=== PATIENT | male | born 1945 | race Caucasian/White ===

== ENCOUNTER → 2017-08-19 | Outpatient (CLI) | payer OTHER, MEDICARE ==
[~2017-08-19] MED LIST: OPTIRAY 320 IV PRN
--- NOTE | 2017-08-19 11:19 | DIAGNOSTIC IMAGING REPORT ---
ABD/PELVIS IV CONTRAST ONLY CT DOSE: 345.99 mGy.cm HISTORY: Obstruction. Pain. N40.1 Benign prostatic hyperplasia with urinary [id number] TECHNIQUE: Multiaxial CT images of the abdomen and pelvis were performed following the use of intravenous contrast. A dose lowering technique was utilized adhering to the principles of ALARA. COMPARISON STUDY: None. FINDINGS: Lung bases are clear. Mild fatty infiltration of liver. Prior cholecystectomy. Pancreas is uniform. Spleen is unremarkable. Kidneys negative for calcification. Left kidney is negative for hydronephrosis. Right kidney shows a mid pole exophytic cyst measuring 3.2 x 2.6 cm. Bowel pattern is considered nonobstructive. The appendix is normal. There are multiple small bladder calcifications. Prostate is mildly enlarged. Bowel pattern of the abdomen and pelvis is nonobstructive. There is no significant adenopathy. There are degenerative changes of the osseous structures throughout the low thoracic as well as lumbar spine and bony pelvis. No true lytic or blastic process is appreciated. IMPRESSION: 1. Multiple small bladder calculi. 2. Mild prostatic enlargement. 3. 3 cm right renal cyst. 4. Otherwise negative study status post cholecystectomy. The above report was generated using voice recognition software. It may contain grammatical, syntax or spelling errors. Electronically signed by: Salomón Melgar M.D. 08/19/2017 11:18 AM Dictated Date/Time: 08/19/2017 11:14 AM
== END | disposition home or self-care (01) ==
LOC: C.CTS 10:25
PROVIDERS: ATTEND Urology
DX: N40.1 Benign prostatic hyperplasia with lower urinary tract symptoms (principal); N21.0 Calculus in bladder; N28.1 Cyst of kidney, acquired

== ENCOUNTER → 2017-12-25 | Outpatient (CLI) | payer OTHER, MEDICARE ==
[2017-12-25 10:02] LABS: BLOOD UREA NITROGEN 29 mg/dl (7-18); CALCIUM 9.6 mg/dl (8.5-10.1); CARBON DIOXIDE 33 mmol/L (21-32); CREATININE 1.09 mg/dl (0.60-1.40); GLUCOSE 107 mg/dl (70-99); POTASSIUM 3.5 mmol/L (3.5-5.1); SODIUM 137 mmol/L (136-145)
== END | disposition home or self-care (01) ==
LOC: C.LAB1850 08:43
PROVIDERS: ATTEND Internal Medicine Endocrinology, Diabetes & Metabolism
DX: N25.81 Secondary hyperparathyroidism of renal origin (principal); E55.9 Vitamin D deficiency, unspecified; E83.50 Unspecified disorder of calcium metabolism

== ENCOUNTER 2024-05-08 10:21 | Observation (INO) ==
--- NOTE | 2024-05-08 11:43 | Emergency Department Note ---
Impression & Plan Stroke-like symptoms, Carotid arterial disease ED Provider Note NAME: KIRK GUERRERO AGE: 78 SEX: M : 1945 ARRIVES VIA: Walk-In INFORMANT: Patient, ED PROVIDER(S): Dre Boyd DO CHIEF COMPLAINT: Strokelike symptoms HPI: The patient is an 78-year-old male who is referred to the emergency department from [facility] for an evaluation of strokelike symptoms. The patient states that he went to bed last evening at approximately 11 PM. That was his normal time to go to bed and he felt well. He awoke at 3 AM to urinate. He states that he had noticed that he had numbness over the left side of his face but also into his left arm. He did not notice the symptoms somewhat into his left leg. He denies having any neck pain. He denies having any weakness in the arms or legs. He denies having any headache. He was seen at [facility] and referred to the emergency department for possible strokelike symptoms. The patient was recently admitted to our facility for pneumonia. He states he feels much better and has no complaints of cough or difficulty breathing. He denies having any chest pain. ROS: See above HPI for pertinent positives & negatives. A total of 10 systems reviewed and were otherwise negative. PAST MEDICAL HISTORY: See Below PAST SURGICAL HISTORY: See Below FAMILY HISTORY: See Below SOCIAL HISTORY: See Below HOME MEDICATIONS: See Below ALLERGIES: See Below VITALS: See Below PHYSICAL EXAMINATION: GENERAL: Patient is awake alert in no acute distress patient is resting comfortably and showing no signs of anxiety EYES: The conjunctivae are clear. The pupils are round and reactive. EARS, NOSE, MOUTH AND THROAT: The nose is without any evidence of any deformity. NECK: The neck is nontender and supple. There is no bruit noted to auscultation. RESPIRATORY: Normal respiratory effort is noted there is no evidence of wheezing rhonchi or rales CARDIOVASCULAR: Regular rate and rhythm noted there no murmurs rubs or gallops normal S1 normal S2. GASTROINTESTINAL: The abdomen is soft. Abdomen is nontender. MUSCULOSKELETAL/EXTREMITIES: There is no evidence of gross deformity full range of motion is noted in the hips and shoulders. SKIN: There is no obvious evidence of any rash. There are no petechiae, pallor or cyanosis noted. NEUROLOGIC: Patient is awake alert and oriented x3 strength is symmetric patellar reflexes are 2+ bilaterally MEDICAL DECISION MAKING: The patient is an 78-year-old male who presented to the emergency department for strokelike symptoms. Symptoms began less than 24 hours but the patient did not appear to have very significant NIH score at this time. He was not made a stroke alert. There is no concern for large vessel occlusion. I discussed the patient's laboratory and radiographic studies with him. The patient was found to have carotid artery disease. His symptoms could be caused by a central nervous system lesion. It is possible the patient could decompensate and may have a larger insult if he does have outpatient follow-up. For this reason I discussed his condition with the on-call [facility]. Triage Nursing notes reviewed. Prior medical records reviewed Vital Signs: reviewed and remarkable for no significant abnormalities Differential diagnosis: Infection, dehydration, metabolic abnormality, hypo/hyperglycemia, electrolyte disturbance, anemia, hypoxia, cardiac sources, intracerebral event, toxicologic, neurologic, as well as other pathologies. ER treatment provided: See below Diagnostics interpreted by me: ECG: EKG was obtained in the emergency department. My interpretation is normal sinus rhythm at 63 bpm. There is no ectopy. Right bundle-branch block pattern was noted. This was compared to a tracing from April 28, 2024. No changes were noted. Cardiac Monitoring: An order was placed for continuous cardiac monitoring. The monitor shows a rate of 71 bpm with sinus rhythm. Laboratory studies: As stated above and show below. Imaging studies: See below. Radiographic imaging was reviewed by myself Consultation(s): I discussed this case with the family practice resident who is on-call for the [facility]. Past Med/Surg History Problem List (Updated 05/08/24 @ 14:16 by Dre Boyd DO) Carotid arterial disease (Acute) Stroke-like symptoms (Acute) Transaminitis (Acute) Dyspnea (Acute) Pneumonia (Acute) Left carpal tunnel syndrome Encounter for pre-operative examination Dysphagia Moderate to severe aortic stenosis Chest pain (Acute) Prostate cancer screening encounter, options and risks discussed Bladder dysfunction Urinary retention Nephrolithiasis Urethral stricture Dysuria Nephrolithiasis 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[facility] Chronic prostatitis (Acute) Hypercalciuria (Acute) Hypothyroidism (Acute) Vitamin D deficiency (Acute) Medical History 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[facility] Hypothyroidism Chronic prostatitis Dysphagia "is doing better" Acid reflux hx, no current meds. History of colon polyps Urinary problem in male self cath daily in the morning. History of kidney stones Tricuspid regurgitation mild to moderate echo 10/2023 "valve getting a little smaller"; f/u [facility] cardio. Pulmonary hypertension mild Aortic stenosis Moderate per 03/29/21 ECHO echo 10/2023 "valve getting a little smaller"; f/u [facility]. HTN (hypertension) hx-controlled, stable per pt; no current meds Temporomandibular joint disorder occasional locking, happens infrequently History of COVID-19 08/2020--coughing--no residual symptoms Chronic sinusitis Benign prostatic hyperplasia with urinary obstruction HX Bladder stones HX Surgical History History of urologic surgery possibly 2 procedures in hx/pt unsure/unknown details. History of esophageal dilatation History of esophagogastroduodenoscopy (EGD) History of colonoscopy History of tooth extraction most teeth have been removed--states only has 6 teeth History of bilateral cataract extraction H/O knee surgery meniscus repair, RIGHT Hx of cholecystectomy History of carpal tunnel surgery right/left Family History Brother Kidney stone Father Cardiovascular disease Family history of prostate problems Cardiac disorder Stroke Sister Cancer Mother Squamous cell carcinoma Other No family history of adverse response to anesthesia Social History Smoking Status: Never smoker Second Hand Exposure: No; Do You Dip or Chew Tobacco: No; Hx Alcohol Use: No Hx Substance Use: No Preferred Language: Palestinian Communication Ability: Effective Shade Matcher Required: No Beliefs That Will Affect Care: None marital status: Current Living Situation: Spouse Feels Safe at Home: Yes Assistive Devices: Denture - Upper, Denture - Lower and Glasses Allergies Allergies Allergy/AdvReac Type Severity Reaction Status Date / Time No Known Allergies Allergy Verified 05/08/24 14:13 Home Meds Home Medications Medication Instructions Recorded Confirmed aspirin 81 mg chewable tablet 1 tab PO QAM 12/06/19 05/08/24 glucosamine-chondroitin 250 mg-200 1 tab PO QAM 12/06/19 05/08/24 mg tablet srpggyjg-hyj-brldx acid 0.4 1 tab PO QAM 12/06/19 05/08/24 mg-lycopene 300 mcg-lutein 250 mcg tablet (Centrum Silver) omega-3 fatty acids 1 cap PO QAM 12/10/23 05/08/24 calcitriol 0.25 mcg capsule 0.25 mcg PO QAM 12/24/23 05/08/24 (Rocaltrol) cefdinir 300 mg capsule 300 mg PO Q12H 05/08/24 05/08/24 Previous Rx's Medication Instructions Recorded levothyroxine 75 mcg tablet 75 mcg PO QAM #90 tabs 02/04/24 Results & Data (ED) Vital Signs Vital Signs - 24 hr 05/08/24 10:29 05/08/24 10:45 05/08/24 10:45 Temperature 36.4 C L Temperature Source Temporal Artery Scan Pulse Rate 76 68 66 Pulse Rate from SpO2 Sensor 65 Respiratory Rate 16 20 Respiratory Effort / Characteristics Non-Labored Spontaneous Respiratory Depth Normal Blood Pressure 136/82 Blood Pressure Mean 100 Pulse Oximetry 97 96 Oxygen Delivery Method Room Air Room Air Sepsis Recent Fever Within 48 Hours No Sepsis New/Unexplained Change in Mental Status No Sepsis Action Taken by Nursing No Action Required 05/08/24 10:57 05/08/24 11:00 05/08/24 11:21 Temperature Temperature Source Pulse Rate 70 66 65 Pulse Rate from SpO2 Sensor 68 66 65 Respiratory Rate 14 21 21 Respiratory Effort / Characteristics Respiratory Depth Blood Pressure Blood Pressure Mean Pulse Oximetry 97 98 98 Oxygen Delivery Method Room Air Room Air Room Air Sepsis Recent Fever Within 48 Hours Sepsis New/Unexplained Change in Mental Status Sepsis Action Taken by Nursing 05/08/24 11:33 05/08/24 12:12 05/08/24 13:42 Temperature Temperature Source Pulse Rate 61 68 71 Pulse Rate from SpO2 Sensor 60 67 Respiratory Rate 15 17 20 Respiratory Effort / Characteristics Respiratory Depth Blood Pressure 133/101 H 114/61 116/71 Blood Pressure Mean 111 78 86 Pulse Oximetry 98 98 98 Oxygen Delivery Method Room Air Sepsis Recent Fever Within 48 Hours Sepsis New/Unexplained Change in Mental Status Sepsis Action Taken by Retirement Medications Current Medication List: was personally reviewed by me Laboratory Data Attestation: I reviewed the patient's lab results. 05/08/24 10:48 05/08/24 10:48 Lab Results 05/08/24 Range/Units 10:48 WBC 8.51 (4.8-10.8) K/ul RBC 4.58 L (4.70-6.10) M/uL Hgb 13.4 L (14.0-18.0) g/dl Hct 40.6 L (42.0-52.0) % MCV 88.6 (80.0-100.0) fL MCH 29.3 (25.0-34.0) pg MCHC 33.0 (32.0-36.0) g/dL RDW Std Deviation 43.1 (36.4-46.3) fL RDW Coeff of Jayleen 13.2 (11.5-14.5) % Plt Count 260 (130-400) K/uL MPV 9.4 (9.4-12.4) fL Immature Gran % (Auto) 0.4 % Neut % (Auto) 77.1 % Lymph % (Auto) 14.8 % Latimer % (Auto) 5.3 % Eos % (Auto) 1.6 % Baso % (Auto) 0.8 % Neut # (Auto) 6.56 H (1.40-6.50) K/uL Lymph # (Auto) 1.26 (1.20-3.40) K/uL Latimer # (Auto) 0.45 (0.11-0.59) K/uL Eos # (Auto) 0.14 (0.00-0.50) K/uL Baso # (Auto) 0.07 (0.00-0.20) K/uL Immature Gran # (Auto) 0.03 (0.01-0.20) K/uL PT 11.1 (9.0-12.0) Seconds INR 1.0 (0.9-1.1) APTT 28 (21-31) Seconds PTT Ratio 1.0 Sodium 138 (136-145) mmol/L Potassium 4.1 (3.5-5.1) mmol/L Chloride 103 (98-107) mmol/L Carbon Dioxide 29 (21-32) mmol/L Anion Gap 6 (3-11) BUN 31 H (6-23) mg/dl Creatinine 0.92 (0.6-1.4) mg/dl Est Cr Clr Drug Dosing 63.8 ml/min Est GFR ( Amer) 90.7 ml/min Est GFR (Non-Af Amer) 78.3 ml/min BUN/Creatinine Ratio 33.7 H (10-20) Glucose 109 H (70-99(Fasting)) mg/dl Calcium 9.1 (8.6-10.3) mg/dl Magnesium 2.0 (1.7-2.4) mg/dl Total Bilirubin 0.5 (0.2-1.0) mg/dl AST 26 (13-39) U/L ALT 43 (7-52) U/L Alkaline Phosphatase 62 (34-104) U/L Troponin I High Sens 4.6 (0-20) pg/ml Total Protein 7.7 (6.0-8.3) gm/dl Albumin 4.0 (3.4-5.0) gm/dl Globulin 3.7 (2.5-4.0) gm/dl Albumin/Globulin Ratio 1.1 (0.9-2) Administered Medications Discontinued Medications Ioversol (Optiray 320 125ml) 118 ml IV ONCE ONE Stop: 05/08/24 12:44 Last Admin: 05/08/24 12:43 Dose: 118 ml Documented By: [facility] Imaging Data Attestation: I personally reviewed and interpreted this imaging study as follows: My Impression: 1 view chest x-ray was obtained in the emergency department. My interpretation is no free air, final report below. CT of the brain was obtained in the emergency department. My interpretation is no intracranial hemorrhage or mass effect, final report below. Radiologist's Impression: Chest X-Ray 05/08/24 11:11 XR chest 1V portable HISTORY: neuro deficit, acute stroke suspected COMPARISON: Chest 04/28/2024. FINDINGS: No pneumothorax. No pleural effusions. The cardiac silhouette remains top normal in size. No evidence for pulmonary edema. No acute fractures. The right lung airspace opacities have improved/resolved in the interval. No new focal lung consolidations to suggest a pneumonia. No evidence for pulmonary edema. IMPRESSION: Interval improvement/resolution of the right lung airspace opacities. ACT 112: Negative or not required by law. Electronically signed by: Alphonso Macedo M.D. 05/08/2024 12:[address] 05/08/24 11:11 CT SCAN OF THE BRAIN WITHOUT IV CONTRAST CLINICAL HISTORY: Neurological deficit. Stroke like symptoms. COMPARISON STUDY: No priors. TECHNIQUE: Unenhanced axial CT scan of the brain is performed from the vertex to the skull base. A dose lowering technique was utilized adhering to the principles of ALARA. FINDINGS: Brain parenchyma: There is age-related involutional change noting mild subcortical and periventricular microangiopathic disease. There is no hemorrhage, mass effect, or evidence of acute territorial ischemia by CT criteria. Dixon-white matter differentiation is preserved. No extra-axial fluid collection is seen. Ventricles, sulci, cisterns: Prominent secondary to involutional change. Intracranial vasculature: There is atherosclerotic calcification of the cavernous carotid arteries. Calvarium: Unremarkable. Sinuses and mastoids: There is mild mucosal thickening in the right maxillary antrum. The remaining visualized paranasal sinuses are clear. There is a small right mastoid effusion. The left mastoid air cells are well pneumatized. Orbits: The bony orbits are grossly intact. There are bilateral ocular lens implants IMPRESSION: There is no hemorrhage, mass effect, or evidence of acute territorial ischemia by CT criteria. ACT 112: Negative or not required by law. Electronically signed by: Quan Ochoa M.D. 05/08/2024 12:54 PM Head CTA 05/08/24 11:11 HEAD CTA HISTORY: neuro deficit, acute stroke suspected TECHNIQUE: Multiaxial CT images of the head were performed following the intravenous administration of contrast to evaluate the major cerebral vessels. 3D/MIP images were also obtained. Sagittal and coronal reformats were reviewed. A dose lowering technique was utilized adhering to the principles of ALARA. COMPARISON: None. FINDINGS: There is no mass, hematoma, midline shift, or acute infarct. Visualized intracranial internal carotid arteries, distal vertebral arteries, and basilar artery are widely patent. There is no significant stenosis, occlusion, or aneurysm seen within the bilateral ACAs, MCAs, or fishery biologist. The major dural venous sinuses are patent. Mild calcified plaque within the bilateral carotid siphons. The distal right vertebral artery is hypoplastic. This is likely a normal variant. IMPRESSION: No significant stenosis, occlusion, or aneurysm within the [place]. ACT 112: Negative or not required by law. Electronically signed by: Alphonso Macedo M.D. 05/08/2024 1:12 PM Neck CTA 05/08/24 11:11 CT angio neck with con CLINICAL HISTORY: neuro deficit, acute stroke suspected TECHNIQUE: CT angiography of the neck was performed following intravenous administration of iodinated contrast. Coronal and sagittal MIPS were obtained from the axial data set and were submitted for review. Automated dose lowering techniques and/or adjustment according to patient size were utilized for this examination. All measurements were calculated based on NASCET criteria. Comparison: None available at the time of this dictation. FINDINGS: Lungs and soft tissues are unremarkable. CTA Neck: A 3 vessel aortic arch is shown. There is no significant atherosclerotic plaque in the aortic arch or the origins of the innominate, left common carotid, and left subclavian arteries. Hemodynamically significant stenosis of the right internal carotid artery at the carotid bulb is seen secondary to extensive atherosclerosis. There is occlusion at the origin of the right vertebral artery with distal reconstitution. The left vertebral artery is dominant. IMPRESSION: 1. Likely chronic hemodynamically significant stenosis of the right internal carotid artery. 2. 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 Assessment of stenosis of the internal carotid arteries is based on NASCET criteria. ACT 112: Negative or not required by law. Electronically signed by: Valdemar Obrien M.D. 05/08/2024 12:54 PM Discharge Plan Visit Data Chief Complaint: Referred by Doctor Stated Complaint: DOCTOR REFERRED FOR CT SCAN ED Provider: Dre Boyd ED Midlevel Provider: Queta Graf Discharge Problem: Stroke-like symptoms, Carotid arterial disease Forms Stand Alone Forms: My [facility] [employer] Prescriptions Prescriptions: No Action aspirin 81 mg tablet,chewable 1 tab PO QAM Centrum Silver 0.4-300-250 mg-mcg-mcg tablet 1 tab PO QAM glucosamine-chondroitin 250-200 mg tablet 1 tab PO QAM levothyroxine 75 mcg tablet 75 mcg PO QAM Qty: 90 1RF cefdinir 300 mg capsule 300 mg PO Q12H Rx Instructions: Start Date 04/28/24 x10 day supply/ As of 05/08/24 pt has 2 doses left omega-3 fatty acids Capsule 1 cap PO QAM Patient Comments: omega xl calcitriol [Rocaltrol] 0.25 mcg capsule 0.25 mcg PO QAM Referrals Referrals: Hakan Marin [Primary Care Provider] - Discharge Problem: Carotid arterial disease Qualifiers: Carotid artery disease type: unspecified Laterality: unspecified laterality Q ualified Code(s): I77.9 - Disorder of arteries and arterioles, unspecified
[2024-05-08 11:57] LABS: Basophils # (auto) 0.07 K/uL (0.00-0.20); Basophils % (auto) 0.8 %; Eosinophils # (auto) 0.14 K/uL (0.00-0.50); Eosinophils % (auto) 1.6 %; Hematocrit (blood only) 40.6 % (42.0-52.0); Hemoglobin 13.4 g/dl (14.0-18.0); Immature Granulocytes # (auto) 0.03 K/uL (0.01-0.20); Immature Granulocytes % (auto) 0.4 %; Lymphocytes # (auto) 1.26 K/uL (1.20-3.40); Lymphocytes % (auto) 14.8 %; Mean Corpuscular Hemoglobin 29.3 pg (25.0-34.0); Mean Corpuscular Volume 88.6 fL (80.0-100.0); Mean Platelet Volume 9.4 fL (9.4-12.4); Monocytes # (auto) 0.45 K/uL (0.11-0.59); Monocytes % (auto) 5.3 %; Neutrophils # (auto) 6.56 K/uL (1.40-6.50); Neutrophils % (auto) 77.1 %; Platelet Count 260 K/uL (130-400); RDW Coefficient of Variation 13.2 % (11.5-14.5); RDW Standard Deviation 43.1 fL (36.4-46.3); Red Blood Count 4.58 M/uL (4.70-6.10); White Blood Count 8.51 K/ul (4.8-10.8)
[2024-05-08 12:04] LABS: Albumin Globulin Ratio 1.1 (0.9-2); BUN Creatinine Ratio 33.7 (10-20); Bilirubin,Total 0.5 mg/dl (0.2-1.0); Calcium 9.1 mg/dl (8.6-10.3); Creatinine Clr Calc Pharmacy 63.8 ml/min; Est GFR (African American) 90.7 ml/min; Est GFR (Non-African American) 78.3 ml/min; Globulin 3.7 gm/dl (2.5-4.0); Potassium 4.1 mmol/L (3.5-5.1); Total Protein 7.7 gm/dl (6.0-8.3)
[2024-05-08 12:12] LABS: Troponin I High Sensitivity 4.6 pg/ml (0-20)
[2024-05-08 12:17] LABS: Partial Thromboplastin Time 28 Seconds (21-31); Prothrombin Time 11.1 Seconds (9.0-12.0)
--- NOTE | 2024-05-08 12:19 | XRay Report ---
XR chest 1V portable HISTORY: neuro deficit, acute stroke suspected COMPARISON: Chest 04/28/2024. FINDINGS: No pneumothorax. No pleural effusions. The cardiac silhouette remains top normal in size. N o evidence for pulmonary edema. No acute fractures. The right lung airspace opacities have improved/r esolved in the interval. No new focal lung consolidations to suggest a pneumonia. No evidence for pul monary edema. IMPRESSION: Interval improvement/resolution of the right lung airspace opacities. ACT 112: Negative or not required by law. Electronically signed by: Alphonso Macedo M.D. 05/08/2024 12:18 PM
[2024-05-08] MEDS: OPTIRAY 320 125ml IV ONE (12:43)
--- NOTE | 2024-05-08 12:55 | CT Scan Report ---
CT SCAN OF THE BRAIN WITHOUT IV CONTRAST CLINICAL HISTORY: Neurological deficit. Stroke like symptoms. COMPARISON STUDY: No priors. TECHNIQUE: Unenhanced axial CT scan of the brain is performed from the vertex to the skull base. A do se lowering technique was utilized adhering to the principles of ALARA. FINDINGS: Brain parenchyma: There is age-related involutional change noting mild subcortical and periventricula r microangiopathic disease. There is no hemorrhage, mass effect, or evidence of acute territorial isc hemia by CT criteria. Dixon-white matter differentiation is preserved. No extra-axial fluid collection is seen. Ventricles, sulci, cisterns: Prominent secondary to involutional change. Intracranial vasculature: There is atherosclerotic calcification of the cavernous carotid arteries. Calvarium: Unremarkable. Sinuses and mastoids: There is mild mucosal thickening in the right maxillary antrum. The remaining v isualized paranasal sinuses are clear. There is a small right mastoid effusion. The left mastoid air cells are well pneumatized. Orbits: The bony orbits are grossly intact. There are bilateral ocular lens implants IMPRESSION: There is no hemorrhage, mass effect, or evidence of acute territorial ischemia by CT rudi joseph. ACT 112: Negative or not required by law. Electronically signed by: Quan Ochoa M.D. 05/08/2024 12:54 PM
--- NOTE | 2024-05-08 12:55 | CT Scan Report ---
CT angio neck with con CLINICAL HISTORY: neuro deficit, acute stroke suspected TECHNIQUE: CT angiography of the neck was performed following intravenous administration of iodinated contrast. Coronal and sagittal MIPS were obtained from the axial data set and were submitted for rev iew. Automated dose lowering techniques and/or adjustment according to patient size were utilized fo r this examination. All measurements were calculated based on NASCET criteria. Comparison: None available at the time of this dictation. FINDINGS: Lungs and soft tissues are unremarkable. CTA Neck: A 3 vessel aortic arch is shown. There is no significant atherosclerotic plaque in the aor tic arch or the origins of the innominate, left common carotid, and left subclavian arteries. Hemody namically significant stenosis of the right internal carotid artery at the carotid bulb is seen secon brianna to extensive atherosclerosis. There is occlusion at the origin of the right vertebral artery wit h distal reconstitution. The left vertebral artery is dominant. IMPRESSION: 1. Likely chronic hemodynamically significant stenosis of the right internal carotid artery. 2. 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 Assessment of stenosis of the internal carotid arteries is based on NASCET criteria. ACT 112: Negative or not required by law. Electronically signed by: Valdemar Obrien M.D. 05/08/2024 12:54 PM
--- NOTE | 2024-05-08 13:13 | CT Scan Report ---
HEAD CTA HISTORY: neuro deficit, acute stroke suspected TECHNIQUE: Multiaxial CT images of the head were performed following the intravenous administration o f contrast to evaluate the major cerebral vessels. 3D/MIP images were also obtained. Sagittal and co boris reformats were reviewed. A dose lowering technique was utilized adhering to the principles of A MICHA. COMPARISON: None. FINDINGS: There is no mass, hematoma, midline shift, or acute infarct. Visualized intracranial [employer] al carotid arteries, distal vertebral arteries, and basilar artery are widely patent. There is no sig nificant stenosis, occlusion, or aneurysm seen within the bilateral ACAs, MCAs, or cosmetics presser. The major du ral venous sinuses are patent. Mild calcified plaque within the bilateral carotid siphons. The distal right vertebral artery is hypoplastic. This is likely a normal variant. IMPRESSION: No significant stenosis, occlusion, or aneurysm within the [place]. ACT 112: Negative or not required by law. Electronically signed by: Alphonso Macedo M.D. 05/08/2024 1:12 PM
--- NOTE | 2024-05-08 14:50 | Electrocardiogram Report ---
Test Reason : Blood Pressure : */* mmHG Vent. Rate : 63 BPM Atrial Rate : 63 BPM P-R Int : 134 ms QRS Dur : 146 ms QT Int : 446 ms P-R-T Axes : 75 144 56 degrees QTcB Int : 456 ms Normal sinus rhythm Right bundle branch block Abnormal ECG When compared with ECG of 28-Apr-2024 09:34, Vent. rate has decreased by 35 bpm Confirmed by Jose M Saha ([id number]) on 05/08/2024 2:50:00 PM Referred By: REFERRED SELF Confirmed By: Jose M Saha
--- NOTE | 2024-05-08 15:02 | History & Physical Report ---
Date of Service May 08, 2024 Assessment & Plan (1) Stroke-like symptoms: (2) Dysphagia: (3) Moderate to severe aortic stenosis: (4) Tertiary hyperparathyroidism: (5) Hypothyroidism: Plan 78 year old male with PMH of Dysphagia, Hypothyroidism, Tertiary hyperparathyroidism, and known severe aortic stenosis found with stroke like symptoms Left sided Facial Numbness/ Possible TIA - Will admit to med surg/ telemetry for stroke rule out - Left sided numbness still present on exam, improving. Rest of Neuro exam normal - Hx of severe Aortic stenosis - Head CT: negative for bleeding, Neck CTA : significant stenosis of the right internal carotid artery and occlusion of the right origin of the right vertebral artery - MRI head ordered - Echo with bubble ordered - [facility] record reviewed, no bubble study - Continue ASA 81mg daily - speech therapy eval ordered- NPO for now - Atorvastatin 40 mg started - PT/OT ordered - consider Neurology consult in AM if symptoms worsen - Hgb A1c, Lipid panel ordered am Hypothyroidism: continue Levothyroxine 75 mcg Dysphagia: Recent EDG with esophageal dilatation and notes resolution of his current symptoms - speech therapy consulted Dispo: Observation - Med surg/ Telemetry DVT prophylaxis: Lovenox sq AM FEN: NPO now, may eat after speech tharapy eval Full code History of Present Illness Primary Care Provider: Hakan Marin 78 year old male with PMH of Dysphagia, Hypothyroidism, Tertiary hyperparathyroidism, and known Severe aortic stenosis that presented to our facility with numbness over his left side face, and his left arm. He refers going to bed at 11 pm last night feeling normal. He woke up at 3 am to use the bathroom and felt numbness on his left side. He denied any weakness in the arms or legs. He went to [facility] this am where he was then sent to our Ed for further evaluation. at the moment of my evaluation he was found alert and oriented in NAD, at bedside. He refers the numbness on his left face is still present but had improved. No weakness, numbness, or tingling sensation on his extremities. No gait disturbances. No He denied any headaches, SOB, visual disturbances, chest pain or any other symptoms. Dale refers he has a history of severe aortic stenosis which is being monitor by [facility] Cardiology for possible replacement. No plan for now, current plan iis continue to monitoring symptoms. ED course: CT head: No hemorrhages. Head CTA:No significant stenosis, occlusion, or aneurysm within the [place]. Neck CTA: significant stenosis of the right internal carotid artery and occlusion of the right origin of the right vertebral artery. CXR: negative for acute pathology. Labs unremarkable Allergies Allergy/AdvReac Type Severity Reaction Status Date / Time No Known Allergies Allergy Verified 05/08/24 14:13 Home Medications Medication Instructions Recorded Confirmed Type aspirin 81 mg chewable tablet 1 tab PO QAM 12/06/19 05/08/24 History glucosamine-chondroitin 250 mg-200 1 tab PO QAM 12/06/19 05/08/24 History mg tablet pyhgquar-gyq-obndq acid 0.4 1 tab PO QAM 12/06/19 05/08/24 History mg-lycopene 300 mcg-lutein 250 mcg tablet (Centrum Silver) omega-3 fatty acids 1 cap PO QAM 12/10/23 05/08/24 History calcitriol 0.25 mcg capsule 0.25 mcg PO QAM 12/24/23 05/08/24 History (Rocaltrol) levothyroxine 75 mcg tablet 75 mcg PO QAM #90 tabs 02/04/24 05/08/24 Rx cefdinir 300 mg capsule 300 mg PO Q12H 05/08/24 05/08/24 History Past Med/Surg History Problem List (Updated 05/08/24 @ 14:16 by Dre Boyd DO) Carotid arterial disease (Acute) Stroke-like symptoms (Acute) Transaminitis (Acute) Dyspnea (Acute) Pneumonia (Acute) Left carpal tunnel syndrome Encounter for pre-operative examination Dysphagia Moderate to severe aortic stenosis Chest pain (Acute) Prostate cancer screening encounter, options and risks discussed Bladder dysfunction Urinary retention Nephrolithiasis Urethral stricture Dysuria Nephrolithiasis 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[facility] Chronic prostatitis (Acute) Hypercalciuria (Acute) Hypothyroidism (Acute) Vitamin D deficiency (Acute) Medical History 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[facility] Hypothyroidism Chronic prostatitis Dysphagia "is doing better" Acid reflux hx, no current meds. History of colon polyps Urinary problem in male self cath daily in the morning. History of kidney stones Tricuspid regurgitation mild to moderate echo 10/2023 "valve getting a little smaller"; f/u [facility]. Pulmonary hypertension mild Aortic stenosis Moderate per 03/29/21 ECHO echo 10/2023 "valve getting a little smaller"; f/u [facility] cardio. HTN (hypertension) hx-controlled, stable per pt; no current meds Temporomandibular joint disorder occasional locking, happens infrequently History of COVID-19 08/2020--coughing--no residual symptoms Chronic sinusitis Benign prostatic hyperplasia with urinary obstruction HX Bladder stones HX Surgical History History of urologic surgery possibly 2 procedures in hx/pt unsure/unknown details. History of esophageal dilatation History of esophagogastroduodenoscopy (EGD) History of colonoscopy History of tooth extraction most teeth have been removed--states only has 6 teeth History of bilateral cataract extraction H/O knee surgery meniscus repair, RIGHT Hx of cholecystectomy History of carpal tunnel surgery right/left Family History Brother Kidney stone Father Cardiovascular disease Family history of prostate problems Cardiac disorder Stroke Sister Cancer Mother Squamous cell carcinoma Other No family history of adverse response to anesthesia Social History Smoking Status: Never smoker Second Hand Exposure: No; Do You Dip or Chew Tobacco: No; Hx Alcohol Use: No Hx Substance Use: No Preferred Language: Polish Communication Ability: Effective 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: No Beliefs That Will Affect Care: None marital status: Current Living Situation: Spouse Other Information That Helps Us Care for You: No Feels Safe at Home: Yes Safety Concerns: Feels Safe At This Time Assistive Devices: None Review of Systems Review of Systems: as per HPI Physical Exam Constitutional: WD/WN, vitals as above Eyes: PERRL, conjunctivae normal, anicteric sclerae ENMT: external ear and nose normal, oropharynx normal Respiratory: normal respiratory effort, lungs clear to auscultation Cardiovascular: RRR, no murmur, no edema Gastrointestinal (Abdomen): normal bowel sounds, soft, nontender, no hepatosplenomegaly Musculoskeletal: no cyanosis or clubbing, extremities motor strength 5/5 Neurologic: PERRL, EOMI, accommodation nl, no face palsy, no dysarthria Speech / Cognition: normal speech Cranial Nerves: sense of smell intact, PERRL, normal accommodation, normal facial strength, normal hearing, able to rotate head bilaterally and able to elevate shoulders bilaterally Left sided face with decreased sensation on light touch Results & Data Results & Data Vital Signs (Past 12 Hours) Vital Signs Temp Pulse Resp BP Pulse Ox O2 Del Method 05/08/24 14:54 72 05/08/24 13:42 71 20 116/71 98 Room Air 05/08/24 12:12 68 17 114/61 98 05/08/24 11:33 61 15 133/101 H 98 05/08/24 11:21 65 21 98 Room Air 05/08/24 11:00 66 21 98 Room Air 05/08/24 10:57 70 14 97 Room Air 05/08/24 10:45 66 20 96 Room Air 05/08/24 10:45 68 05/08/24 10:29 36.4 C L 76 16 136/82 97 Room Air Code Status & VTE Plan VTE Prophylaxis Plan VTE Prophylaxis will be ordered: Yes Supervising Physician Co-Signing Physician Notes I personally saw and examined the patient. I verified all gregory points and agree with resident physician Dr Clarence Reza PA-C with the following exceptions and/or additions: 78-year-old male presents to the ER with left facial numbness that started last night. O/E HS RRR, no murmurs, Chest CTAB, Abdo SNT, CN2-> 12 intact other than left facial numbness which he reports has been improving, no facial droop, no pronator drift, b/l extremity strength 5/5 without sensation loss A/P Acute CVA - aspirin and atorvastatin already given, will add clopidogrel, TTE, lipid panel and HbA1C with AM labs, no a. fib currently on telemetry. Consult neurology. Suspected CVA from right internal carotid artery, I am unclear from the CT report whether this is amenable for carotid endarterectomy and will defer to neurology regarding this. Patient can eat as passed dysphagia screen - diet order entered. Resident Activity Tracking Resident Involvement: Resident Care Provided Care Provided: Adult [facility]
[2024-05-08] MEDS: ATORVASTATIN 40 MG TAB PO ONE (15:15)
[2024-05-08] MEDS: ASPIRIN 81 MG ECTAB PO STA (15:15)
[2024-05-08] MEDS ORDERED: ONDANSETRON INJ 2 MG/ML 2 ML VIAL IV PRN (16:59)
[2024-05-08] MEDS ORDERED: PHARMACIST DISCHARGE MED REC CONSULT PRN (16:59)
[2024-05-08] MEDS ORDERED: ACETAMINOPHEN 325 MG TAB PO PRN (16:59)
[2024-05-08] MEDS: GADOBUTROL 30ML VIAL IV ONE (18:34)
--- NOTE | 2024-05-08 19:44 | Magnetic Resonance Report ---
MR brain wo/w con CLINICAL HISTORY: TIA TECHNIQUE: Multiplanar and multisequence MR images of the brain were obtained prior to and following administration of gadolinium contrast. Comparison: Comparison is made to CTA head and neck 05/08/2024 FINDINGS: There are punctate foci of restricted diffusion in the posterior right frontal lobe. The white matter is unremarkable. Ex vacuo ventriculomegaly and sulcal enlargement is noted compatible with diffuse v olume loss. No mass or abnormal enhancement is seen. There is no mass effect or midline shift. There is no evidence of acute intraparenchymal hemorrhage. No extra axial fluid collections are seen. The c orpus callosum, pituitary gland, and cerebellar tonsils appear grossly unremarkable. Flow voids of the major intracranial arterial vessels are identified. The imaged portions of the para nasal sinuses, mastoid air cells, and orbits are unremarkable. IMPRESSION: Punctate foci of restricted diffusion in the right frontal lobe which may represent tiny embolic stro kes. ACT 112: Negative or not required by law. Electronically signed by: Valdemar Obrien M.D. 05/08/2024 7:41 PM
[2024-05-08] MEDS: ENOXAPARIN INJ 40 MG/0.4 ML SYR SQ SCH (20:37)
[2024-05-08] MEDS: CLOPIDOGREL BISULFATE 300 MG TAB PO STA (21:46)
--- NOTE | 2024-05-08 22:01 | Billing Data ---
Date of Service May 08, 2024 Coding Level of Care Code 03481 INT INP/OBS CARE
[2024-05-09 05:58] LABS: Basophils # (auto) 0.11 K/uL (0.00-0.20); Basophils % (auto) 0.9 %; Eosinophils # (auto) 0.15 K/uL (0.00-0.50); Eosinophils % (auto) 1.2 %; Hematocrit (blood only) 40.8 % (42.0-52.0); Hemoglobin 13.5 g/dl (14.0-18.0); Immature Granulocytes # (auto) 0.05 K/uL (0.01-0.20); Immature Granulocytes % (auto) 0.4 %; Lymphocytes # (auto) 1.54 K/uL (1.20-3.40); Lymphocytes % (auto) 12.1 %; Mean Corpuscular Hemoglobin 29.4 pg (25.0-34.0); Mean Corpuscular Hgb Conc 33.1 g/dL (32.0-36.0); Mean Corpuscular Volume 88.9 fL (80.0-100.0); Mean Platelet Volume 9.3 fL (9.4-12.4); Monocytes # (auto) 0.93 K/uL (0.11-0.59); Monocytes % (auto) 7.3 %; Neutrophils # (auto) 9.91 K/uL (1.40-6.50); Neutrophils % (auto) 78.1 %; Platelet Count 237 K/uL (130-400); RDW Coefficient of Variation 13.2 % (11.5-14.5); RDW Standard Deviation 42.9 fL (36.4-46.3); Red Blood Count 4.59 M/uL (4.70-6.10); White Blood Count 12.69 K/ul (4.8-10.8)
[2024-05-09 06:13] LABS: BUN Creatinine Ratio 25.8 (10-20); Calcium 8.9 mg/dl (8.6-10.3); Chol HDL Ratio 4.9 (0-5); Creatinine Clr Calc Pharmacy 62.9 ml/min; Est GFR (African American) 89.5 ml/min; Est GFR (Non-African American) 77.3 ml/min; Potassium 4.1 mmol/L (3.5-5.1)
[2024-05-09] MEDS: LEVOTHYROXINE SODIUM 75 MCG TABLET PO SCH (06:25)
--- NOTE | 2024-05-09 07:19 | Hospitalist Progress Note ---
Date of Service May 09, 2024 Assessment & Plan (1) Acute CVA (cerebrovascular accident): (2) Moderate to severe aortic stenosis: (3) Dysphagia: (4) Tertiary hyperparathyroidism: (5) Hypothyroidism: (6) HTN (hypertension): Plan 78 year old male with PMH of Dysphagia, Hypothyroidism, Tertiary hyperparathyroidism, and known severe aortic stenosis found with stroke like symptoms 1. Acute CVA; Likely Embolic w/o focal deficit Presented with Left sided Facial Numbness; Admitted for Stroke R/O History guidry S/O Stroke; Physical Exam normal ; no focal deficit CBC and CHEM benign. CT / CT angiography of the head: Unremarkable CT angiography of the neck: Old right vertebral occlusion at the origin Significant stenosis of the right internal carotid artery (extensive atherosclerosis) 75% stenosis at the origin of RCA for 1 cm MRI Brain: Several punctate right frontal distribution acute strokes consistent with emboli. Minimal old small vessel ischemic disease. Neuro consult: Acute onset CVA, punctate strokes R frontal head Likely embolic from the significantly stenosed RCA DAPT : 81 mg aspirin +75 mg clopidogrel daily Hold NATALIE pending Echo; NATALIE only if only clots. Atorvastatin 40 mg daily. Vascular surgery consult on Outpatient basis for RCA Stenosis PT/OT Evaluation: Functional Baseline/ safe to return home/ Home PT advised Speech: Baseline function intact Overnight Tele: Sinus Rhythm, 80-90/m 2. Severe Aortic stenosis Echo: Mod to Severe Increased severity of AV gradient Mod Conc LVH, preserved systolic function - Hgb A1c: 5.7 Lipid panel:Chol 186 /LDL 135 / HDL 38 3. Hypertension BP range in admission: 111-159/ 58-101 No headache, palpitation, chest pain 4. Hypothyroidism: Continue Levothyroxine 75 mcg TSH: 2.7 (11/17/23) 5. Resolving right-sided pneumonia Under Cefdinir 300 BID/ Azithromycin: 500 Clinically Stable Dispo: Observation - Med surg/ Telemetry DVT prophylaxis: Lovenox sq AM Admission and Anticipated Discharge Date Admission Date: May 08, 2024 Subjective Mr. Hunter is usually healthy 78 year man with PMH of Dysphagia, Hypothyroidism, tertiary hyperparathyroidism, and known severe aortic stenosis found with stroke like symptoms. evening, he was underneath a vehicle with a lot of pushing with his arms and bending/twisting of his neck trying to drill and repair. He felt that he may have had a little bit of numbness on the left side of his head upto shoulder.He felt fine below shoulder. Right side was normal. His father having stroke history and he being aware of , came to ER for further evaluation. He had no pain or headache, speech issue, swallowing problem, vision issue, or balance problem. Today morning she was lying comfortably in bed in propped op position. No new complain, no SOC Review of Systems Review of Systems: as per HPI Results & Data Results & Data Vital Signs (Past 12 Hours) Vital Signs Temp Pulse Resp BP Pulse Ox O2 Del Method 05/09/24 03:09 36.9 C 75 18 119/70 95 Room Air 05/08/24 22:56 36.8 C 87 18 114/68 95 Room Air 05/08/24 19:52 Room Air
[2024-05-09 08:00] VITALS: RESP 16
[2024-05-09] MEDS: CALCITRIOL 0.25 MCG CAPSULE PO SCH (08:26)
[2024-05-09] MEDS: CLOPIDOGREL BISULFATE 75 MG TAB PO SCH (08:26)
[2024-05-09] MEDS: OMEGA-3 (PURIFIED FISH OIL) 1 GM CAP PO SCH (08:26)
[2024-05-09] MEDS: ATORVASTATIN 40 MG TAB PO SCH (08:26)
[2024-05-09] MEDS: CEROVITE ADV FORMULA TAB PO SCH (08:26)
[2024-05-09] MEDS: ASPIRIN 81 MG CHEW PO SCH (08:27)
[2024-05-09] MEDS ORDERED: LEVOTHYROXINE SODIUM 75 MCG TABLET PO SCH (09:00)
--- NOTE | 2024-05-09 09:09 | Neurology Consultation ---
Date of Consultation May 09, 2024 Assessment & Plan (1) Acute CVA (cerebrovascular accident): (2) Carotid arterial disease: (3) Moderate to severe aortic stenosis: Plan This patient had the onset of acute stroke likely late May 07 or early May 08. These are several punctate strokes in the right frontal head region and may be embolic from the right carotid artery (he did a lot of head turning and twisting underneath the car the evening before). With his history of aortic stenosis I cannot exclude these being embolic from the heart. Clinically he is doing quite well and he is left face and upper arm dysesthesias are essentially resolved. He has no other focal neurologic findings, meningeal signs, or encephalopathy. 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 Surprisingly, given his age, he has very little old small vessel ischemic disease present on MRI. His history of hypertension is his biggest risk factor for small vessel ischemic disease, in addition to his age. CT angiography showed an occluded right vertebral artery at the origin which is likely old and a 75% stenotic right internal carotid artery at the origin with extensive plaque. Recommendations: 1. Awaiting echocardiogram results. 2. Agree with dual antiplatelet therapy for now with 81 mg aspirin +75 mg clopidogrel daily. 3. No anticoagulation, unless echo cardiogram suggest embolic source from the heart 4. With the patient in his 80s, and a total cholesterol of 186, I would not consider him to be a high-dose statin candidate. Therefore, I agree with atorvastatin 40 mg daily. 5. The patient (could be as an outpatient) would benefit from a vascular surgery consult regarding internal carotid artery stenosis. 6. Please contact me if I can be of further assistance on this case and he can follow-up with neurology, if desired, 3 to 4 weeks after discharge with a neurology PA Overall, I spent a total of 100 minutes with this case including review of records, review of MRI and CT films, direct evaluation the patient at bedside, report generation, and discussion of the case with the patient and RN at bedside, Dr. Ochoa radiology, and Dr. Wu, including differential diagnosis and treatment options. History of Present Illness Reason for Consultation: Patient is an 78-year-old, who was asked to see at the request of Dr. Gonzales, for neurologic consultation regarding stroke Requesting Physician: Dr. Gonzales Attending Physician: Edwin Bardales, DO History of Present Illness This patient has a longstanding history of relatively controlled hypertension (15 years), hypothyroidism on levothyroxine, and a cardiac valve issue followed by Dr. De La Fuente as an outpatient. According to previous echocardiograms he has a moderate to severe aortic stenosis with moderate concentric left ventricular hypertrophy. He has been on 81 mg aspirin daily for years. 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 On the evening of May 07 he was underneath a vehicle with a lot of pushing with his arms and bending/twisting of his neck trying to drill and repair. He ended up going to sleep around 1130 that evening and felt that he may have had a little bit of dysesthesia on the left side of his head. He woke around 0300 on May 08 to urinate. He noted numbness and tingling on the left side of his face and head as well as across the shoulder into the upper left arm. The left lower extremity and left hand were not involved. He had no pain or headache, speech issue, swallowing problem, vision issue, or balance problem. He arrived to the emergency room May 08 at 1029, with a pulse of 76 and regular, respiratory rate 16, blood pressure 136/82, temperature 36.4, and O2 saturation 97%. Physical examination in the ER was largely unremarkable/normal. CBC and CHEM profile were unremarkable. Chest x-ray was markedly improved (pneumonia earlier in the month). CT scan of the head was unremarkable. CT angiography of the head was normal. There was no MCA distribution stenosis CT angiography of the neck showed an old right vertebral occlusion at the origin as well as a significant stenosis of the right internal carotid artery (extensive atherosclerosis). I reviewed these films with Dr. Ochoa and he believes there is an old occluded right vertebral at the origin as well as a 75% stenosis at the origin of the right internal carotid artery with a length of approximately 1 cm. MRI of the brain showed several punctate right frontal distribution acute strokes consistent with emboli. In addition there was minimal (considering his age) old small vessel ischemic disease. I reviewed these films He was put on clopidogrel in addition to the aspirin. This morning he feels that his symptoms are essentially resolved. He feels back to baseline. Blood pressure today is 123/66. CBC and CHEM profile were largely unremarkable. Hemoglobin A1c is pending, total cholesterol 186, triglycerides 67. Allergies Allergy/AdvReac Type Severity Reaction Status Date / Time No Known Allergies Allergy Verified 05/08/24 14:13 Home Medications Medication Instructions Recorded Confirmed Type aspirin 81 mg chewable tablet 1 tab PO QAM 12/06/19 05/08/24 History glucosamine-chondroitin 250 mg-200 1 tab PO QAM 12/06/19 05/08/24 History mg tablet tcmkyoth-wij-rfxxq acid 0.4 1 tab PO QAM 12/06/19 05/08/24 History mg-lycopene 300 mcg-lutein 250 mcg tablet (Centrum Silver) omega-3 fatty acids 1 cap PO QAM 12/10/23 05/08/24 History calcitriol 0.25 mcg capsule 0.25 mcg PO QAM 12/24/23 05/08/24 History (Rocaltrol) levothyroxine 75 mcg tablet 75 mcg PO QAM #90 tabs 02/04/24 05/08/24 Rx cefdinir 300 mg capsule 300 mg PO Q12H 05/08/24 05/08/24 History Patient History Medical History 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[place] [facility] Hypothyroidism Chronic prostatitis Dysphagia "is doing better" Acid reflux hx, no current meds. History of colon polyps Urinary problem in male self cath daily in the morning. History of kidney stones Tricuspid regurgitation mild to moderate echo 10/2023 "valve getting a little smaller"; f/u [facility] cardio. Pulmonary hypertension mild Aortic stenosis Moderate per 03/29/21 ECHO echo 10/2023 "valve getting a little smaller"; f/u [facility]. HTN (hypertension) hx-controlled, stable per pt; no current meds Temporomandibular joint disorder occasional locking, happens infrequently History of COVID-19 08/2020--coughing--no residual symptoms Chronic sinusitis Benign prostatic hyperplasia with urinary obstruction HX Bladder stones HX Surgical History History of urologic surgery possibly 2 procedures in hx/pt unsure/unknown details. History of esophageal dilatation History of esophagogastroduodenoscopy (EGD) History of colonoscopy History of tooth extraction most teeth have been removed--states only has 6 teeth History of bilateral cataract extraction H/O knee surgery meniscus repair, RIGHT Hx of cholecystectomy History of carpal tunnel surgery right/left Family History Brother Kidney stone Father , age 92 Cardiovascular disease Family history of prostate problems Cardiac disorder Stroke Sister Cancer Mother , age 93 Squamous cell carcinoma Other No family history of adverse response to anesthesia Social History (Updated 05/09/24 @ 09:26 by Anselmo Nieto MD) Smoking Status: Never smoker Second Hand Exposure: No; Do You Dip or Chew Tobacco: No; Hx Alcohol Use: No Hx Substance Use: No Preferred Language: Polish Communication Ability: Effective Visual Supervisor Required: No Beliefs That Will Affect Care: None marital status: Current Living Situation: Spouse current occupational status: employed 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 Feels Safe at Home: Yes Assistive Devices: None Review of Systems Constitutional: no fever, no fatigue and no weakness Eyes: no diplopia, no eye pain and no worsening vision Ear, Nose, Mouth, Throat: no ear pain, no tinnitus, no hearing loss, no dizziness, no snoring, no hoarseness and no dysphagia Respiratory: no cough and no dyspnea Cardiovascular: no chest pain, no palpitations and no lightheadedness Gastrointestinal: no abdominal pain, no nausea and no vomiting Musculoskeletal: no back pain, no neck pain, no radicular pain, no joint pain and no myalgia Integumentary: no rash and no lesions Neurologic: no gait abnormality, no localized weakness, no generalized weakness, no tingling, no numbness, no tremor(s), no abnormal movements, no headache(s), no abnormal speech, no confusion and no memory loss Psychiatric: no depression, no irritability, no anxiety, no difficulty concentrating, no confusion and no hallucinations Endocrine: no fatigue and no flushing Hematologic / Lymphatic: no easy bleeding and no easy bruising Allergy / Immunological: no urticaria and no problem reported Exam (Neuro) Physical Exam: The patient is right-handed. The patient is awake, alert, and attentive. Speech is normal without any aphasia or dysarthria. Mentation and thought processes are intact, with full orientation and normal fund of knowledge. Mood and affect are normal and appropriate. Appearance and grooming are normal. Short and long-term memory are intact to conversation. Pupils are 4 mm bilaterally and reactive to light. Extraocular eye muscles are intact without nystagmus. Visual acuity and visual nayak seem normal grossly to confrontation. There are no deficits to sensation in the face in all 3 distributions of the fifth cranial nerve bilaterally. Corneal reflexes are positive bilaterally. Fac ial strength and symmetry was normal bilaterally. Hearing seems intact grossly to voice and finger rub bilaterally. Palate moves well without asymmetry. There is normal sternocleidomastoid and trapezius strength bilaterally. Tongue is midline with good strength bilaterally. Neck has a full range of motion without discomfort. There are no cervical bruits bilaterally. There are no cranial or ocular bruits. Heart is without murmur. There is a regular rhythm and rate. Cervical, thoracic, and lumbar spine are nontender to palpation. Gait is narrow based, with good arm swing, turns, and stance. Balance is normal eyes open or closed. With outstretched arms there is no drift. There are no resting, postural, or action tremors. There is no ataxia with finger to nose testing. There is good fa cility in the hands. No other abnormal involuntary movements are noted. Motor strength is 5/5 diffusely in the arms bilaterally including deltoids, biceps, triceps, brachioradialis, wrist flexors and extensors, animal sitter, and intrinsic hand muscles. Motor strength is 5/5 diffusely in the legs bilaterally including hip flexors, quadriceps, hamstrings, gastrocnemius, tibialis anterior, tibialis posterior, and Peroneii muscles bilaterally. Toe extensors are normal and there is good bulk in the extensor digitorum brevis muscles bilaterally. The limbs have good tone without rigidity or spasticity. There is no atrophy noted in the muscles. Muscle bulk is normal, there is no tenderness to palpation, no myotonia to percussion, and no fasciculations seen. Sensory examination is intact to touch and pin throughout all 4 limbs diffusely. Reflexes are 2/4 in the biceps, triceps, brachioradialis, quadriceps, and Achilles tendons bilaterally. Toes are downgoing with plantar stimulation bilaterally. Peripheral pulses are present and of normal quality distally in all 4 limbs. There is no peripheral edema noted in the limbs. Results & Data Vital Signs (Past 12 Hours) Vital Signs Temp Pulse Resp BP Pulse Ox O2 Del Method 05/09/24 07:59 36.6 C 72 16 123/66 94 Room Air 05/09/24 03:09 36.9 C 75 18 119/70 95 Room Air 05/08/24 22:56 36.8 C 87 18 114/68 95 Room Air PG Care Time/CCT Total # of Minutes Spent Total Time Spent with Patient: Total time spent is greater than 50% in coordination of care (as documented) at patient's floor/unit and/or counseling patient: Coding Level of Care Code 41133 INT INP/OBS CARE 3/75MIN Diagnoses Acute CVA (cerebrovascular accident) I63.9 Carotid arterial disease I77.9 Carotid artery disease type: unspecified Laterality: unspecified laterality Moderate to severe aortic stenosis I35.0 Time Spent (min) 100 (2) Carotid arterial disease Carotid artery disease type: unspecified Laterality: unspecified laterality Qualified Code(s): I77.9 - Disorder of arteries and arterioles, unspecified
[2024-05-09 09:43] LABS: Estimated Average Glucose 117 mg/dl; Hemoglobin A1C 5.7 % (4.5-5.6)
--- NOTE | 2024-05-09 14:29 | Pharmacy Report ---
- Date of Service May 09, 2024 - Pharmacy CVA/TIA Medication Review Medications to Prevent Stroke handout has been added to the patients discharge packet. Antiplatelet(s) * Aspirin + Plavix Cholesterol * High intensity statin: atorvastatin 40 mg daily DVT Prophylaxis * Enoxaparin SQ Therapeutic Anticoagulation * No history of Afib/Aflutter noted Type 2 Diabetes * Patient does not have T2DM
--- NOTE | 2024-05-09 15:46 | Discharge Summary ---
Date of Service May 09, 2024 Admission HPI Per Admitting Provider 78 year old male with PMH of Dysphagia, Hypothyroidism, Tertiary hyperparathyroidism, and known Severe aortic stenosis that presented to our facility with numbness over his left side face, and his left arm. He refers going to bed at 11 pm last night feeling normal. He woke up at 3 am to use the bathroom and felt numbness on his left side. He denied any weakness in the arms or legs. He went to [facility] this am where he was then sent to our Ed for further evaluation. at the moment of my evaluation he was found alert and oriented in NAD, at bedside. He refers the numbness on his left face is still present but had improved. No weakness, numbness, or tingling sensation on his extremities. No gait disturbances. No He denied any headaches, SOB, visual disturbances, chest pain or any other symptoms. Dale refers he has a history of severe aortic stenosis which is being monitor by [facility] for possible replacement. No plan for now, current plan iis continue to monitoring symptoms. ED course: CT head: No hemorrhages. Head CTA:No significant stenosis, occlusion, or aneurysm within the [place]. Neck CTA: significant stenosis of the right internal carotid artery and occlusion of the right origin of the right vertebral artery. CXR: negative for acute pathology. Labs unremarkable Admission Exam Per Admitting Provider Constitutional: WD/WN, vitals as above Eyes: PERRL, conjunctivae normal, anicteric sclerae ENMT: external ear and nose normal, oropharynx normal Respiratory: normal respiratory effort, lungs clear to auscultation Cardiovascular: RRR, no murmur, no edema Gastrointestinal (Abdomen): normal bowel sounds, soft, nontender, no hepatosplenomegaly Musculoskeletal: no cyanosis or clubbing, extremities motor strength 5/5 Neurologic: PERRL, EOMI, accommodation nl, no face palsy, no dysarthria Speech / Cognition: normal speech Cranial Nerves: sense of smell intact, PERRL, normal accommodation, normal facial strength, normal hearing, able to rotate head bilaterally and able to elevate shoulders bilaterally Left sided face with decreased sensation on light touch Principal Diagnosis Acute CVA with RCA Stenosis and Embolic Punctate Infarct in right frontal region Discharge Exam Constitutional WD/WN, vitals as above Eyes PERRL, conjunctivae normal, anicteric sclerae ENMT external ear and nose normal, oropharynx normal Respiratory normal respiratory effort, lungs clear to auscultation Cardiovascular RRR, no murmur, no edema Gastrointestinal (Abdomen) normal bowel sounds, soft, nontender, no hepatosplenomegaly Musculoskeletal no cyanosis or clubbing, extremities motor strength 5/5 Neurologic PERRL, EOMI, accommodation nl, no face palsy, no dysarthria Speech / Cognition: normal speech Cranial Nerves: sense of smell intact, PERRL, normal accommodation, normal facial strength, normal hearing, able to rotate head bilaterally and able to elevate shoulders bilaterally Discharge Data Allergies Allergy/AdvReac Type Severity Reaction Status Date / Time No Known Allergies Allergy Verified 05/08/24 14:13 Consultations 05/08/24 14:13 ED Decision to Admit Stat 05/08/24 20:09 Consult Neurology Routine Ordered Studies 05/08/24 11:11 CT angio head w con Stat CT angio neck with con Stat CT head/brain wo con Stat 05/08/24 16:59 MR brain wo/w con Routine Hospital Course (1) Acute CVA (cerebrovascular accident): (2) Moderate to severe aortic stenosis: (3) Dysphagia: (4) Tertiary hyperparathyroidism: (5) Hypothyroidism: (6) HTN (hypertension): Plan 1. Acute CVA, likely embolic from Stenosed RCA Clinical+ Image guidry: Acute CVA Physical examination : NAD for focal deficit CT scan/CT angiography of the head was normal. CT angiography of the neck: Significant stenosis of the right internal carotid artery (extensive atherosclerosis). Right vertebral at the origin as well as a 75% stenosis at the origin of the right internal carotid artery with a length of approximately 1 cm. MRI of the brain: Several punctate right frontal distribution acute strokes consistent with emboli Old small vessel ischemic disease. Neuro consult: -DAPT 81 mg aspirin +75 mg clopidogrel daily. -Atorvastatin 40 mg daily. -Vascular surgery consult regarding internal carotid artery stenosis. -F/U 3-4 weeks in Neurology 2.Aortic artery stenosis: Echo: Moderate to severe valcular Mod concentric LVH Left ventricular systolic function Normal grade 1 diastolic dysfxn Not Symptomatic at present As per cardiology in regular F/U 3.Hyperparathyroidism Under control; calcium 8.9 Continue calcitriol and vitamin D 4. 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 Recommending lisinopril 5 mg PO OD to start with. Home BP measurement 5-10 times /week F/U with PCP with BP chart and will titrate BP to goal. Total Time Total Time Spent Total Time Spent (In Minutes): <30 Discharge Plan Discharge Items Patient Disposition: Home - Self-Care Reason For Visit: TIA Discharge Diagnosis: Acute CVA, Ischemic d/t embolism from caortid Activity: Per Instructions section Non-emergency contact: Primary Care Provider Call non-emergency contact if: your symptoms worsen Follow-up/Referrals: Hakan Marin [Primary Care Provider] - Diet: Low Sodium (2gm) Addtl Attending Provider Instructions: - Acute CVA, Ischemic d/t embolism from carotid artery , chronic hypertension - F/U with PCP in 1week - Neurology F/U in 3-4 weeks - Vascular surgery F/U for carotid artery stenosis. Pending Studies at Discharge: No Stand-Alone Forms: My triptap, Smoking Cessation, Medications to Prevent Stroke Medications and DC Order Prescriptions: New atorvastatin 40 mg Tablet 40 mg PO QAM 90 Days Qty: 90 0RF lisinopril 5 mg tablet 5 mg PO DAILY 30 Days Qty: 30 0RF clopidogrel 75 mg tablet 75 mg PO DAILY 30 Days Qty: 30 0RF Continued aspirin 81 mg tablet,chewable 1 tab PO QAM Centrum Silver 0.4-300-250 mg-mcg-mcg tablet 1 tab PO QAM glucosamine-chondroitin 250-200 mg tablet 1 tab PO QAM levothyroxine 75 mcg tablet 75 mcg PO QAM Qty: 90 1RF cefdinir 300 mg capsule 300 mg PO Q12H Rx Instructions: Start Date 04/28/24 x10 day supply/ As of 05/08/24 pt has 2 doses left omega-3 fatty acids Capsule 1 cap PO QAM Patient Comments: omega xl calcitriol [Rocaltrol] 0.25 mcg capsule 0.25 mcg PO QAM Discharge Orders: Discharge Order (Routine); Ordered 05/09/24 Ordered By: Kathryn Cornejo/Other Patient Handouts: Atorvastatin Oral Tablet, Lisinopril Oral Tablet, Aortic Stenosis, Hypertension Stroke Link, Stroke Self Care After Admission Data Admit Date/Time: 05/08/24 14:58 Attending Provider: Edwin Bardales Admit Provider: Clarence Obrien Primary Care Provider: Hakan Marin Other Providers: Bryan Gonzales; Anselmo Nieto Other Interventions: Discharge Summary Assessment (RN) Last Done: 05/09/24 17:56 Supervising Physician Co-Signing Physician Notes I personally examined the patient and verified all gregory points of history and exam, discussed case, and agree with decision making with Dr Wu feeling better walking well and would like to go home. Vitals noted, in general he is awake and alert pleasant no distress. HEENT normocephalic atraumatic mucous membranes moist. Breathing unlabored no accessory muscle use good effort. Skin without rashes pallor or icterus. Neuro without notable focal deficits and his gait is brisk and stable. Labs and diagnostics noted. CVAsymptomatically improving quite nicely. Safe/stable for home. Almost certainly carotid mediated. Aspirin plus Plavix for 3 weeks then Plavix alone, Lipitor 40 mg, outpatient vascular surgery evaluation. Given his blood pressure is running significantly high, as well as running high on outpatient reviewseems to have hypertension beyond simply autoregulation/permissive hypertension in this contextbut also at the same time definitely do not want to overtreatfor now 5 mg lisinopril daily, follow blood pressure frequently at home and then titrate as needed. Basic metabolic panel 1-2 weeks as an outpatient. safe/stable for home, otherwise as above Resident Activity Tracking Resident Involvement: Resident Care Provided Care Provided: Adult Hospital Medicine
[2024-05-09 16:09] VITALS: BP 135/65; TEMP 98.4; O2SAT 97
[2024-05-09] MEDS ORDERED: STROKE PATIENT DISCHARGE STA (17:47)
[2024-05-09 17:58] VITALS: PULSE 75
--- NOTE | 2024-05-09 18:34 | Billing Data ---
Date of Service May 09, 2024 Coding Level of Care Code 59245 IN/OBS DISCH 30 MIN/LESS
--- NOTE | 2024-05-11 10:34 | Pharmacy Report ---
Pharmacist Stroke Counseling - Date of Service May 11, 2024 - Scope: Pharmacy has been consulted to provide medication discharge counseling for this patient admitted with [ischemic stroke] [hemorrhagic stroke] [transient ischemic attack] as per the Pharmacist Discharge Counseling for Stroke Patients Ella col. - Medications on Discharge: Home Medications Medication Instructions Recorded Confirmed aspirin 81 mg chewable tablet 1 tab PO QAM 12/06/19 05/08/24 glucosamine-chondroitin 250 mg-200 1 tab PO QAM 12/06/19 05/08/24 mg tablet qszgnwwi-kbk-gnucd acid 0.4 1 tab PO QAM 12/06/19 05/08/24 mg-lycopene 300 mcg-lutein 250 mcg tablet (Centrum Silver) omega-3 fatty acids 1 cap PO QAM 12/10/23 05/08/24 calcitriol 0.25 mcg capsule 0.25 mcg PO QAM 12/24/23 05/08/24 (Rocaltrol) cefdinir 300 mg capsule 300 mg PO Q12H 05/08/24 05/08/24 New Rx's Medication Instructions Recorded levothyroxine 75 mcg tablet 75 mcg PO QAM #90 tabs 02/04/24 atorvastatin 40 mg tablet 40 mg PO QAM 3 months #90 tabs 05/09/24 clopidogrel 75 mg tablet 75 mg PO DAILY 30 days #30 tabs 05/09/24 lisinopril 5 mg tablet 5 mg PO DAILY 1 month #30 tabs 05/09/24 - Action: The above medications, specifically ones for stroke treatment/prophylaxis, have been reviewed in detail with the patient and/or patient bilingual sales representative(s) prior to discharge. This includes indication, common adverse reactions, drug interactions, and medication administration. Medication counseling has been employed using the teach-back method to ensure understanding. - Outcome: The patient and/or patient bilingual sales representative(s) have demonstrated understanding of the medications. Additional comments: Spoke with Dale regarding medication changes since his admission, Plavix, atorvastatin, and lisinopril. He has picked up the medications from the pharmacy and begun taking them. Reviewed side effects of new medications. Dale stated he has been having some night sweats and feeling feverish. Reviewed new medications, not likely to be the cause. He has concern for a potential UTI. Stated that his PCP appointment was on Saturday, recommended seeking urgent care before then if he gets worse with a high fever or intolerable pain. He asked about taking acetaminophen vs ibuprofen and if they interact with the new medications. Stated that acetaminophen would be preferred since ibuprofen can increase bleeding risk with his Plavix/aspirin. All questions answered. Thank you for allowing pharmacy to be involved in the care of this patient. Please call [phone] with any additional questions
== END 2024-05-09 18:33 | disposition home or self-care (01) ==
LOC: EDINP 10:21 → ED 10:21 → SUATTDRO 14:58 → EDINP 16:30 → 4W 18:41

== ENCOUNTER 2024-05-16 18:24 | Observation (INO) ==
--- OUTSIDE RECORDS SUMMARY | 2024-05-16 18:29 | External Medical Summary | Continuity of Care Document ---
Author Name Unknown Organization [facility] Address [address], [place] [id number] Care Team Providers Care Patient Access Director Name Role Phone Duc Marin III Primary Care Physician [phone] [id number] Date(s): 05/12/24 - 05/12/24 [facility] [address], [address] [place] [address] [phone] Discharge Disposition: Home or Self Care Attending Physician: RONAL Alicea Sarah A Referring Physician: RONAL Alicea Sarah A Allergies, Adverse Reactions, Alerts No Known Medication Allergies Medications aspirin 81 mg oral delayed release tablet Start: 03/10/21 3:34:00 PM EDT, 1 tab, PO, Daily Start Date: 03/10/21 Status: Ordered atorvastatin 40 mg oral tablet TAKE 1 TABLET BY MOUTH IN THE MORNING FOR 3 MONTHS. Start Date: 05/14/24 Status: Ordered calcitriol 0.5 mcg oral capsule Start: 03/10/21 3:35:00 PM EDT, 1 cap, PO, Daily Start Date: 03/10/21 Status: Ordered ciprofloxacin 500 mg oral tablet TAKE 1 TABLET BY MOUTH EVERY 12 HOURS FOR 3 DAYS Start Date: 05/14/24 Status: Ordered clopidogrel 75 mg oral tablet TAKE 1 TABLET BY MOUTH EVERY DAY Start Date: 05/14/24 Status: Ordered levothyroxine 75 mcg (0.075 mg) oral tablet Start: 03/10/21 3:35:00 PM EDT, 1 tab, PO, Daily Start Date: 03/10/21 Status: Ordered lisinopril 5 mg oral tablet TAKE 1 TABLET BY MOUTH EVERY DAY Start Date: 05/14/24 Status: Ordered multivitamin Start: 03/10/21 3:34:00 PM EDT, 1 tab, PO, Daily Start Date: 03/10/21 Status: Ordered Gilmore-3 oral capsule Start: 03/10/21 3:38:00 PM EDT, See Instructions, Note to Pharmacy: take 1 capsule PO daily Start Date: 03/10/21 Status: Ordered Osteo Bi-Flex Start: 03/10/21 3:34:00 PM EDT, See Instructions, Note to Pharmacy: take1 tab PO daily Start Date: 03/10/21 Status: Ordered Vitamin D3 Start: 03/10/21 3:37:00 PM EDT, 5,000 Int_Unit =, PO, Daily Start Date: 03/10/21 Status: Ordered Problem List Condition Confirmation Course Effective Dates Status Health St atus Informant Aortic stenosis Confirmed Active Bilateral carotid artery stenosis Confirmed Active Burning sensation of feet Confirmed Active Pulmonary HTN Confirmed Active Venous reflux Confirmed Active Complicated varicose veins Confirmed Active Procedures Procedure Date Related Diagnosis Body Site Status Colonoscopy 1 03/17/24 Completed EGD - esophagogastroduodenoscopy 2 03/17/24 Completed Carpal tunnel Completed Cataract 3 Completed Cholecystectomy 4 Complet ed Meniscus 5 Completed 1The rectum, sigmoid colon, descending colon, splenic flexure, transverse colon hepatic flexure, ascending colon and cecum are normal. No specimens collected. No repeat colo d/t age 2No endoscopic esophageal abnormality to explain pt's dysphagia. Esophagus dilated. Normal stomach and examined duodenum No specimens collected. 3bilateral cataract 4approx 1 years ago 5meniscal sx approx 30+ years ago Social History Social History Type Response Smoking Status Never smoked cigaret mariano Sex Male Sex Representation Male (finding) Patient Care team information Care Team Personnel Name: Tania SANCHEZ MD, Duc [place] Position: Referring Member Role: Primary Care Provider Address: [address] [address] [place] Name: GUILLERMINA Morgan Lynn Position: Physician Cadmium Plater Exempt - Vasc Surg Member Role: Lifetime Relationship [address]: [address] [place] [id number] [place]
--- NOTE | 2024-05-16 18:43 | Emergency Department Note ---
Impression & Plan TIA (transient ischemic attack), Arm weakness, Anemia ED Provider Note NAME: KIRK GUERRERO AGE: 78 SEX: M : 1945 ARRIVES VIA: Walk-In INFORMANT: Patient ED PROVIDER(S): Edwin Loyd DO CHIEF COMPLAINT: Left arm weakness numbness HPI: Patient is an 86-year-old male who presents to the ER with recent CVA for worsening numbness in the left arm in combination with weakness. He notes weakness with flexion and extension at the elbow as well as movement of the digits. He denies any headache or change in vision. No chest pain or shortness of breath. No nausea, vomiting, or diarrhea. No dysuria, urgency, or frequency. No other exacerbating or remitting factors. He does take Plavix. ADDITIONAL HISTORY OBTAINED: Per HPI Chronic Medical/Social Conditions Affecting Care: Per HPI PAST MEDICAL HISTORY:See Below PAST SURGICAL HISTORY:See Below FAMILY HISTORY:See Below SOCIAL HISTORY:See Below HOME MEDICATIONS:See Below ALLERGIES:See Below VITALS:See Below PHYSICAL EXAMINATION: GENERAL: Sitting up in bed, alert, well appearing, well nourished, no distress, non-toxic EYE EXAM: normal conjunctiva. PERRL and EOM's intact. OROPHARYNX: no exudate, no erythema, lips, buccal mucosa, and tongue normal and mucous membranes are moist NECK: supple, no nuchal rigidity, no adenopathy, non-tender LUNGS: Clear to auscultation. Normal chest wall mechanics HEART: no murmurs, S1 normal and S2 normal ABDOMEN: abdomen soft, non-tender, normo-active bowel sounds, no masses, no rebound or guarding. BACK: Back is symmetrical on inspection and there is no deformity, no midline tenderness, no CVA tenderness. SKIN: no rashes and no bruising UPPER EXTREMITIES: upper extremities are grossly normal. LOWER EXTREMITIES: No pitting edema. NEURO EXAM: Normal sensorium, cranial nerves II-XII intact, normal speech, no weakness of arms, no weakness of legs. No drift. Finger to nose intact. Gross sensation intact. MEDICAL DECISION MAKING: Patient is an 78-year-old male who presents ER for above-stated complaint. IV was established medicos obtained. Labs show no significant leukocytosis. Mild anemia 12. INR was unremarkable. BMP with a slightly elevated glucose at 137. LFTs bilirubin and troponin was negative. With the recent stroke and weakness of the left upper extremity a stroke alert was called. Not a TNK candidate with recent stroke. External records were reviewed on last admission 2 weeks ago which showed acute CVA with RCA stenosis and embolic right frontal lobe infarct. Patient was discussed with the hospitalist for further evaluation management treatment. Consults/Care Managements Discussions: Per [facility] Triage Nursing notes reviewed. Limited review of prior medical records performed Vital Signs: reviewed and remarkable for HTN Differential diagnosis: Differential Diagnosis includes but is not limited to ischemic Stroke, hemorrhagic stroke, bells palsy, mass, neoplasm, migraine headache, seizure, subarachnoid hemorrhage, TIA, and transient global amnesia. ER treatment provided: See below Diagnostics interpreted by me include EKG and cardiac monitoring as listed below: -Cardiac Monitoring: An order was placed for continuous cardiac monitoring. The monitor shows a rate of 70 with sinus rhythm. -ECG: Sinus rhythm rate of 79 Right bundle branch block No PVCs T wave inversion in V3 QTc 454 -Laboratory studies:Interpreted by me as stated above in MDM and shown below. Imaging studies: Xrays: As interpreted by me: Portable AP upright 1 view of the chest shows no focal Lutrate CTs show: CT angios of the head and neck are unchanged Procedures:none Critical Care: None Past Med/Surg History Problem List (Updated 05/17/24 @ 00:37 by Edwin Loyd DO) Anemia (Acute) Arm weakness (Acute) TIA (transient ischemic attack) (Acute) History of CVA (cerebrovascular accident) (Acute) Facial numbness (Acute) Encounter for pre-operative examination Urinary retention Urethral stricture Hypercalciuria (Acute) Vitamin D deficiency (Acute) Medical History History of hypertension Per records History of BPH History of CVA (cerebrovascular accident) 05/08/24, [facility] admission, residual left sided head numbness Found to have significant carotid disease (reason for upcoming surgery) History of dysphagia History of Holter monitoring Placed by [facility] cardio 05/12/24 given recent CVA History of bladder stone Carotid arterial disease Neck CTA 05/08/24: Likely chronic hemodynamically significant ANASTASIYA stenosis. 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[place] [facility] Hypothyroidism Chronic prostatitis Acid reflux Hx, no current issues History of colon polyps Urinary problem in male Self cath approximately 2 times per week History of kidney stones Tricuspid regurgitation Echo 04/2024: Mild TR Pulmonary hypertension "Mild" per records Aortic stenosis Echo 05/09/24: Moderate to severe aortic stenosis (MERY 0.75cm2, MG 23.6mmhg) Temporomandibular joint disorder Infrequent locking History of COVID-19 (08/2020) Cough > resolved Chronic sinusitis Surgical History H/O knee surgery Right meniscus repair History of bilateral cataract extraction History of carpal tunnel surgery R/L History of colonoscopy (03/2024) History of esophageal dilatation History of esophagogastroduodenoscopy (EGD) (03/2024) History of tooth extraction Several, "only 6 teeth" remaining History of urologic surgery Unknown details Hx of cholecystectomy (2003) Family History Brother Kidney stone Father , age 92 Cardiovascular disease Family history of prostate problems Cardiac disorder Stroke Sister Cancer Mother , age 93 Squamous cell carcinoma Other No family history of adverse response to anesthesia Social History Smoking Status: Never smoker Second Hand Exposure: No; Do You Dip or Chew Tobacco: No; Hx Alcohol Use: No Hx Substance Use: No Preferred Language: Swedish Communication Ability: Effective Sales Representative Advertising Required: No Beliefs That Will Affect Care: None marital status: Current Living Situation: Spouse current occupational status: employed 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 Feels Safe at Home: Yes Safety Concerns: Feels Safe At This Time Assistive Devices: Denture - Upper, Denture - Lower and Glasses Allergies Allergies Allergy/AdvReac Type Severity Reaction Status Date / Time No Known Allergies Allergy Verified 05/16/24 20:17 Home Meds Home Medications Medication Instructions Recorded Confirmed aspirin 81 mg chewable tablet 1 tab PO QAM 12/06/19 05/16/24 glucosamine-chondroitin 250 mg-200 1 tab PO QAM 12/06/19 05/16/24 mg tablet [id number]-tpi-[id number] acid 0.4 1 tab PO QAM 12/06/19 05/16/24 mg-lycopene 300 mcg-lutein 250 mcg tablet (Centrum Silver) calcitriol 0.25 mcg capsule 0.25 mcg PO QAM 12/24/23 05/16/24 (Rocaltrol) clopidogrel 75 mg tablet 75 mg PO QAM 05/14/24 05/16/24 lisinopril 5 mg tablet 5 mg PO QAM 05/14/24 05/16/24 omega-3 fatty acids 1,000 mg 1,000 mg PO QAM 05/14/24 05/16/24 capsule Previous Rx's Medication Instructions Recorded levothyroxine 75 mcg tablet 75 mcg PO QAM #90 tabs 02/04/24 atorvastatin 40 mg tablet 40 mg PO QAM 3 months #90 tabs 05/09/24 Results & Data (ED) Vital Signs Vital Signs - 24 hr 05/16/24 18:28 05/16/24 19:00 05/16/24 19:00 Temperature 36.7 C Temperature Source Temporal Artery Scan Pulse Rate 83 81 79 Pulse Rate from SpO2 Sensor 79 Respiratory Rate 17 20 Respiratory Effort / Characteristics Non-Labored Respiratory Depth Normal Blood Pressure 152/72 H 144/71 H Blood Pressure Mean 98 95 Pulse Oximetry 96 97 Oxygen Delivery Method Room Air Room Air Sepsis Recent Fever Within 48 Hours No Sepsis New/Unexplained Change in Mental Status No Sepsis Action Taken by Nursing No Action Required 05/16/24 19:30 05/16/24 19:51 05/16/24 20:00 Temperature Temperature Source Pulse Rate 75 73 72 Pulse Rate from SpO2 Sensor 72 73 72 Respiratory Rate 19 22 19 Respiratory Effort / Characteristics Respiratory Depth Blood Pressure 122/67 Blood Pressure Mean 89 Pulse Oximetry 96 97 97 Oxygen Delivery Method Room Air Room Air Sepsis Recent Fever Within 48 Hours Sepsis New/Unexplained Change in Mental Status Sepsis Action Taken by Nursing 05/16/24 20:00 05/16/24 20:00 Temperature Temperature Source Pulse Rate Pulse Rate from SpO2 Sensor Respiratory Rate Respiratory Effort / Characteristics Respiratory Depth Blood Pressure 123/62 123/62 Blood Pressure Mean 91 91 Pulse Oximetry Oxygen Delivery Method Sepsis Recent Fever Within 48 Hours Sepsis New/Unexplained Change in Mental Status Sepsis Action Taken by Nursing Laboratory Data 05/16/24 18:45 05/16/24 18:45 Lab Results 05/16/24 05/16/24 05/16/24 Range/Units 18:44 18:45 18:51 WBC 6.60 (4.8-10.8) K/ul RBC 4.13 L (4.70-6.10) M/uL Hgb 12.0 L (14.0-18.0) g/dl POC Hgb 12.2 L (14.0-18.0) g/dl Hct 37.2 L (42.0-52.0) % POC Hct 36 L (42-52) % MCV 90.1 (80.0-100.0) fL MCH 29.1 (25.0-34.0) pg MCHC 32.3 (32.0-36.0) g/dL RDW Std Deviation 42.7 (36.4-46.3) fL RDW Coeff of Jayleen 13.0 (11.5-14.5) % Plt Count 329 (130-400) K/uL MPV 9.1 L (9.4-12.4) fL Immature Gran % (Auto) 0.3 % Neut % (Auto) 54.7 % Lymph % (Auto) 30.6 % [place] % (Auto) 7.4 % Eos % (Auto) 5.3 % Baso % (Auto) 1.7 % Neut # (Auto) 3.61 (1.40-6.50) K/uL Lymph # (Auto) 2.02 (1.20-3.40) K/uL [place] # (Auto) 0.49 (0.11-0.59) K/uL Eos # (Auto) 0.35 (0.00-0.50) K/uL Baso # (Auto) 0.11 (0.00-0.20) K/uL Immature Gran # (Auto) 0.02 (0.01-0.20) K/uL PT 11.3 (9.0-12.0) Seconds INR 1.0 (0.9-1.1) APTT 27 (21-31) Seconds PTT Ratio 1.0 POC Sodium 142 (135-144) mmol/L Sodium 140 (136-145) mmol/L POC Potassium 4.1 (3.3-5.0) mmol/L Potassium 4.1 (3.5-5.1) mmol/L POC Chloride 105 (101-112) mmol/L Chloride 106 (98-107) mmol/L Carbon Dioxide 29 (21-32) mmol/L POC Total CO2 25 (24-31) mmol/L Anion Gap 5 (3-11) POC Anion Gap 17.0 (16-25) mmol/L POC BUN 22 H (7-18) mg/dl BUN 26 H (6-23) mg/dl Creatinine 0.75 (0.6-1.4) mg/dl POC Creatinine 0.8 (0.6-1.3) mg/dl Est Cr Clr Drug Dosing 78.6 ml/min Est GFR ( Amer) 100.4 ml/min Est GFR (Non-Af Amer) 86.6 ml/min BUN/Creatinine Ratio 34.7 H (10-20) Glucose 123 H (70-99(Fasting)) mg/dl POC Glucose 137 H (70-99) mg/dl POC Glucose (other) 119 H (70-99) mg/dl Calcium 9.1 (8.6-10.3) mg/dl POC Ioniz Calcium Amada 1.25 (1.12-1.32) mmol/l Magnesium 1.8 (1.7-2.4) mg/dl Total Bilirubin 0.3 (0.2-1.0) mg/dl AST 17 (13-39) U/L ALT 26 (7-52) U/L Alkaline Phosphatase 65 (34-104) U/L Troponin I High Sens 3.7 (0-20) pg/ml Total Protein 6.9 (6.0-8.3) gm/dl Albumin 3.6 (3.4-5.0) gm/dl Globulin 3.3 (2.5-4.0) gm/dl Albumin/Globulin Ratio 1.1 (0.9-2) Administered Medications Discontinued Medications Ioversol (Optiray 320 125ml) 120 ml IV ONCE ONE Stop: 05/16/24 18:50 Last Admin: 05/16/24 18:51 Dose: 120 ml Documented By: EDK Imaging Data Radiologist's Impression: Chest X-Ray 05/16/24 18:41 XR chest 1V portable CLINICAL HISTORY: neuro deficit, acute stroke suspected COMPARISON STUDY: Chest CT November 17, 2023. Chest radiograph May 08, 2024. FINDINGS: Lung volumes are normal. A small left basilar airspace opacity has developed. There is no pneumothorax or pleural effusion. Cardiac size is normal. Mediastinal contours are normal. There is no evidence for pulmonary edema. IMPRESSION: Interval development of a small left basilar opacity. This favors atelectasis. No definite acute cardiopulmonary findings. ACT 112: Negative or not required by law. Electronically signed by: Justin Sheridan M.D. 05/16/2024 7:[address] 05/16/24 18:41 CT OF THE HEAD WITHOUT CONTRAST CLINICAL HISTORY: neuro deficit, acute stroke suspected COMPARISON STUDY: Head CT May 14, 2024. MRI of the brain May 08, 2024. TECHNIQUE: Helical axial images of the head were obtained without IV contrast. Automated exposure control was utilized for the study. A dose lowering technique was utilized adhering to the principles of ALARA. FINDINGS: No acute intracranial hemorrhage, midline shift or mass effect is present. The ventricular system is unremarkable. The basal cisterns are patent. No extra-axial collections are present. There are no findings to suggest acute dural sinus thrombosis or acute territorial infarct. No significant calvarial abnormalities are present. Visualized portions of the sinuses and mastoid air cells are clear. IMPRESSION: No acute intracranial findings. ACT 112: Negative or not required by law. Electronically signed by: Justin Sheridan M.D. 05/16/2024 6:55 PM Head CTA 05/16/24 18:41 CTA ANGIOGRAPHY OF THE HEAD CLINICAL HISTORY: neuro deficit, acute stroke suspected COMPARISON STUDY: CTA of the head May 14, 2024. TECHNIQUE: Helical axial images of the head were obtained following uneventful intravenous administration of 120 cc of Optiray. Sagittal and coronal reconstructions were viewed as well as maximal intensity projections on an independent 3-D workstation. Automated exposure control was utilized for the study. A dose lowering technique was utilized adhering to the principles of ALARA. FINDINGS: No acute intracranial hemorrhage, midline shift or mass effect is present. Ventricular system is normal. Basal cisterns are patent. There are no extra-axial collections. There is mild plaque within the cavernous carotids without stenosis. The bilateral M1, M2, A1 and A2 segments are patent. The right vertebral artery is diminutive. This is unchanged. Basilar artery is patent. The bilateral posterior cerebral arteries are patent. No vessel occlusion is identified. Major dural sinuses are patent. IMPRESSION: No large vessel occlusion. No intracranial aneurysm. ACT 112: Negative or not required by law. Electronically signed by: Justin Sheridan M.D. 05/16/2024 7:04 PM Neck CTA 05/16/24 18:41 CT ANGIOGRAPHY OF THE NECK WITH CONTRAST CLINICAL HISTORY: neuro deficit, acute stroke suspected COMPARISON STUDY: CTA of the neck May 14, 2024. Technique: CT angiography of the carotid and vertebral arteries was obtained using Optiray and 3D reconstruction on an independent workstation. NASCET criteria was utilized. Automated exposure control was utilized for the study. A dose lowering technique was utilized adhering to the principles of ALARA. CT DOSE: 1245.46 mGy.cm Findings: Visualized portions of the lung apices are unremarkable. There is no cervical lymphadenopathy. There are no cervical spine fractures. The left vertebral artery is dominant and patent. Occlusion of the proximal right vertebral artery is noted. The remainder of the right vertebral artery is diminutive. This is unchanged in appearance. The left common carotid artery is patent. There is moderate plaque within the proximal left internal carotid artery without stenosis. Extensive plaque within the proximal right internal carotid arteries also an 80-90% stenosis, unchanged. IMPRESSION: 1. No change in severe (80-90%) of the proximal right internal carotid artery since prior CTA. 2. Dominant, patent left vertebral artery. Occlusion at the origin of the right vertebral artery. The remainder of the right vertebral artery is diminutive, unchanged. ACT 112: Negative or not required by law. Electronically signed by: Justin Sheridan M.D. 05/16/2024 7:01 PM Discharge Plan Visit Data Chief Complaint: TIA Symptoms Stated Complaint: POSSIBLE TIA SYMPTOMS, LEFT ARM NUMBNESS ED Provider: Edwin Loyd Discharge Problem: TIA (transient ischemic attack), Arm weakness, Anemia Patient Disposition: Admitted As Inpatient Discharge Instructions Interventions: ED Discharge Assessment Last Done: 05/16/24 21:09 Discharge Problem: Anemia Qualifiers: Anemia type: unspecified type Qualified Code(s): D64.9 - Anemia, unspecified
[2024-05-16] MEDS: OPTIRAY 320 125ml IV ONE (18:51)
--- NOTE | 2024-05-16 18:57 | CT Scan Report ---
CT OF THE HEAD WITHOUT CONTRAST CLINICAL HISTORY: neuro deficit, acute stroke suspected COMPARISON STUDY: Head CT May 14, 2024. MRI of the brain May 08, 2024. TECHNIQUE: Helical axial images of the head were obtained without IV contrast. Automated exposure con trol was utilized for the study. A dose lowering technique was utilized adhering to the principles o f ALARA. FINDINGS: No acute intracranial hemorrhage, midline shift or mass effect is present. The ventricular system is unremarkable. The basal cisterns are patent. No extra-axial collections are present. There are no findings to suggest acute dural sinus thrombosis or acute territorial infarct. No significant calvarial abnormalities are present. Visualized portions of the sinuses and mastoid air cells are sonia ar. IMPRESSION: No acute intracranial findings. ACT 112: Negative or not required by law. Electronically signed by: Justin Sheridan M.D. 05/16/2024 6:55 PM
[2024-05-16 19:00] LABS: Basophils # (auto) 0.11 K/uL (0.00-0.20); Basophils % (auto) 1.7 %; Eosinophils # (auto) 0.35 K/uL (0.00-0.50); Eosinophils % (auto) 5.3 %; Hematocrit (blood only) 37.2 % (42.0-52.0); Immature Granulocytes # (auto) 0.02 K/uL (0.01-0.20); Immature Granulocytes % (auto) 0.3 %; Lymphocytes # (auto) 2.02 K/uL (1.20-3.40); Lymphocytes % (auto) 30.6 %; Mean Corpuscular Hemoglobin 29.1 pg (25.0-34.0); Mean Corpuscular Hgb Conc 32.3 g/dL (32.0-36.0); Mean Corpuscular Volume 90.1 fL (80.0-100.0); Mean Platelet Volume 9.1 fL (9.4-12.4); Monocytes # (auto) 0.49 K/uL (0.11-0.59); Monocytes % (auto) 7.4 %; Neutrophils # (auto) 3.61 K/uL (1.40-6.50); Neutrophils % (auto) 54.7 %; Platelet Count 329 K/uL (130-400); RDW Standard Deviation 42.7 fL (36.4-46.3); Red Blood Count 4.13 M/uL (4.70-6.10)
[2024-05-16 19:03] LABS: iSTAT Creatinine 0.8 mg/dl (0.6-1.3); iSTAT Hemoglobin 12.2 g/dl (14.0-18.0); iSTAT Ionized Calcium 1.25 mmol/l (1.12-1.32); iSTAT Potassium 4.1 mmol/L (3.3-5.0)
--- NOTE | 2024-05-16 19:04 | CT Scan Report ---
CT ANGIOGRAPHY OF THE NECK WITH CONTRAST CLINICAL HISTORY: neuro deficit, acute stroke suspected COMPARISON STUDY: CTA of the neck May 14, 2024. Technique: CT angiography of the carotid and vertebral arteries was obtained using Optiray and 3D rec onstruction on an independent workstation. NASCET criteria was utilized. Automated exposure control was utilized for the study. A dose lowering technique was utilized adhering to the principles of ALA RA. CT DOSE: 1245.46 mGy.cm Findings: Visualized portions of the lung apices are unremarkable. There is no cervical lymphadenopat hy. There are no cervical spine fractures. The left vertebral artery is dominant and patent. Occlusio n of the proximal right vertebral artery is noted. The remainder of the right vertebral artery is dim inutive. This is unchanged in appearance. The left common carotid artery is patent. There is moderate plaque within the proximal left internal carotid artery without stenosis. Extensive plaque within th e proximal right internal carotid arteries also an 80-90% stenosis, unchanged. IMPRESSION: 1. No change in severe (80-90%) of the proximal right internal carotid artery since prior CTA. 2. Dominant, patent left vertebral artery. Occlusion at the origin of the right vertebral artery. The remainder of the right vertebral artery is diminutive, unchanged. ACT 112: Negative or not required by law. Electronically signed by: Justin Sheridan M.D. 05/16/2024 7:01 PM
--- NOTE | 2024-05-16 19:05 | CT Scan Report ---
CTA ANGIOGRAPHY OF THE HEAD CLINICAL HISTORY: neuro deficit, acute stroke suspected COMPARISON STUDY: CTA of the head May 14, 2024. TECHNIQUE: Helical axial images of the head were obtained following uneventful intravenous administr ation of 120 cc of Optiray. Sagittal and coronal reconstructions were viewed as well as maximal inten sity projections on an independent 3-D workstation. Automated exposure control was utilized for the study. A dose lowering technique was utilized adhering to the principles of ALARA. FINDINGS: No acute intracranial hemorrhage, midline shift or mass effect is present. Ventricular syst em is normal. Basal cisterns are patent. There are no extra-axial collections. There is mild plaque w ithin the cavernous carotids without stenosis. The bilateral M1, M2, A1 and A2 segments are patent. T he right vertebral artery is diminutive. This is unchanged. Basilar artery is patent. The bilateral p osterior cerebral arteries are patent. No vessel occlusion is identified. Major dural sinuses are pat ent. IMPRESSION: No large vessel occlusion. No intracranial aneurysm. ACT 112: Negative or not required by law. Electronically signed by: Justin Sheridan M.D. 05/16/2024 7:04 PM
[2024-05-16 19:08] LABS: Partial Thromboplastin Time 27 Seconds (21-31); Prothrombin Time 11.3 Seconds (9.0-12.0)
[2024-05-16 19:17] LABS: Albumin Globulin Ratio 1.1 (0.9-2); Albumin Level 3.6 gm/dl (3.4-5.0); BUN Creatinine Ratio 34.7 (10-20); Bilirubin,Total 0.3 mg/dl (0.2-1.0); Calcium 9.1 mg/dl (8.6-10.3); Creatinine Clr Calc Pharmacy 78.6 ml/min; Est GFR (African American) 100.4 ml/min; Est GFR (Non-African American) 86.6 ml/min; Globulin 3.3 gm/dl (2.5-4.0); Magnesium 1.8 mg/dl (1.7-2.4); Potassium 4.1 mmol/L (3.5-5.1); Total Protein 6.9 gm/dl (6.0-8.3)
[2024-05-16 19:23] LABS: Troponin I High Sensitivity 3.7 pg/ml (0-20)
--- NOTE | 2024-05-16 19:43 | XRay Report ---
XR chest 1V portable CLINICAL HISTORY: neuro deficit, acute stroke suspected COMPARISON STUDY: Chest CT November 17, 2023. Chest radiograph May 08, 2024. FINDINGS: Lung volumes are normal. A small left basilar airspace opacity has developed. There is no p neumothorax or pleural effusion. Cardiac size is normal. Mediastinal contours are normal. There is no evidence for pulmonary edema. IMPRESSION: Interval development of a small left basilar opacity. This favors atelectasis. No defini te acute cardiopulmonary findings. ACT 112: Negative or not required by law. Electronically signed by: Justin Sheridan M.D. 05/16/2024 7:41 PM
--- NOTE | 2024-05-16 20:20 | History & Physical Report ---
Date of Service May 16, 2024 Assessment & Plan (1) Weakness of left upper extremity: (2) TIA (transient ischemic attack): (3) History of CVA (cerebrovascular accident): (4) HTN (hypertension): (5) Aortic stenosis: (6) Hypothyroidism: (7) Carotid arterial disease: (8) History of CVA (cerebrovascular accident): Plan Weakness of left upper extremity/TIA/history of CVA/80 to 90% proximal right ICA stenosis/occlusion origin right vertebral artery- The patient will be admitted to telemetry for serial cardiac enzymes, serial EKG's, cardiac rhythm monitoring Continue aspirin 81 mg daily and clopidogrel 75 mg daily as recommended by telestroke Hold lisinopril, and placed on IV fluids to allow blood pressure to elevate to increase cerebral perfusion Studies on 05/08, 05/14, and this evening did not show progression of underlying abnormality MRI brain held due to presence of heart monitor Consult neurology Hyperlipidemia- Continue atorvastatin Aortic stenosis- Noted on recent echo on 05/09/2024, and will not be repeated Hypothyroidism- Continue levothyroxine History of Present Illness Chief Complaint: The patient presents to the emergency department with concerns regarding worsening numbness and control of left arm due to weakness and decreased ability to flex, extend and control his arm at the elbow. Primary Care Provider: Hakan Marin The patient is an 78-year-old male with a past medical history including history of CVA, resolved facial numbness, vitamin D deficiency, hyperlipidemia, hypothyroidism, and hypertension. Workup in the emergency department on 05/08/2024, 05/14/2024, and this evening, included CT scan of head which was negative, CTA head which was negative, and CTA neck which showed no change in the 80 to 90% proximal right ICA narrowing, and occlusion at the origin of the right vertebral artery. The patient has a scheduled right CEA on 05/21/[address] Rucker. He reports that his symptoms of left upper extremity weakness and numbness are progressed since earlier studies. Telestroke assessment advises to continue aspirin and Plavix, and have the patient be assessed by neurology in the morning. Also to continue with the MRI brain which will be repeated this evening. The patient denies any associated dysphagia, dysarthria, vision or hearing change, headache, or any other associated neurologic issue. He denies any lower extremity weakness or numbness as well. Allergies Allergy/AdvReac Type Severity Reaction Status Date / Time No Known Allergies Allergy Verified 05/16/24 20:17 Home Medications Medication Instructions Recorded Confirmed Type aspirin 81 mg chewable tablet 1 tab PO QAM 12/06/19 05/16/24 History glucosamine-chondroitin 250 mg-200 1 tab PO QAM 12/06/19 05/16/24 History mg tablet gzlomvzt-axd-vhhun acid 0.4 1 tab PO QAM 12/06/19 05/16/24 History mg-lycopene 300 mcg-lutein 250 mcg tablet (Centrum Silver) calcitriol 0.25 mcg capsule 0.25 mcg PO QAM 12/24/23 05/16/24 History (Rocaltrol) levothyroxine 75 mcg tablet 75 mcg PO QAM #90 tabs 02/04/24 05/16/24 Rx atorvastatin 40 mg tablet 40 mg PO QAM 3 months #90 tabs 05/09/24 05/16/24 Rx clopidogrel 75 mg tablet 75 mg PO QAM 05/14/24 05/16/24 History lisinopril 5 mg tablet 5 mg PO QAM 05/14/24 05/16/24 History omega-3 fatty acids 1,000 mg 1,000 mg PO QAM 05/14/24 05/16/24 History capsule Past Med/Surg History Problem List (Updated 05/17/24 @ 02:24 by Job Salmon MD) Aortic stenosis Echo 05/09/24: Moderate to severe aortic stenosis (MERY 0.75cm2, MG 23.6mmhg) Hypothyroidism Carotid arterial disease Neck CTA 05/08/24: Likely chronic hemodynamically significant ANASTASIYA stenosis. 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 History of CVA (cerebrovascular accident) 05/08/24, [facility] admission, residual left sided head numbness Found to have significant carotid disease (reason for upcoming surgery) Weakness of left upper extremity Anemia (Acute) Arm weakness (Acute) TIA (transient ischemic attack) (Acute) History of CVA (cerebrovascular accident) (Acute) Facial numbness (Acute) Encounter for pre-operative examination Urinary retention Urethral stricture Hypercalciuria (Acute) Vitamin D deficiency (Acute) Medical History History of hypertension Per records History of BPH History of CVA (cerebrovascular accident) 05/08/24, [facility] admission, residual left sided head numbness Found to have significant carotid disease (reason for upcoming surgery) History of dysphagia History of Holter monitoring Placed by [facility] cardio 05/12/24 given recent CVA History of bladder stone Carotid arterial disease Neck CTA 05/08/24: Likely chronic hemodynamically significant ANASTASIYA stenosis. 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[facility] Hypothyroidism Chronic prostatitis Acid reflux Hx, no current issues History of colon polyps Urinary problem in male Self cath approximately 2 times per week History of kidney stones Tricuspid regurgitation Echo 04/2024: Mild TR Pulmonary hypertension "Mild" per records Aortic stenosis Echo 05/09/24: Moderate to severe aortic stenosis (MERY 0.75cm2, MG 23.6mmhg) Temporomandibular joint disorder Infrequent locking History of COVID-19 (08/2020) Cough > resolved Chronic sinusitis Surgical History H/O knee surgery Right meniscus repair History of bilateral cataract extraction History of carpal tunnel surgery R/L History of colonoscopy (03/2024) History of esophageal dilatation History of esophagogastroduodenoscopy (EGD) (03/2024) History of tooth extraction Several, "only 6 teeth" remaining History of urologic surgery Unknown details Hx of cholecystectomy (2003) Family History Brother Kidney stone Father , age 92 Cardiovascular disease Family history of prostate problems Cardiac disorder Stroke Sister Cancer Mother , age 93 Squamous cell carcinoma Other No family history of adverse response to anesthesia Social History Smoking Status: Never smoker Second Hand Exposure: No; Do You Dip or Chew Tobacco: No; Hx Alcohol Use: No Hx Substance Use: No Preferred Language: Greenlandic Communication Ability: Effective Loan Operations Specialist Required: No Beliefs That Will Affect Care: None marital status: Current Living Situation: Spouse current occupational status: employed 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 Feels Safe at Home: Yes Safety Concerns: Feels Safe At This Time Assistive Devices: Denture - Upper, Denture - Lower and Glasses Review of Systems Review of Systems: The patient denies chest pain, palpitations, shortness of breath, dyspnea on exertion, cough, lower extremity swelling, sore throat, fevers, chills, sweats, nausea, vomiting, diarrhea , constipation, abdominal pain, pelvic pain, blood in urine or stool, dysuria, urinary frequency or urgency, lightheadedness, dizziness, headache, memory loss, loss of consciousness, rash, abnormal bruising or bleeding, imbalance, focal or generalized weakness, numbness or tingling in right arm or bilateral legs, generalized arthralgias or myalgias, back or neck pain, or night sweats. The review of systems is otherwise negative other than for that already noted above, and at least 10 systems have been reviewed. Physical Exam Physical Exam: The patient is awake, alert and oriented 3, well developed and well nourished, normocephalic and atraumatic, lying in bed and in no acute distress. HEENT--PERRL, EOMI, mucous membranes and oropharynx dry. Neck--supple. No JVD. No bruits. Thyroid normal, trachea midline, no adenopathy. Heart--normal S1 and S2. No murmurs, rubs or gallops. Lungs--clear bilaterally, no respiratory distress, no accessory muscle use. Abdomen--normal bowel sounds and soft. Nontender. Nondistended, no hernias or masses, no organomegaly. Extremities--no cyanosis or clubbing. No edema. There are good distal pulses b/l. Dermatologic--normal skin turgor, normal color, no abnormal lymph nodes, no rash. Neurologic--cranial nerves II through XII grossly intact. Mild weakness to flexion and extension left upper extremity at the elbow. Mildly decreased sensation left upper extremity below the elbow Rheumatologic--normal range of motion. Psychiatric--normal affect. Results & Data Results & Data Vital Signs (Past 12 Hours) Vital Signs Temp Pulse Resp BP Pulse Ox O2 Del Method 05/16/24 19:51 73 22 97 05/16/24 19:30 75 19 122/67 96 Room Air 05/16/24 19:00 79 20 144/71 H 97 Room Air 05/16/24 19:00 81 05/16/24 18:28 36.7 C 83 17 152/72 H 96 Room Air Laboratory Results Laboratory Results WBC 6.60 K/ul (4.8-10.8) 05/16/24 18:45 RBC 4.13 M/uL (4.70-6.10) L 05/16/24 18:45 Hgb 12.0 g/dl (14.0-18.0) L 05/16/24 18:45 POC Hgb 12.2 g/dl (14.0-18.0) L 05/16/24 18:51 Hct 37.2 % (42.0-52.0) L 05/16/24 18:45 POC Hct 36 % (42-52) L 05/16/24 18:51 MCV 90.1 fL (80.0-100.0) 05/16/24 18:45 MCH 29.1 pg (25.0-34.0) 05/16/24 18:45 MCHC 32.3 g/dL (32.0-36.0) 05/16/24 18:45 RDW Std Deviation 42.7 fL (36.4-46.3) 05/16/24 18:45 RDW Coeff of Jayleen 13.0 % (11.5-14.5) 05/16/24 18:45 Plt Count 329 K/uL (130-400) 05/16/24 18:45 MPV 9.1 fL (9.4-12.4) L 05/16/24 18:45 Immature Gran % (Auto) 0.3 % 05/16/24 18:45 Neut % (Auto) 54.7 % 05/16/24 18:45 Lymph % (Auto) 30.6 % 05/16/24 18:45 Mower % (Auto) 7.4 % 05/16/24 18:45 Eos % (Auto) 5.3 % 05/16/24 18:45 Baso % (Auto) 1.7 % 05/16/24 18:45 Neut # (Auto) 3.61 K/uL (1.40-6.50) 05/16/24 18:45 Lymph # (Auto) 2.02 K/uL (1.20-3.40) 05/16/24 18:45 Mower # (Auto) 0.49 K/uL (0.11-0.59) 05/16/24 18:45 Eos # (Auto) 0.35 K/uL (0.00-0.50) 05/16/24 18:45 Baso # (Auto) 0.11 K/uL (0.00-0.20) 05/16/24 18:45 Immature Gran # (Auto) 0.02 K/uL (0.01-0.20) 05/16/24 18:45 PT 11.3 Seconds (9.0-12.0) 05/16/24 18:45 INR 1.0 (0.9-1.1) 05/16/24 18:45 APTT 27 Seconds (21-31) 05/16/24 18:45 PTT Ratio 1.0 05/16/24 18:45 POC Sodium 142 mmol/L (135-144) 05/16/24 18:51 Sodium 140 mmol/L (136-145) 05/16/24 18:45 POC Potassium 4.1 mmol/L (3.3-5.0) 05/16/24 18:51 Potassium 4.1 mmol/L (3.5-5.1) 05/16/24 18:45 POC Chloride 105 mmol/L (101-112) 05/16/24 18:51 Chloride 106 mmol/L (98-107) 05/16/24 18:45 Carbon Dioxide 29 mmol/L (21-32) 05/16/24 18:45 POC Total CO2 25 mmol/L (24-31) 05/16/24 18:51 Anion Gap 5 (3-11) 05/16/24 18:45 POC Anion Gap 17.0 mmol/L (16-25) 05/16/24 18:51 POC BUN 22 mg/dl (7-18) H 05/16/24 18:51 BUN 26 mg/dl (6-23) H 05/16/24 18:45 Creatinine 0.75 mg/dl (0.6-1.4) 05/16/24 18:45 POC Creatinine 0.8 mg/dl (0.6-1.3) 05/16/24 18:51 Est Cr Clr Drug Dosing 78.6 ml/min 05/16/24 18:45 Est GFR ( Amer) 100.4 ml/min 05/16/24 18:45 Est GFR (Non-Af Amer) 86.6 ml/min 05/16/24 18:45 BUN/Creatinine Ratio 34.7 (10-20) H 05/16/24 18:45 Glucose 123 mg/dl (70-99(Fasting)) H 05/16/24 18:45 POC Glucose 137 mg/dl (70-99) H 05/16/24 18:44 POC Glucose (other) 119 mg/dl (70-99) H 05/16/24 18:51 Calcium 9.1 mg/dl (8.6-10.3) 05/16/24 18:45 POC Ioniz Calcium Amada 1.25 mmol/l (1.12-1.32) 05/16/24 18:51 Magnesium 1.8 mg/dl (1.7-2.4) 05/16/24 18:45 Total Bilirubin 0.3 mg/dl (0.2-1.0) 05/16/24 18:45 AST 17 U/L (13-39) 05/16/24 18:45 ALT 26 U/L (7-52) 05/16/24 18:45 Alkaline Phosphatase 65 U/L (34-104) 05/16/24 18:45 Troponin I High Sens 3.7 pg/ml (0-20) 05/16/24 18:45 Total Protein 6.9 gm/dl (6.0-8.3) 05/16/24 18:45 Albumin 3.6 gm/dl (3.4-5.0) 05/16/24 18:45 Globulin 3.3 gm/dl (2.5-4.0) 05/16/24 18:45 Albumin/Globulin Ratio 1.1 (0.9-2) 05/16/24 18:45 Impressions Chest X-Ray 05/16/24 18:41 XR chest 1V portable CLINICAL HISTORY: neuro deficit, acute stroke suspected COMPARISON STUDY: Chest CT November 17, 2023. Chest radiograph May 08, 2024. FINDINGS: Lung volumes are normal. A small left basilar airspace opacity has developed. There is no pneumothorax or pleural effusion. Cardiac size is normal. Mediastinal contours are normal. There is no evidence for pulmonary edema. IMPRESSION: Interval development of a small left basilar opacity. This favors atelectasis. No definite acute cardiopulmonary findings. ACT 112: Negative or not required by law. Electronically signed by: Justin Sheridan M.D. 05/16/2024 7:[address] 05/16/24 18:41 CT OF THE HEAD WITHOUT CONTRAST CLINICAL HISTORY: neuro deficit, acute stroke suspected COMPARISON STUDY: Head CT May 14, 2024. MRI of the brain May 08, 2024. TECHNIQUE: Helical axial images of the head were obtained without IV contrast. Automated exposure control was utilized for the study. A dose lowering technique was utilized adhering to the principles of ALARA. FINDINGS: No acute intracranial hemorrhage, midline shift or mass effect is present. The ventricular system is unremarkable. The basal cisterns are patent. No extra-axial collections are present. There are no findings to suggest acute dural sinus thrombosis or acute territorial infarct. No significant calvarial abnormalities are present. Visualized portions of the sinuses and mastoid air cells are clear. IMPRESSION: No acute intracranial findings. ACT 112: Negative or not required by law. Electronically signed by: Justin Sheridan M.D. 05/16/2024 6:55 PM Head CTA 05/16/24 18:41 CTA ANGIOGRAPHY OF THE HEAD CLINICAL HISTORY: neuro deficit, acute stroke suspected COMPARISON STUDY: CTA of the head May 14, 2024. TECHNIQUE: Helical axial images of the head were obtained following uneventful intravenous administration of 120 cc of Optiray. Sagittal and coronal reconstructions were viewed as well as maximal intensity projections on an independent 3-D workstation. Automated exposure control was utilized for the study. A dose lowering technique was utilized adhering to the principles of ALARA. FINDINGS: No acute intracranial hemorrhage, midline shift or mass effect is present. Ventricular system is normal. Basal cisterns are patent. There are no extra-axial collections. There is mild plaque within the cavernous carotids without stenosis. The bilateral M1, M2, A1 and A2 segments are patent. The right vertebral artery is diminutive. This is unchanged. Basilar artery is patent. The bilateral posterior cerebral arteries are patent. No vessel occlusion is identified. Major dural sinuses are patent. IMPRESSION: No large vessel occlusion. No intracranial aneurysm. ACT 112: Negative or not required by law. Electronically signed by: Justin Sheridan M.D. 05/16/2024 7:04 PM Neck CTA 05/16/24 18:41 CT ANGIOGRAPHY OF THE NECK WITH CONTRAST CLINICAL HISTORY: neuro deficit, acute stroke suspected COMPARISON STUDY: CTA of the neck May 14, 2024. Technique: CT angiography of the carotid and vertebral arteries was obtained using Optiray and 3D reconstruction on an independent workstation. NASCET criteria was utilized. Automated exposure control was utilized for the study. A dose lowering technique was utilized adhering to the principles of ALARA. CT DOSE: 1245.46 mGy.cm Findings: Visualized portions of the lung apices are unremarkable. There is no cervical lymphadenopathy. There are no cervical spine fractures. The left vertebral artery is dominant and patent. Occlusion of the proximal right vertebral artery is noted. The remainder of the right vertebral artery is dim inutive. This is unchanged in appearance. The left common carotid artery is patent. There is moderate plaque within the proximal left internal carotid artery without stenosis. Extensive plaque within the proximal right internal carotid arteries also an 80-90% stenosis, unchanged. IMPRESSION: 1. No change in severe (80-90%) of the proximal right internal carotid artery since prior CTA. 2. Dominant, patent left vertebral artery. Occlusion at the origin of the right vertebral artery. The remainder of the right vertebral artery is diminutive, unchanged. ACT 112: Negative or not required by law. Electronically signed by: Justin Sheridan M.D. 05/16/2024 7:01 PM Code Status & VTE Plan Code Status Full code VTE Prophylaxis Plan VTE Prophylaxis will be ordered: Yes PG Care Time/CCT Total # of Minutes Spent Total Time Spent with Patient: Total time spent is greater than 50% in coordination of care (as documented) at patient's floor/unit and/or counseling patient: Coding Level of Care Code 59162 INT INP/OBS CARE 3/75MIN Diagnoses Weakness of left upper extremity R29.898 TIA (transient ischemic attack) G45.9 History of CVA (cerebrovascular accident) Z86.73 HTN (hypertension) I10 Aortic stenosis I35.0 Hypothyroidism E03.9 Carotid arterial disease I77.9
[2024-05-16] MEDS ORDERED: ACETAMINOPHEN 325 MG TAB PO PRN (21:15)
[2024-05-17] MEDS: LACTATED RINGER'S 1,000 ML IV SCH (02:43)
[2024-05-17] MEDS: LEVOTHYROXINE SODIUM 75 MCG TABLET PO SCH (06:03)
--- NOTE | 2024-05-17 07:33 | Electrocardiogram Report ---
Test Reason : Blood Pressure : */* mmHG Vent. Rate : 79 BPM Atrial Rate : 79 BPM P-R Int : 156 ms QRS Dur : 144 ms QT Int : 396 ms P-R-T Axes : 67 49 52 degrees QTcB Int : 454 ms Normal sinus rhythm Right bundle branch block Abnormal ECG When compared with ECG of 14-May-2024 18:45, T wave inversion no longer evident in Inferior leads Confirmed by Wilfredo Sanchez ([id number]) on 05/17/2024 7:32:58 AM Referred By: Confirmed By: Wilfredo Sanchez
[2024-05-17 08:00] LABS: Basophils # (auto) 0.08 K/uL (0.00-0.20); Basophils % (auto) 1.2 %; Eosinophils # (auto) 0.36 K/uL (0.00-0.50); Eosinophils % (auto) 5.2 %; Hematocrit (blood only) 37.5 % (42.0-52.0); Hemoglobin 12.1 g/dl (14.0-18.0); Immature Granulocytes # (auto) 0.02 K/uL (0.01-0.20); Immature Granulocytes % (auto) 0.3 %; Lymphocytes # (auto) 1.75 K/uL (1.20-3.40); Lymphocytes % (auto) 25.2 %; Mean Corpuscular Hgb Conc 32.3 g/dL (32.0-36.0); Mean Corpuscular Volume 89.9 fL (80.0-100.0); Mean Platelet Volume 9.2 fL (9.4-12.4); Monocytes # (auto) 0.47 K/uL (0.11-0.59); Monocytes % (auto) 6.8 %; Neutrophils # (auto) 4.27 K/uL (1.40-6.50); Neutrophils % (auto) 61.3 %; Platelet Count 319 K/uL (130-400); RDW Coefficient of Variation 13.2 % (11.5-14.5); RDW Standard Deviation 43.1 fL (36.4-46.3); Red Blood Count 4.17 M/uL (4.70-6.10); White Blood Count 6.95 K/ul (4.8-10.8)
[2024-05-17 08:16] LABS: Albumin Level 3.6 gm/dl (3.4-5.0); BUN Creatinine Ratio 22.1 (10-20); Calcium 8.8 mg/dl (8.6-10.3); Creatinine Clr Calc Pharmacy 76.5 ml/min; Est GFR (African American) 99.3 ml/min; Est GFR (Non-African American) 85.7 ml/min; Magnesium 1.8 mg/dl (1.7-2.4); Phosphorus 2.6 mg/dl (2.5-4.9); Potassium 4.1 mmol/L (3.5-5.1)
[2024-05-17] MEDS: CEROVITE ADV FORMULA TAB PO SCH (08:23)
[2024-05-17] MEDS: CALCITRIOL 0.25 MCG CAPSULE PO SCH (08:23)
[2024-05-17] MEDS: CLOPIDOGREL BISULFATE 75 MG TAB PO SCH (08:23)
[2024-05-17] MEDS: ASPIRIN 81 MG CHEW PO SCH (08:23)
[2024-05-17] MEDS: ATORVASTATIN 40 MG TAB PO SCH (08:23)
[2024-05-17] MEDS: OMEGA-3 (PURIFIED FISH OIL) 1 GM CAP PO SCH (08:23)
--- NOTE | 2024-05-17 09:29 | Neurology Consultation ---
Date of Consultation May 17, 2024 Assessment & Plan (1) History of CVA (cerebrovascular accident): History of Present Illness Attending Physician: Allan Bruce MD History of Present Illness S: pt this morning feeling much better. left arm numbness essentially resolved. no weakness. CT head and CTA head/neck stable from last week. pt was just here last week and seen by Dr. Nieto. chart reviewed. Admission HPI: The patient is an 78-year-old male with a past medical history including history of CVA, resolved facial numbness, vitamin D deficiency, hyperlipidemia, hypothyroidism, and hypertension. Workup in the emergency department on 05/08/2024, 05/14/2024, and this evening, included CT scan of head which was negative, CTA head which was negative, and CTA neck which showed no change in the 80 to 90% proximal right ICA narrowing, and occlusion at the origin of the right vertebral artery. The patient has a scheduled right CEA on 05/21/[address] Rucker. He reports that his symptoms of left upper extremity weakness and numbness are progressed since earlier studies. Telestroke assessment advises to continue aspirin and Plavix, and have the patient be a ssessed by neurology in the morning. Also to continue with the MRI brain which will be repeated this evening. The patient denies any associated dysphagia, dysarthria, vision or hearing change, headache, or any other associated neurologic issue. He denies any lower extremity weakness or numbness as well. Allergies Allergy/AdvReac Type Severity Reaction Status Date / Time No Known Allergies Allergy Verified 05/16/24 20:17 Home Medications Medication Instructions Recorded Confirmed Type aspirin 81 mg chewable tablet 1 tab PO QAM 12/06/19 05/16/24 History glucosamine-chondroitin 250 mg-200 1 tab PO QAM 12/06/19 05/16/24 History mg tablet brsumpev-bhr-gtgaz acid 0.4 1 tab PO QAM 12/06/19 05/16/24 History mg-lycopene 300 mcg-lutein 250 mcg tablet (Centrum Silver) calcitriol 0.25 mcg capsule 0.25 mcg PO QAM 12/24/23 05/16/24 History (Rocaltrol) levothyroxine 75 mcg tablet 75 mcg PO QAM #90 tabs 02/04/24 05/16/24 Rx atorvastatin 40 mg tablet 40 mg PO QAM 3 months #90 tabs 05/09/24 05/16/24 Rx clopidogrel 75 mg tablet 75 mg PO QAM 05/14/24 05/16/24 History lisinopril 5 mg tablet 5 mg PO QAM 05/14/24 05/16/24 History omega-3 fatty acids 1,000 mg 1,000 mg PO QAM 05/14/24 05/16/24 History capsule Patient History Medical History History of hypertension Per records History of BPH History of CVA (cerebrovascular accident) 05/08/24, [facility] admission, residual left sided head numbness Found to have significant carotid disease (reason for upcoming surgery) History of dysphagia History of Holter monitoring Placed by [facility] cardio 05/12/24 given recent CVA History of bladder stone Carotid arterial disease Neck CTA 05/08/24: Likely chronic hemodynamically significant ANASTASIYA stenosis. 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[facility] Hypothyroidism Chronic prostatitis Acid reflux Hx, no current issues History of colon polyps Urinary problem in male Self cath approximately 2 times per week History of kidney stones Tricuspid regurgitation Echo 04/2024: Mild TR Pulmonary hypertension "Mild" per records Aortic stenosis Echo 05/09/24: Moderate to severe aortic stenosis (MERY 0.75cm2, MG 23.6mmhg) Temporomandibular joint disorder Infrequent locking History of COVID-19 (08/2020) Cough > resolved Chronic sinusitis Surgical History H/O knee surgery Right meniscus repair History of bilateral cataract extraction History of carpal tunnel surgery R/L History of colonoscopy (03/2024) History of esophageal dilatation History of esophagogastroduodenoscopy (EGD) (03/2024) History of tooth extraction Several, "only 6 teeth" remaining History of urologic surgery Unknown details Hx of cholecystectomy (2003) Family History Brother Kidney stone Father , age 92 Cardiovascular disease Family history of prostate problems Cardiac disorder Stroke Sister Cancer Mother , age 93 Squamous cell carcinoma Other No family history of adverse response to anesthesia Social History Smoking Status: Never smoker Second Hand Exposure: No; Do You Dip or Chew Tobacco: No; Hx Alcohol Use: No Hx Substance Use: No Preferred Language: Australian Communication Ability: Effective Mechanical Intern Required: No Beliefs That Will Affect Care: None marital status: Current Living Situation: Spouse current occupational status: employed 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 Feels Safe at Home: Yes Safety Concerns: Feels Safe At This Time Assistive Devices: Denture - Upper, Denture - Lower and Glasses Review of Systems Review of Systems: All systems reviewed & are unremarkable except as noted in Subjective Constitutional: as per Subjective / HPI Eyes: as per Subjective / HPI Ear, Nose, Mouth, Throat: as per Subjective / HPI Respiratory: as per Subjective / HPI Cardiovascular: as per Subjective / HPI Gastrointestinal: as per Subjective / HPI Musculoskeletal: as per Subjective / HPI Integumentary: as per Subjective / HPI Neurologic: as per Subjective / HPI Psychiatric: as per Subjective / HPI Endocrine: as per Subjective / HPI Hematologic / Lymphatic: as per Subjective / HPI Allergy / Immunological: as per Subjective / HPI Exam (Neuro) Physical Exam: HEENT: normocephalic Neuro: Mental: AOx4, fluent speech, normal comprehension, no apraxia, no L/R confusion, no neglect CN: PERRL, Full EOM, symmetric face, midline T/U/P, 5/5 SCM/traps. Motor: No abnormal movements, normal tone and bulk, 5/5 t/o bilaterally (except 4+/5 b/l shoulder abduction, chronic in nature). Sens: intact to touch b/l grossly Coord: intact Gait: intact grossly Impression: 78 yo male with left arm numbness that has now self resolved in setting of recent small rt frontal punctate ischemic stroke and known rt ICA 90% stenosis. Pt clinically stable and no new deficits. pt likely having fluctuating symptoms from his recent stroke and maybe some anxiety contributing. Recommendations: 1.pt already had recent stroke work up. i do not see the need for repeat full work up at this point given pt clinically doing well. he has heart monitor preventing him from getting mri, I don't see the need for mri as it will not business change manager and pt clinically stable and no new deficits. 3. no clear need for permissive HTN at t his point. continue DAPT pending rt CEA on 05/21/2024. I recommend he should go ahead and do the surgery as planned. 6. Long-term SBP goal less than 130. 7. Plenty of hydration Avoid hypovolem ia and hypotension. 8. Initiate DVT prevention therapy. 9. Avoid hypoglycemia, serum glucose goa l during hospitalization: 140-180. continue statin. if he continues to do well today, likely can be discharged this afternoon or tomorrow morning. Chart reviewed I have spent more than 50% educating patient about potential diagnosis and neurological evaluation and coordinating care with patient's treatment team. Total time spent (including chart review and coordination of care): 60 min (this includes chart review). Results & Data Vital Signs (Past 12 Hours) Vital Signs Temp Pulse Pulse Resp BP Pulse Ox O2 Del Method 05/17/24 07:34 36.7 C 67 18 133/73 96 Room Air 05/17/24 03:00 36.4 C L 74 16 158/76 H 97 Room Air 05/16/24 22:30 36.8 C 66 16 132/67 96 Room Air 05/16/24 22:08 73 05/16/24 21:35 73 PG Care Time/CCT Total # of Minutes Spent Total Time Spent with Patient: Total time spent is greater than 50% in coordination of care (as documented) at patient's floor/unit and/or counseling patient: Coding Level of Care Code 89417 IN/OBS CONSULT LVL 4,60M Diagnoses History of CVA (cerebrovascular accident) Z86.73
--- OUTSIDE RECORDS SUMMARY | 2024-05-17 12:01 | External Medical Summary | Continuity of Care Document ---
Author Name Unknown Organization [facility] [address] [facility] Yohannes Address [address] [place], [place] [id number] Care Team Providers Care School Director Name Role Phone Duc Marin III Primary Care Physician [phone] [id number] Date(s): 05/14/[facility] - 05/14/24 [facility] [address] [facility], [address] [place] [address] [phone] Encounter Diagnosis Bilateral carotid artery stenosis(Discharge Diagnosis) - 05/14/24 Discharge Disposition: Home or Self Care Attending Physician: MD Rucker Eugene J Allergies, Adverse Reactions, Alerts No Known Medication Allergies Assessment and Plan Extracted from: Title:Clinical Document Author:GUILLERMINA Morgan Lynn Date:05/14/24 [facility] OUTPATIENT NOTE Name: KIRK MAST Patient Number: [id number] : 1945 Date of Service: 05/14/2024 Chief Complaint: _Consultation for right ICA stenosis HPI: _Mr. Mast is a notedly male who presents to Dr. Rucker's vascular surgery clinic today as a new patient in consultation for right ICA stenosis and a recent CVA. Patient states that he had no prior knowledge of any carotid stenosis. He unfortunately developed numbness and tingling to the left side of his face 1 week ago, and decided to go to the [facility] emergency department the following morning. Imaging performed at that time indicated a 95% right ICA stenosis, as well as a right sided infarct. Patient never had symptoms similar to this in the past. Patient states that he occasionally still gets some slight numbness left side of his face, but that it has improved considerably since last week. He denies any amaurosis, unilateral extremity weakness numbness or tingling, difficulty speaking or swallowing, or visible facial droop. He denies any changes in his cognitive status. This is confirmed by his . He denies significant headache, fever, chest pain, shortness of breath, bone pain, nausea, vomiting, rest pain, claudication, nonhealing wounds or ulcers, other complaints. He was seen by Dr. Rucker in the remote past regarding varicose veins of the bilateral lower extremities. Patient states that he continues to do well wearing the compression stockings as prescribed. Review of systems: A total of 14 systems were reviewed and are negative aside from what is related in his HPI Imaging: A CT angiogram performed at [facility] on 05/08/2024 demonstrates 95% stenosis of the right ICA as well as a chronic occlusion of right vertebral artery. An MRI of the brain performed on 05/08/2024 at [facility] demonstrates tiny embolic strokes to the right frontal lobe. Current Home Meds: (Last Updated 05/14 09:17) aspirin (aspirin 81 mg oral delayed release tablet) 81 mg PO Daily atorvastatin (atorvastatin 40 mg oral tablet) TAKE 1 TABLET BY MOUTH IN THE MORNING FOR 3 MONTHS. calcitriol (calcitriol 0.5 mcg oral capsule) 0.5 mcg PO Daily cholecalciferol (Vitamin D3) 5,000 Int_Unit PO Daily chondroitin-glucosamine (Osteo Bi-Flex) ciprofloxacin (ciprofloxacin 500 mg oral tablet) TAKE 1 TABLET BY MOUTH EVERY 12 HOURS FOR 3 DAYS clopidogrel (clopidogrel 75 mg oral tablet) TAKE 1 TABLET BY MOUTH EVERY DAY levothyroxine (levothyroxine 75 mcg (0.075 mg) oral tablet) 75 mcg PO Daily lisinopril (lisinopril 5 mg oral tablet) TAKE 1 TABLET BY MOUTH EVERY DAY multivitamin 1 tab PO Daily omega-3 polyunsaturated fatty acids (Argyle-3 oral capsule) Allergies and Sensitivities: No Known Medication Allergies Past Medical History: Problems: Bilateral carotid artery stenosis Pulmonary HTN Aortic stenosis Complicated varicose veins Venous reflux Burning sensation of feet Hypothyroidism Hypertension Hyperparathyroidism Surgical history: Positive for cholecystectomy Family history: Positive for hypertension, cancer, carotid stenosis, stroke Social history: Negative for tobacco alcohol or drug use. He is and lives with his . OBJECTIVE Vitals: Last Updated 05/14/24 09:31 Date Temp BP Location Pulse RR SpO2 Pain 05/14/24 0 05/14/24 120/54 Right Arm 05/14/24 122/60 Left Arm 77 96 Vital Signs are the last 3 documented. No Orthostatic Data Available Height and Weight: Last Updated 04/22/24 10:56 Date BMI Wt(kg) Wt(lb) Method Ht(cm) (ft-in) Method 04/22/24 71.4 157 Standing Scale 03/25/24 71.4 157 Standing Scale 12/10/23 73 161 Standing Scale Heights and Weights are the last 3 documented. Physical Exam Constitutional: In general patient is a healthy appearing for age well-nourished well-developed elderly male no distress. He is alert and oriented without any focal deficits. His right and left carotid arteries do demonstrate a sound which is likely a projected aortic stenosis murmur. I am unable to appreciate a bruit. His heart is regular with a loud systolic ejection murmur. His lungs are decreased slightly but clear throughout. His abdomen is soft and nontender with normoactive bowel sounds in all 4 quadrants. Brachial and radial pulses are +3. Femoral pulses are +3. Lower extremity distal pulses are +2. He has brisk capillary refill and no sign of distal ischemia. ASSESSMENT: _ PLAN: _ 1 ) _severe right ICA stenosis with CVA Patient did have a CVA last week, and his symptoms are nearly resolved. He has a severe stenosis of the right ICA, which is likely the cause of his symptoms, as a ulceration is noted in the plaque. His imaging was reviewed by Dr. Rucker, who recommends that patient consider undergoing surgical intervention. The options of carotid endarterectomy versus transcarotid artery revascularization were discussed at length with the patient and his . The patient decides to proceed with TCAR. The risks benefits and alternatives, including but not limited to bleeding, infection, stroke, myocardial infarction, nerve damage, blood clots, and , were discussed at length with the patient, he expresses understanding and agreement to proceed. This will occur within the next week or so. Patient was already started on the aspirin Plavix and statin regimen that will be required to maintain patency of his stent. He was advised to continue taking these medications for at least a year postoperatively, and not to stop these medications for his upcoming TCAR procedure. Patient and his were given an informational pamphlet as well, and advised to call our office if they have any further questions. They are in agreement to this plan. Thank you for letting us participate in the care of this patient. I have personally spent__48_ minutes performing yubl-rq-dhru and odk-impw-dy-face activities on this date of service.Time does not include separately reported services. Activities Include: _x_ review of the medical record _x_ obtaining a history _x_ physical exam/evaluation x__ review labs x__ review radiology reports _x_ counseling/educating patient/family/caregiver __ discussion/referral to other healthcare professional x_ documenting care in the medical record __ independent interpretation of results _x_ communication of results to patient/family/caregiver x__ coordination of care Medications aspirin 81 mg oral delayed release [...] PO, Daily Start Date: 03/10/21 Status: Ordered Argyle-3 oral capsule Start: 03/10/21 3:38:00 PM EDT, See Instructions, Note to Pharmacy: take 1 capsule PO daily Start Date: 03/10/21 Status: Ordered Osteo Bi-Flex Start: 03/10/21 3:34:00 PM EDT, See Instructions, Note to Pharmacy: take1 tab PO daily Start Date: 03/10/21 Status: Ordered Vitamin D3 Start: 03/10/21 3:37:00 PM EDT, 5,000 Int_Unit =, PO, Daily Start Date: 03/10/21 Status: Ordered Mental Status 05/14/24 Barriers to Learning one year None evide nt Mandatory Health Literacy Documentation Yes Health Literacy Communication Barriers N ever Primary Language Lao Problem List Condition Confirmation Course Effective Dates Status Health St atus Informant Aortic stenosis Confirmed Active Bilateral carotid artery stenosis Confirmed Active Burning sensation of feet Confirmed Active Pulmonary HTN Confirmed Active Venous reflux Confirmed Active Complicated varicose veins Confirmed Active Diagnosis Diagnosis Type Effective Dates Health Status Cl inical Service Informant Bilateral carotid artery stenosis Discharge Diagnosis 05/14/24 Procedures Procedure Date Related Diagnosis Body Site [...] ago 5meniscal sx approx 30+ years ago Vital Signs Most recent to oldest [Reference Range]: 1 2 Heart Rate 77 bpm (05/14/24 9:24 AM) Blood Pressure 120/54mmHg (05/14/24 9:26 AM) 122/60mmHg (05/14/24 9:24 AM) Cuff Pulse Pressure 66 mmHg (05/14/24 9:26 AM) 62 mmHg (05/14/24 9:24 AM) BP Location # 1 Right Arm (05/14/24 9:26 AM) Left Arm (05/14/24 9:24 AM) Social History Social History Type Response Smoking Status Never smoked cigaret mariano Sex Male Sex Representation Male (finding) [facility] Outpt Note * GUILLERMINA Morgan Lynn: PERFORM Event Display: [facility] Outpt Note Authored Date: [id number] [facility] OUTPATIENT NOTE Name: KIRK MAST Patient Number: [id number] : 1945 Date of Service: 05/14/2024 Chief Complaint: _Consultation for right ICA stenosis HPI: _Mr. Mast is a notedly male who presents to Dr. Rucker's vascular surgery clinic today as a new patient in consultation for right ICA stenosis and a recent CVA. Patient states that he had no prior knowledge of any carotid stenosis. He unfortunately developed numbness and tingling to the leftside of his face 1 week ago, and decided to go to the [facility] emergency department the following morning. Imaging performed at that time indicated a 95% right ICA stenosis, as well as a right sided infarct. Patient never had symptoms similar to this in the past. Patient states that he occasionally still gets some slight numbness left side of his face, but that it has improvedconsiderably since last week. He denies any amaurosis, unilateral extremity weakness numbness or tingling, difficulty speaking or swallowing, or visible facial droop. He denies any changes in his cognitive status. This is confirmed by his . He denies significant headache, fever, chest pain, shor tness of breath, bone pain, nausea, vomiting, rest pain, claudication, nonhealing wounds or ulcers,other complaints. He was seen by Dr. Rucker in the remote past regarding varicose veins of the bilateral lower extremities. Patient states that he continues to do well wearing the compression stockings as prescribed. Review of systems: A total of 14 systems were reviewed and are negative aside from what is related in his HPI Imaging: A CT angiogram performed at [facility] on 05/08/2024 demonstrates 95% stenosis of the right ICA as well as a chronic occlusion of right vertebral artery. An MRI of the brainperformed on 05/08/2024 at [facility] demonstrates tiny embolic strokes to the right frontal lobe. Current Home Meds: (Last Updated 05/14 09:17) aspirin (aspirin 81 mg oral delayed release tablet) 81 mg PO Daily atorvastatin (atorvastatin 40 mg oral tablet) TAKE 1 TABLET BY MOUTH IN THE MORNING FOR 3 MONTHS. calcitriol (calcitriol 0.5 mcg oral capsule) 0.5 mcg PO Daily cholecalciferol (Vitamin D3) 5,000 Int_Unit PO Daily chondroitin-glucosamine (Osteo Bi-Flex) ciprofloxacin (ciprofloxacin 500 mg oral tablet) TAKE 1 TABLET BY MOUTH EVERY 12 HOURS FOR 3 DAYS clopidogrel (clopidogrel 75 mg oral tablet) TAKE 1 TABLET BY MOUTH EVERY DAY levothyroxine (levothyroxine 75 mcg (0.075 mg) oral tablet) 75 mcg PO Daily lisinopril (lisinopril 5 mg oral tablet) TAKE 1 TABLET BY MOUTH EVERY DAY multivitamin 1 tab PO Daily omega-3 polyunsaturated fatty acids (Argyle-3 oral capsule) Allergies and Sensitivities: No Known Medication Allergies Past Medical History: Problems: Bilateral carotid artery stenosis Pulmonary HTN Aortic stenosis Complicated varicose veins Venous reflux Burning sensation of feet Hypothyroidism Hypertension Hyperparathyroidism Surgical history: Positive for cholecystectomy Family history: Positive for hypertension, cancer, carotid stenosis, stroke Social history: Negative for tobacco alcohol or drug use. He is and lives with his . OBJECTIVE Vitals: Last Updated 05/14/24 09:31 Date Temp BP Location Pulse RR SpO2 Pain 05/14/24 0 05/14/24 120/54 Right Arm 05/14/24 122/60 Left Arm 77 96 Vital Signs are the last 3 documented. No Orthostatic Data Available Height and Weight: Last Updated 04/22/24 10:56 Date BMI Wt(kg) Wt(lb) Method Ht(cm) (ft-in) Method 04/22/24 71.4 157 Standing Scale 03/25/24 71.4 157 Standing Scale 12/10/23 73 161 Standing Scale Heights and Weights are the last 3 documented. Physical Exam Constitutional: In general patient is a healthy appearing for age well-nourished well-developed elderly male no distress. He is alert and oriented without any focal deficits. His right and left carotid arteries do demonstrate a sound which is likely a projected aortic stenosis murmur. I am unable to appreciate a bruit. His heart is regular with a loud systolic ejection murmur. His lungs are decrea sed slightly but clear throughout. His abdomen is soft and nontender with normoactive bowel sounds in all 4 quadrants. Brachial and radial pulses are +3. Femoral pulses are +3. Lower extremity distalpulses are +2. He has brisk capillary refill and no sign of distal ischemia. ASSESSMENT: _ PLAN: _ 1 ) _severe right ICA stenosis with CVA Patient did have a CVA last week, and his symptoms are nearly resolved. He has a severe stenosis ofthe right ICA, which is likely the cause of his symptoms, as a ulceration is noted in the plaque. His imaging was reviewed by Dr. Rucker, who recommends that patient consider undergoing surgical intervention. The options of carotid endarterectomy versus transcarotid artery revascularization were dis cussed at length with the patient and his . The patient decides to proceed with TCAR. The risksbenefits and alternatives, including but not limited to bleeding, infection, stroke, myocardial infarction, nerve damage, blood clots, and , were discussed at length with the patient, he expresses understanding and agreement to proceed. This will occur within the next week or so. Patient was already started on the aspirin Plavix and statin regimen that will be required to maintain patency ofhis stent. He was advised to continue taking these medications for at least a year postoperatively,and not to stop these medications for his upcoming TCAR procedure. Patient and his were given an informational pamphlet as well, and advised to call our office if they have any further questions. They are in agreement to this plan. Thank you for letting us participate in the care of this patient. I have personally spent__48_ minutes performing ifsq-sd-uwyg and kej-jwfk-wk-face activities on this date of service.Time does not include separately reported services. Activities Include: _x_ review of the medical record _x_ obtaining a history _x_ physical exam/evaluation x__ review labs x__ review radiology reports _x_ counseling/educating patient/family/caregiver __ discussion/referral to other healthcare professional x_ documenting care in the medical record __ independent interpretation of results _x_ communication of results to patient/family/caregiver x__ coordination of care Electronic Signature on File CC: Duc Marin MD [address] [id number] * CC: Ricardo De La Fuente DO [address] [place] [address] [facility] [address] Electronically Reviewed/Signed by: Sheridan Morgan PA-C Author Signature Dt/Tm:05/14/2024 01:[address] [facility] [place]-[address] [place] [address] LM Patient Care team information Care Team Personnel Name: Tania SANCHEZ MD, Duc Obregon Position: Referring Member Role: Primary Care Provider Address: [address] [address] [place] Name: GUILLERMINA Morgan Lynn Position: Physician Manager Embalmer Funeral Director Exempt - Vasc Surg Member Role: Lifetime Relationship Address: [address] [place] [address], [place] [address] [place]
[2024-05-17] MEDS: lisinopril 5 MG TAB PO SCH (12:35)
--- NOTE | 2024-05-17 14:59 | Hospitalist Progress Note ---
Date of Service May 17, 2024 Assessment & Plan (1) Weakness of left upper extremity: (2) TIA (transient ischemic attack): (3) History of CVA (cerebrovascular accident): (4) HTN (hypertension): (5) Aortic stenosis: (6) Hypothyroidism: (7) Carotid arterial disease: Plan Weakness of left upper extremity/TIA/history of CVA/80 to 90% proximal right ICA stenosis/occlusion origin right vertebral artery- Continue aspirin 81 mg daily and clopidogrel 75 mg daily Continue statin Neurology consulted. Recommends continuing DAPT, statin. This may be fluctuating symptoms of previous CVA versus TIA. No need for permissive hypertension. Resume lisinopril. Discontinue IV fluids MRI brain held due to presence of heart monitor Consult neurology Patient should proceed with right CEA scheduled for 05/21 Hyperlipidemia- Continue atorvastatin Aortic stenosis- Noted on recent echo on 05/09/2024, and will not be repeated Hypothyroidism- Continue levothyroxine Will monitor patient for another 24 hours, especially after resuming lisinopril. Admission and Anticipated Discharge Date Admission Date: May 16, 2024 Subjective Patient feels well. Denies chest pain or shortness of breath. Left arm numbness and weakness is resolved. Review of Systems Review of Systems: All systems reviewed & are unremarkable except as noted in Subjective Physical Exam Physical Exam: General: Awake, conversant Heart: S1, S2/regular rate and rhythm, no murmur rubs or gallops Lungs: Clear to auscultation bilaterally. Normal effort Abdomen: Soft/nontender/nondistended. No hepatosplenomegaly Extremities: No clubbing/cyanosis. No edema Behavior: Appropriate, cooperative Results & Data Results & Data Vital Signs (Past 12 Hours) Vital Signs Temp Pulse Pulse Resp BP Pulse Ox O2 Del Method 05/17/24 14:34 73 05/17/24 11:40 36.6 C 64 18 130/61 96 Room Air 05/17/24 07:34 36.7 C 67 18 133/73 96 Room Air 05/17/24 07:28 65 05/17/24 03:00 36.4 C L 74 16 158/76 H 97 Room Air Laboratory Results Abnormal lab results 05/16/24 05/16/24 05/16/24 Range/Units 18:44 18:45 18:51 RBC 4.13 L (4.70-6.10) M/uL Hgb 12.0 L (14.0-18.0) g/dl POC Hgb 12.2 L (14.0-18.0) g/dl Hct 37.2 L (42.0-52.0) % POC Hct 36 L (42-52) % MPV 9.1 L (9.4-12.4) fL POC BUN 22 H (7-18) mg/dl BUN 26 H (6-23) mg/dl BUN/Creatinine Ratio 34.7 H (10-20) Glucose 123 H (70-99(Fasting)) mg/dl POC Glucose 137 H (70-99) mg/dl POC Glucose (other) 119 H (70-99) mg/dl 05/17/24 Range/Units 07:29 RBC 4.17 L (4.70-6.10) M/uL Hgb 12.1 L (14.0-18.0) g/dl POC Hgb (14.0-18.0) g/dl Hct 37.5 L (42.0-52.0) % POC Hct (42-52) % MPV 9.2 L (9.4-12.4) fL POC BUN (7-18) mg/dl BUN (6-23) mg/dl BUN/Creatinine Ratio 22.1 H (10-20) Glucose 103 H (70-99(Fasting)) mg/dl POC Glucose (70-99) mg/dl POC Glucose (other) (70-99) mg/dl PG Care Time/CCT Total # of Minutes Spent Total Time Spent with Patient: Total time spent is greater than 50% in coordination of care (as documented) at patient's floor/unit and/or counseling patient: Coding Level of Care Code 12869 SUB INP/OBS CARE 2/35MIN Diagnoses Weakness of left upper extremity R29.898 TIA (transient ischemic attack) G45.9 History of CVA (cerebrovascular accident) Z86.73 HTN (hypertension) I10 Aortic stenosis I35.0 Hypothyroidism E03.9 Carotid arterial disease I77.9
[2024-05-18 06:17] LABS: Basophils # (auto) 0.09 K/uL (0.00-0.20); Basophils % (auto) 1.6 %; Eosinophils # (auto) 0.37 K/uL (0.00-0.50); Eosinophils % (auto) 6.6 %; Hematocrit (blood only) 37.1 % (42.0-52.0); Hemoglobin 11.9 g/dl (14.0-18.0); Immature Granulocytes # (auto) 0.01 K/uL (0.01-0.20); Immature Granulocytes % (auto) 0.2 %; Lymphocytes # (auto) 1.64 K/uL (1.20-3.40); Lymphocytes % (auto) 29.1 %; Mean Corpuscular Hemoglobin 28.9 pg (25.0-34.0); Mean Corpuscular Hgb Conc 32.1 g/dL (32.0-36.0); Mean Platelet Volume 9.2 fL (9.4-12.4); Monocytes # (auto) 0.51 K/uL (0.11-0.59); Neutrophils # (auto) 3.02 K/uL (1.40-6.50); Neutrophils % (auto) 53.5 %; Platelet Count 279 K/uL (130-400); RDW Coefficient of Variation 12.9 % (11.5-14.5); RDW Standard Deviation 42.4 fL (36.4-46.3); Red Blood Count 4.12 M/uL (4.70-6.10); White Blood Count 5.64 K/ul (4.8-10.8)
[2024-05-18 06:28] LABS: Albumin Level 3.5 gm/dl (3.4-5.0); BUN Creatinine Ratio 25.9 (10-20); Calcium 8.6 mg/dl (8.6-10.3); Creatinine Clr Calc Pharmacy 69.3 ml/min; Est GFR (African American) 95.4 ml/min; Est GFR (Non-African American) 82.3 ml/min; Magnesium 1.9 mg/dl (1.7-2.4); Phosphorus 2.9 mg/dl (2.5-4.9); Potassium 3.8 mmol/L (3.5-5.1)
--- NOTE | 2024-05-18 10:27 | Discharge Summary ---
Date of Service May 18, 2024 Admission HPI Per Admitting Provider The patient is an 78-year-old male with a past medical history including history of CVA, resolved facial numbness, vitamin D deficiency, hyperlipidemia, hypothyroidism, and hypertension. Workup in the emergency department on 05/08/2024, 05/14/2024, and this evening, included CT scan of head which was negative, CTA head which was negative, and CTA neck which showed no change in the 80 to 90% proximal right ICA narrowing, and occlusion at the origin of the right vertebral artery. The patient has a scheduled right CEA on 05/21/[address] Rucker. He reports that his symptoms of left upper extremity weakness and numbness are progressed since earlier studies. Telestroke assessment advises to continue aspirin and Plavix, and have the patient be assessed by neurology in the morning. Also to continue with the MRI brain which will be repeated this evening. The patient denies any associated dysphagia, dysarthria, vision or hearing change, headache, or any other associated neurologic issue. He denies any lower extremity weakness or numbness as well. Admission Exam Per Admitting Provider The patient is awake, alert and oriented 3, well developed and well nourished, normocephalic and atraumatic, lying in bed and in no acute distress. HEENT--PERRL, EOMI, mucous membranes and oropharynx dry. Neck--supple. No JVD. No bruits. Thyroid normal, trachea midline, no adenopathy. Heart--normal S1 and S2. No murmurs, rubs or gallops. Lungs--clear bilaterally, no respiratory distress, no accessory muscle use. Abdomen--normal bowel sounds and soft. Nontender. Nondistended, no hernias or masses, no organomegaly. Extremities--no cyanosis or clubbing. No edema. There are good distal pulses b/l. Dermatologic--normal skin turgor, normal color, no abnormal lymph nodes, no rash. Neurologic--cranial nerves II through XII grossly intact. Mild weakness to flexion and extension left upper extremity at the elbow. Mildly decreased sensa tion left upper extremity below the elbow Rheumatologic--normal range of motion. Psychiatric--normal affect. Principal Diagnosis TIA versus fluctuating symptoms from recent stroke with anxiety contributing. Discharge Exam General: Awake, conversant Heart: S1, S2/regular rate and rhythm, no murmur rubs or gallops Lungs: Clear to auscultation bilaterally. Normal effort Abdomen: Soft/nontender/nondistended. No hepatosplenomegaly Extremities: No clubbing/cyanosis. No edema Behavior: Appropriate, cooperative Discharge Data Allergies Allergy/AdvReac Type Severity Reaction Status Date / Time No Known Allergies Allergy Verified 05/16/24 20:17 Consultations 05/16/24 19:39 ED Decision to Admit Stat 05/16/24 21:15 Consult Neurology Routine 05/17/24 02:31 Consult Vascular Surgery Routine Ordered Studies 05/16/24 18:41 CT angio head w con Stat CT angio neck with con Stat CT head/brain wo con Stat Hospital Course (1) Weakness of left upper extremity: (2) TIA (transient ischemic attack): (3) History of CVA (cerebrovascular accident): (4) HTN (hypertension): (5) Aortic stenosis: (6) Hypothyroidism: (7) Carotid arterial disease: Plan Weakness of left upper extremity/TIA/history of CVA/80 to 90% proximal right ICA stenosis/occlusion origin right vertebral artery- Continue aspirin 81 mg daily and clopidogrel 75 mg daily Continue statin Neurology consulted. Recommends continuing DAPT, statin. This may be fluctuating symptoms of previous CVA versus TIA. No need for permissive hypertension. Resumed lisinopril. Blood pressure stable Discontinued IV fluids MRI brain held due to presence of heart monitor Patient should proceed with right CEA scheduled for 05/21 Hyperlipidemia- Continue atorvastatin Aortic stenosis- Noted on recent echo on 05/09/2024, and will not be repeated Hypothyroidism- Continue levothyroxine Discharge to home today Total Time Total Time Spent Total Time Spent (In Minutes): 35 Discharge Plan Discharge Items Patient Disposition: Home - Self-Care Reason For Visit: TIA Discharge Diagnosis: TIA versus fluctuating symptoms from recent stroke with anxiety contributing. Activity: Resume your previous activity Non-emergency contact: Primary Care Provider Call non-emergency contact if: you have any medication questions and your symptoms worsen Follow-up/Referrals: Hakan Marin [Primary Care Provider] - Diet: Heart Healthy Addtl Attending Provider Instructions: Advised to follow-up with PCP in 1 week Advised to proceed with the right carotid endarterectomy scheduled for 05/21/2024 Advised to stay hydrated Pending Studies at Discharge: No Stand-Alone Forms: Peter Blueberry, Smoking Cessation Medications and DC Order Prescriptions: Continued aspirin 81 mg tablet,chewable 1 tab PO QAM Centrum Silver 0.4-300-250 mg-mcg-mcg tablet 1 tab PO QAM Rx Instructions: ON HOLD FOR SURGERY glucosamine-chondroitin 250-200 mg tablet 1 tab PO QAM Rx Instructions: ON HOLD FOR SURGERY levothyroxine 75 mcg tablet 75 mcg PO QAM Qty: 90 1RF atorvastatin 40 mg Tablet 40 mg PO QAM 90 Days Qty: 90 0RF clopidogrel 75 mg tablet 75 mg PO QAM lisinopril 5 mg tablet 5 mg PO QAM calcitriol [Rocaltrol] 0.25 mcg capsule 0.25 mcg PO QAM omega-3 fatty acids 1,000 mg Capsule 1,000 mg PO QAM Rx Instructions: ON HOLD FOR SURGERY Discharge Orders: Discharge Order (Routine); Ordered 05/18/24 Ordered By: Allan Cornejo/Other Patient Handouts: Carotid Artery Problems: Stroke, Having Carotid Endarterectomy Admission Data Admit Date/Time: 05/16/24 20:18 Attending Provider: Allan Bruce Admit Provider: Job Salmon Primary Care Provider: Hakan Marin Other Providers: Job Salmon; Kp De La Cruz; Nicola Rucker Other Interventions: Discharge Summary Assessment (RN) Last Done: 05/18/24 10:41
[2024-05-18 10:43] VITALS: BP 126/70; PULSE 73; RESP 19; TEMP 97.7; O2SAT 97
--- OUTSIDE RECORDS SUMMARY | 2024-05-18 10:46 | External Medical Summary | Continuity of Care Document ---
Author Name Unknown Organization [facility] [address] [facility] [address] [place], [place] [id number] Care Team Providers Care Rack Puller Name Role Phone Duc Marin III Primary Care Physician [phone] [id number] Date(s): 05/15/24 - 05/15/24 [facility] [address] [facility] [address], [facility] [address] [place], [place] [phone] Encounter Diagnosis Occlusion and stenosis of bilateral carotid arteries(Final) - Discharge Disposition: Home or Self Care Attending Physician: GUILLERMINA Morgan Lynn Referring Physician: GUILLERMINA Morgan Lynn Allergies, Adverse Reactions, Alerts No Known Medication [...] TABLET BY MOUTH EVERY DAY Start Date: 8/29/24 Status: Ordered multivitamin Start: 03/10/21 3:34:00 PM EDT, 1 tab, PO, Daily Start Date: 03/10/21 Status: Ordered [place]-3 oral capsule Start: 03/10/21 3:38:00 PM EDT, [...] ago 5meniscal sx approx 30+ years ago Results Laboratory List Name Date Platelet Function (P2Y12 Receptor) (PLT FUNCTION P2Y12) 05/15/24 Most recent to oldest [Reference Range]: 1 P2Y12 Platelet Function [194-418 PRU] 18 9 PRU 1 *LOW* (05/15/24 10:28 AM) 1Result Comment: PRU reference range is 194-418 (healthy adults, no drug treatment). Post Drug Results: Lower PRU levels are expected following treatment with antiplatelet drugs. Post-treatment values are usually below the stated reference range above. The post-drug PRU values reported in the [employer] P2Y12 package insert are 18-435. This broader range reflects the variability in drug response and is consistent with significant numbers of patients with decreased sensitivity to P2Y12 receptor antagonists (prasugrel or clopidogrel). Clinical studies suggest an on-treatment PRU>230 indicates less than optimal response to therapy, and PRU<208 at 12-24 hours after percutaneous intervention or during follow-up is associated with a lower risk of cardiovascular events (1). (1).Standard-vs high-dose clopidogrel based on platelet function testing after percutaneouscoronary intervention: the GRAVITAS randomized trial. Barney et al. DILLON. 2010November 29; 305(11): 5611-1839. 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
== END 2024-05-18 11:28 | disposition home or self-care (01) ==
LOC: ED 18:24 → 2S 18:24 → SUATTDRO 20:18 → 2S 21:09

== ENCOUNTER 2024-05-21 10:45 | Inpatient (IN) ==
--- NOTE | 2024-05-14 13:42 | Anesthesiology Consultation ---
Date of Service May 14, 2024 Assessment & Plan (1) Encounter for pre-operative examination: - Infectious disease screening: Per assessment on 05/14/24: No known recent infectious disease contacts or current infectious disease symptoms. - ASA/plavix instructions per surgeon/prescriber - Cardiology visit (04/22/24): Aortic stenosis.. He underwent echocardiography today. He has nearly severe aortic stenosis which remains asymptomatic. His carotid upstrokes are not delayed and there is nothing to suggest parvus tardus.. At this point he remains asymptomatic.. I will see him back in 4 months." Spoke with Lin with cardiology office via phone 05/15/24- they confirm cardio aware of recent [facility] admission/CVA/upcoming carotid surgery. Cardio placed patient on 30-day cardiac event monitor 05/12/24 given recent CVA > they indicate will not have findings prior to upcoming carotid surgery. - Neurology inpatient consult (05/09/24): "This patient had the onset of acute s troke likely late May 07 or early May 08. These are several punctate strokes in the right frontal head region and may be embolic from the right carotid artery (he did a lot of head turning and twisting underneath the car the evening before). With his history of aortic stenosis I cannot exclude these being embolic from the heart. Clinically he is doing quite well and he is left face and upper arm dysesthesias are essentially resolved. He has no other focal neurologic findings, meningeal signs, or encephalopathy. 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 CT angiography showed an occluded right vertebral artery at the origin which is likely old and a 75% stenotic right internal carotid artery at the origin with extensive plaque. Re commendations: 1. Awaiting echocardiogram results. 2. Agree with dual antiplatelet therapy for now with 81 mg aspirin +75 mg clopidogrel daily. 3. No anticoagulation, unless echo cardiogram suggest embolic source from the heart 4. With the patient in his 80s, and a total cholesterol of 186, I would not consider him to be a high-dose statin candidate. Therefore, I agree with atorvastatin 40 mg daily. 5. The patient (could be as an outpatient) would benefit from a vascular surgery consult regarding internal carotid artery stenosis." - PCP visit (05/13/24): "..8 Dx Mini Stroke.. Patient had Pneumonia. Patient was in [place] April 28. Patient completed azithromycin and cefdinir.. On Saturday morning Heart doctor put on a heart monitor for 30 days.. Consult to neurology. Follow up with vascular surgery. Follow up with cardiology.." - [facility] ER visit (05/14/24): "The patient is an 78-year-old male who was d ischarged from our hospital 5 days ago. He was diagnosed with a mini stroke. He is on Lipitor, aspirin and Plavix. The patient states that he was told that there was a 95% blockage to his right carotid artery. He is scheduled to have an operation on this artery by Dr. Rucker in 1 week.. The patient states that 4.5 hours ago, he had numbness across the anterior abdomen and the entire face. This lasted 2 minutes. His arms and legs were moving well--no deficits appreciated.. Things resolved spontaneously. He was able to function throughout the rest of the afternoon but then decided he better come for an evaluation.. CTA of the head and neck were performed. The right ICA stenosis was again seen. This imaging was similar to previous imaging. On exam, the patient had no focal neurologic findings and was without complaints during the time of my evaluation.. I discussed the case with neurology on-call. No changes to be made to his medications. He should continue on the aspirin, Plavix and Lipitor. He should follow-up with his vascular surgeon as scheduled next week. If things do escalate or worsen, he can report back for reassessment. At this point, the cause for his complaints today is unclear, TIA was considered. If things do escalate or worsen, he can report back for reassessment. At this point, the cause for his complaints today is unclear, TIA was considered." > Morales at surgeon's office made aware of recent [facility] ER visit and states she will have Jes/surgeon updated. - Patient acceptable risk for given surgery pending evaluation DOS. Chart Review Chart Review: Patient NOT seen in Pre Admission Testing History Surgery Operation Date: 05/21/24 13:00 Proposed Procedures p Right Transcarotid Artery Revascularization - Nicola Rucker MD Height/Weight Height: 5 ft 9.5 in Weight: 72.575 kg Allergies Allergy/AdvReac Type Severity Reaction Status Date / Time No Known Allergies Allergy Verified 05/14/24 21:21 Medications Home Medications Medication Instructions Recorded Confirmed Last Taken aspirin 81 mg chewable tablet 1 tab PO QAM 12/06/19 05/14/24 05/14/24 glucosamine-chondroitin 250 mg-200 1 tab PO QAM 12/06/19 05/14/24 05/07/24 mg tablet yiojwooj-yox-gweid acid 0.4 1 tab PO QAM 12/06/19 05/14/24 05/07/24 mg-lycopene 300 mcg-lutein 250 mcg tablet (Centrum Silver) calcitriol 0.25 mcg capsule 0.25 mcg PO QAM 12/24/23 05/14/24 05/14/24 (Rocaltrol) levothyroxine 75 mcg tablet 75 mcg PO QAM #90 tabs 02/04/24 05/14/24 05/14/24 atorvastatin 40 mg tablet 40 mg PO QAM 3 months #90 tabs 05/09/24 05/14/24 05/14/24 clopidogrel 75 mg tablet 75 mg PO QAM 05/14/24 05/14/24 05/14/24 lisinopril 5 mg tablet 5 mg PO QAM 05/14/24 05/14/24 05/14/24 omega-3 fatty acids 1,000 mg 1,000 mg PO QAM 05/14/24 05/14/24 Unknown capsule Past Medical History Medical History History of hypertension Per records History of BPH History of CVA (cerebrovascular accident) 05/08/24, [facility] admission, residual left sided head numbness Found to have significant carotid disease (reason for upcoming surgery) History of dysphagia History of Holter monitoring Placed by [facility] cardio 05/12/24 given recent CVA History of bladder stone Carotid arterial disease Neck CTA 05/08/24: Likely chronic hemodynamically significant ANASTASIYA stenosis. 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[facility] Hypothyroidism Chronic prostatitis Acid reflux Hx, no current issues History of colon polyps Urinary problem in male Self cath approximately 2 times per week History of kidney stones Tricuspid regurgitation Echo 04/2024: Mild TR Pulmonary hypertension "Mild" per records Aortic stenosis Echo 05/09/24: Moderate to severe aortic stenosis (MERY 0.75cm2, MG 23.6mmhg) Temporomandibular joint disorder Infrequent locking History of COVID-19 (08/2020) Cough > resolved Chronic sinusitis Past Family History Family History Brother Kidney stone Father , age 92 Cardiovascular disease Family history of prostate problems Cardiac disorder Stroke Sister Cancer Mother , age 93 Squamous cell carcinoma Other No family history of adverse response to anesthesia Past Surgical History Surgical History H/O knee surgery Right meniscus repair History of bilateral cataract extraction History of carpal tunnel surgery R/L History of colonoscopy (03/2024) History of esophageal dilatation History of esophagogastroduodenoscopy (EGD) (03/2024) History of tooth extraction Several, "only 6 teeth" remaining History of urologic surgery Unknown details Hx of cholecystectomy (2003) Social History Smoking Status: Never smoker Do You Dip or Chew Tobacco: No Hx Alcohol Use: No Hx Substance Use: No substance use type: does not use Lab Results Anesthesia Preop Results Results Anesthesia Widget: WBC 8.10 K/ul (4.8-10.8) 05/14/24 Hgb 12.6 g/dl (14.0-18.0) L 05/14/24 Hct 38.1 % (42.0-52.0) L 05/14/24 Plt 312 K/uL (130-400) 05/14/24 Na 137 mmol/L (136-145) 05/14/24 K 4.3 mmol/L (3.5-5.1) 05/14/24 Cl 101 mmol/L (98-107) 05/14/24 CO2 30 mmol/L (21-32) 05/14/24 BUN 22 mg/dl (6-23) 05/14/24 Creat 0.83 mg/dl (0.6-1.4) 05/14/24 Glucose Level 99 mg/dl (70-99(Fasting)) 05/14/24 PT 11.0 Seconds (9.0-12.0) 05/14/24 PTT 27 Seconds (21-31) 05/14/24 INR 1.0 (0.9-1.1) 05/14/24 HA1c 5.7 % (4.5-5.6) H 05/09/24 Urine Color See Comment 04/16/24 Urine Appearance Cloudy (Clear) A 04/16/24 Urine pH Not Reportable 04/16/24 Urine Specific [place] > 1.030 (1.000-1.030) H 04/16/24 Urine Protein Not Reportable 04/16/24 Urine Glucose (UA) Not Reportable 04/16/24 Urine Ketones Not Reportable 04/16/24 Urine Blood Not Reportable 04/16/24 Urine Nitrite Not Reportable 04/16/24 Urine Bilirubin Not Reportable 04/16/24 Urine Urobilinogen Not Reportable 04/16/24 Urine Leukocyte Esterase Not Reportable 04/16/24 Coronavirus OC43 (PCR) Not Detected (NotDetected) 04/28/24 Coronavirus HKU1 (PCR) Not Detected (NotDetected) 04/28/24 Coronavirus 229E (PCR) Not Detected (NotDetected) 04/28/24 COVID-19 PCR Not Detected (NotDetected) 04/28/24 Coronavirus NL63 (PCR) Not Detected (NotDetected) 04/28/24 Blood Type A Positive 05/14/24 Antibody Screen NEGATIVE 05/14/24 Testing Electrocardiogram Date: 05/08/24 NSR at 63bpm. RBBB. Date: 05/14/24 NSR at 72bpm. RBBB. unconfirmed report. Chest X-Ray Date: 05/08/24 FINDINGS: Cardiac silhouette is enlarged. Atherosclerosis of the aorta. No pneumothorax, pleural effusion or pulmonary edema. Unchanged mild right h emidiaphragmatic elevation. Linear right mid lung lateral opacity may represent scarring. Degenerative changes of the shoulders and spine. IMPRESSION: Cardiomegaly without acute process. Echocardiogram Date: 05/09/24 LV systolic function normal. EF 64.2%. Moderate to severe aortic stenosis (MERY 0.75cm2, AV MG 23.6mmhg). Small LV cavity. Moderate concentric LVH. Grade 1 diastolic dysfunction. LV wall motion is normal. Lipomatous hypertrophy of the interatrial septum noted. Interatrial septum is intact with no evidence for an ASD. Stress Test Date: 11/18/23 Myocardial ischemia by ECG and echocardiographic criteria at 92% MPHR. Mildly accelerated heart rate appropriate blood pressure response to exercise. Poor exercise tolerance. 3 METS workload. Rest echo with normal systolic function moderate to severe aortic stenosis. Other Testing Brain MRI Date: 05/08/24 IMPRESSION: Punctate foci of restricted diffusion in the right frontal lobe which may represent tiny embolic strokes. Neck CTA Date: 05/08/24 IMPRESSION: Likely chronic hemodynamically significant stenosis of the right internal carotid artery. 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 Head CTA Date: 05/08/24 IMPRESSION: No significant stenosis, occlusion, or aneurysm within the [place]. Head CT Date: 05/08/24 IMPRESSION: There is no hemorrhage, mass effect, or evidence of acute territorial ischemia by CT criteria. Head CT Date: 05/14/24 IMPRESSION: No acute intracranial abnormality. Mild chronic small vessel ischemic changes and cerebral volume loss. Head CTA Date: 05/14/24 IMPRESSION: No aneurysm or large vessel occlusion. Addendum: "d/w : c/w CTA head and neck 05/08/24, no change." Neck CTA Date: 05/14/24 IMPRESSION: 80-90% RIGHT ICA stenosis, including ulcerative atherosclerotic plaque. Nondominant, diminutive right vertebral artery, normal variant anatomy, though evaluation limited. No other dissection/occlusion/significant s tenosis. Addendum: "angelika/noemí Li: c/w CTA head and neck 05/08/24, no change."
--- NOTE | 2024-05-19 10:58 | Consultation ---
Date of Consultation May 19, 2024 History of Present Illness Reason for Consultation: Symptomatic carotid stenosis Attending Physician: Nicola Rucker MD History of Present Illness Patient was discharged prior to being seen Allergies Allergy/AdvReac Type Severity Reaction Status Date / Time No Known Allergies Allergy Verified 05/16/24 20:17 Home Medications Medication Instructions Recorded Confirmed Type aspirin 81 mg chewable tablet 1 tab PO QAM 12/06/19 05/16/24 History glucosamine-chondroitin 250 mg-200 1 tab PO QAM 12/06/19 05/16/24 History mg tablet uuvzmwmg-cfu-xvxal acid 0.4 1 tab PO QAM 12/06/19 05/16/24 History mg-lycopene 300 mcg-lutein 250 mcg tablet (Centrum Silver) calcitriol 0.25 mcg capsule 0.25 mcg PO QAM 12/24/23 05/16/24 History (Rocaltrol) levothyroxine 75 mcg tablet 75 mcg PO QAM #90 tabs 02/04/24 05/16/24 Rx atorvastatin 40 mg tablet 40 mg PO QAM 3 months #90 tabs 05/09/24 05/16/24 Rx clopidogrel 75 mg tablet 75 mg PO QAM 05/14/24 05/16/24 History lisinopril 5 mg tablet 5 mg PO QAM 05/14/24 05/16/24 History omega-3 fatty acids 1,000 mg 1,000 mg PO QAM 05/14/24 05/16/24 History capsule Patient History Medical History History of hypertension Per records History of BPH History of CVA (cerebrovascular accident) 05/08/24, [facility] admission, residual left sided head numbness Found to have significant carotid disease (reason for upcoming surgery) History of dysphagia History of Holter monitoring Placed by [facility] cardio 05/12/24 given recent CVA History of bladder stone Carotid arterial disease Neck CTA 05/08/24: Likely chronic hemodynamically significant ANASTASIYA stenosis. 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[place] [facility] Hypothyroidism Chronic prostatitis Acid reflux Hx, no current issues History of colon polyps Urinary problem in male Self cath approximately 2 times per week History of kidney stones Tricuspid regurgitation Echo 04/2024: Mild TR Pulmonary hypertension "Mild" per records Aortic stenosis Echo 05/09/24: Moderate to severe aortic stenosis (MERY 0.75cm2, MG 23.6mmhg) Temporomandibular joint disorder Infrequent locking History of COVID-19 (08/2020) Cough > resolved Chronic sinusitis Surgical History H/O knee surgery Right meniscus repair History of bilateral cataract extraction History of carpal tunnel surgery R/L History of colonoscopy (03/2024) History of esophageal dilatation History of esophagogastroduodenoscopy (EGD) (03/2024) History of tooth extraction Several, "only 6 teeth" remaining History of urologic surgery Unknown details Hx of cholecystectomy (2003) Family History Brother Kidney stone Father , age 92 Cardiovascular disease Family history of prostate problems Cardiac disorder Stroke Sister Cancer Mother , age 93 Squamous cell carcinoma Other No family history of adverse response to anesthesia Social History Smoking Status: Never smoker Second Hand Exposure: No; Do You Dip or Chew Tobacco: No; Hx Alcohol Use: No Hx Substance Use: No Preferred Language: Greek Communication Ability: Effective All Terrain Vehicle Technician Required: No Beliefs That Will Affect Care: None marital status: Current Living Situation: Spouse current occupational status: employed 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
[2024-05-21 12:04] LABS: Calcium 9.6 mg/dl (8.6-10.3); Potassium 4.6 mmol/L (3.5-5.1)
[2024-05-21] MEDS: SODIUM CHLORIDE 0.9% 1,000 ML IV SCH (12:08)
[2024-05-21 12:10] LABS: BUN Creatinine Ratio 28.1 (10-20); Creatinine Clr Calc Pharmacy 66.1 ml/min; Est GFR (African American) 93.6 ml/min; Est GFR (Non-African American) 80.8 ml/min
--- NOTE | 2024-05-21 12:26 | History & Physical Report ---
Date of Service May 21, 2024 History of Present Illness Primary Care Provider: Hakan Marin Name: KIRK MAST Patient Number: [id number] : 1945 Date of Service: 05/14/2024 Chief Complaint: _Consultation for right ICA stenosis HPI: _Mr. Mast is a notedly male who presents to Dr. Rucker's vascular surgery clinic today as a new patient in consultation for right ICA stenosis and a recent CVA. Patient states that he had no prior knowledge of any carotid stenosis. He unfortunately developed numbness and tingling to the left side of his face 1 week ago, and decided to go to the [facility] emergency department the following morning. Imaging performed at that time indicated a 95% right ICA stenosis, as well as a right sided infarct. Patient never had symptoms similar to this in the past. Patient states that he occasionally still gets some slight numbness left side of his face, but that it has improved considerably since last week. He denies any amaurosis, unilateral extremity weakness numbness or tingling, difficulty speaking or swallowing, or visible facial droop. He denies any changes in his cognitive status. This is confirmed by his . He denies significant headache, fever, chest pain, shortness of breath, bone pain, nausea, vomiting, rest pain, claudication, nonhealing wounds or ulcers, other complaints. He was seen by Dr. Rucker in the remote past regarding varicose veins of the bilateral lower extremities. Patient states that he continues to do well wearing the compression stockings as prescribed. Review of systems: A total of 14 systems were reviewed and are negative aside from what is related in his HPI Imaging: A CT angiogram performed at [facility] on 05/08/2024 demonstrates 95% stenosis of the right ICA as well as a chronic occlusion of right vertebral artery. An MRI of the brain performed on 05/08/2024 at [facility] demonstrates tiny embolic strokes to the right frontal lobe. Current Home Meds: (Last Updated 05/14 09:17) aspirin (aspirin 81 mg oral delayed release tablet) 81 mg PO Daily atorvastatin (atorvastatin 40 mg oral tablet) TAKE 1 TABLET BY MOUTH IN THE MORNING FOR 3 MONTHS. calcitriol (calcitriol 0.5 mcg oral capsule) 0.5 mcg PO Daily cholecalciferol (Vitamin D3) 5,000 Int_Unit PO Daily chondroitin-glucosamine (Osteo Bi-Flex) ciprofloxacin (ciprofloxacin 500 mg oral tablet) TAKE 1 TABLET BY MOUTH EVERY 12 HOURS FOR 3 DAYS clopidogrel (clopidogrel 75 mg oral tablet) TAKE 1 TABLET BY MOUTH EVERY DAY levothyroxine (levothyroxine 75 mcg (0.075 mg) oral tablet) 75 mcg PO Daily lisinopril (lisinopril 5 mg oral tablet) TAKE 1 TABLET BY MOUTH EVERY DAY multivitamin 1 tab PO Daily omega-3 polyunsaturated fatty acids ([place]-3 oral capsule) Allergies and Sensitivities: No Known Medication Allergies Past Medical History: Problems: Bilateral carotid artery stenosis Pulmonary HTN Aortic stenosis Complicated varicose veins Venous reflux Burning sensation of feet Hypothyroidism Hypertension Hyperparathyroidism Surgical history: Positive for cholecystectomy Family history: Positive for hypertension, cancer, carotid stenosis, stroke Social history: Negative for tobacco alcohol or drug use. He is and lives with his . OBJECTIVE Vitals: Last Updated 05/14/24 09:31 Date Temp BP Location Pulse RR SpO2 Pain 05/14/24 0 05/14/24 120/54 Right Arm 05/14/24 122/60 Left Arm 77 96 Vital Signs are the last 3 documented. No Orthostatic Data Available Height and Weight: Last Updated 04/22/24 10:56 Date BMI Wt(kg) Wt(lb) Method Ht(cm) (ft-in) Method 04/22/24 71.4 157 Standing Scale 03/25/24 71.4 157 Standing Scale 12/10/23 73 161 Standing Scale Heights and Weights are the last 3 documented. Physical Exam Constitutional: In general patient is a healthy appearing for age well-nourished well-developed elderly male no distress. He is alert and oriented without any focal deficits. His right and left carotid arteries do demonstrate a sound which is likely a projected aortic stenosis murmur. I am unable to appreciate a bruit. His heart is regular with a loud systolic ejection murmur. His lungs are decreased slightly but clear throughout. His abdomen is soft and nontender with normoactive bowel sounds in all 4 quadrants. Brachial and radial pulses are +3. Femoral pulses are +3. Lower extremity distal pulses are +2. He has brisk capillary refill and no sign of distal ischemia. ASSESSMENT: _ PLAN: _ 1 ) _severe right ICA stenosis with CVA Patient did have a CVA last week, and his symptoms are nearly resolved. He has a severe stenosis of the right ICA, which is likely the cause of his symptoms, as a ulceration is noted in the plaque. His imaging was reviewed by Dr. Rucker, who recommends that patient consider undergoing surgical intervention. The options of carotid endarterectomy versus transcarotid artery revascularization were discussed at length with the patient and his . The patient decides to proceed with TCAR. The risks benefits and alternatives, including but not limited to bleeding, infection, stroke, myocardial infarction, nerve damage, blood clots, and , were discussed at length with the patient, he expresses understanding and agreement to proceed. This will occur within the next week or so. Patient was already started on the aspirin Plavix and statin regimen that will be required to maintain patency of his stent. He was advised to continue taking these medications for at least a year postoperatively, and not to stop these medications for his upcoming TCAR procedure. Patient and his were given an informational pamphlet as well, and advised to call our office if they have any further questions. They are in agreement to this plan. Thank you for letting us participate in the care of this patient. I have personally spent__48_ minutes performing iixu-no-baqm and gif-wboi-fq-face activities on this date of service.Time does not include separately reported services. Activities Include: _x_ review of the medical record _x_ obtaining a history _x_ physical exam/evaluation x__ review labs x__ review radiology reports _x_ counseling/educating patient/family/caregiver __ discussion/referral to other healthcare professional x_ documenting care in the medical record __ independent interpretation of results _x_ communication of results to patient/family/caregiver x__ coordination of care Signature Line Electronic Signature on File CC: Duc Marin MD [address] [place] [id number] * CC: Ricardo De La Fuente DO [address] [facility] [address] [place] [id number] Electronically Reviewed/Signed by: Sheridan Morgan PA-C Author Signature Dt/Tm:05/14/2024 01:09 PM [facility] [place] [address], [facility] [address] [place], [place] [id number] LM Result Type: HVI Outpt Note Date of Service: May 14, 2024 12:57 EDT Authorization Status: Final Author or Import Date: GUILLERMINA Morgan Lynn on May 14, 2024 13:09 EDT Verified By: GUILLERMINA Morgan Lynn on May 14, 2024 13:09 EDT Encounter info: [id number], [place] [address], Clinic, 05/14/2024 - 05/14/2024 Allergies Allergy/AdvReac Type Severity Reaction Status Date / Time No Known Allergies Allergy Verified 05/21/24 11:33 Home Medications Medication Instructions Recorded Confirmed Type aspirin 81 mg chewable tablet 1 tab PO QAM 12/06/19 05/21/24 History glucosamine-chondroitin 250 mg-200 1 tab PO QAM 12/06/19 05/21/24 History mg tablet kljkbxeu-hmh-qjrnx acid 0.4 1 tab PO QAM 12/06/19 05/21/24 History mg-lycopene 300 mcg-lutein 250 mcg tablet (Centrum Silver) calcitriol 0.25 mcg capsule 0.25 mcg PO QAM 12/24/23 05/21/24 History (Rocaltrol) levothyroxine 75 mcg tablet 75 mcg PO QAM #90 tabs 02/04/24 05/21/24 Rx atorvastatin 40 mg tablet 40 mg PO QAM 3 months #90 tabs 05/09/24 05/21/24 Rx clopidogrel 75 mg tablet 75 mg PO QAM 05/14/24 05/21/24 History lisinopril 5 mg tablet 5 mg PO QAM 05/14/24 05/21/24 History omega-3 fatty acids 1,000 mg 1,000 mg PO QAM 05/14/24 05/21/24 History capsule Past Med/Surg History Problem List Aortic stenosis Echo 05/09/24: Moderate to severe aortic stenosis (MERY 0.75cm2, MG 23.6mmhg) Hypothyroidism Carotid arterial disease Neck CTA 05/08/24: Likely chronic hemodynamically significant ANASTASIYA stenosis. 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 History of CVA (cerebrovascular accident) 05/08/24, [facility] admission, residual left sided head numbness Found to have significant carotid disease (reason for upcoming surgery) Weakness of left upper extremity Anemia (Acute) Arm weakness (Acute) TIA (transient ischemic attack) (Acute) History of CVA (cerebrovascular accident) (Acute) Facial numbness (Acute) Encounter for pre-operative examination Urinary retention Urethral stricture Hypercalciuria (Acute) Vitamin D deficiency (Acute) Medical History History of hypertension Per records History of BPH History of CVA (cerebrovascular accident) 05/08/24, [facility] admission, residual left sided head numbness Found to have significant carotid disease (reason for upcoming surgery) History of dysphagia History of Holter monitoring Placed by [facility] cardio 05/12/24 given recent CVA History of bladder stone Carotid arterial disease Neck CTA 05/08/24: Likely chronic hemodynamically significant ANASTASIYA stenosis. 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[place] [facility] Hypothyroidism Chronic prostatitis Acid reflux Hx, no current issues History of colon polyps Urinary problem in male Self cath approximately 2 times per week History of kidney stones Tricuspid regurgitation Echo 04/2024: Mild TR Pulmonary hypertension "Mild" per records Aortic stenosis Echo 05/09/24: Moderate to severe aortic stenosis (MERY 0.75cm2, MG 23.6mmhg) Temporomandibular joint disorder Infrequent locking History of COVID-19 (08/2020) Cough > resolved Chronic sinusitis Surgical History H/O knee surgery Right meniscus repair History of bilateral cataract extraction History of carpal tunnel surgery R/L History of colonoscopy (03/2024) History of esophageal dilatation History of esophagogastroduodenoscopy (EGD) (03/2024) History of tooth extraction Several, "only 6 teeth" remaining History of urologic surgery Unknown details Hx of cholecystectomy (2003) Family History Brother Kidney stone Father , age 92 Cardiovascular disease Family history of prostate problems Cardiac disorder Stroke Sister Cancer Mother , age 93 Squamous cell carcinoma Other No family history of adverse response to anesthesia Social History Smoking Status: Never smoker Second Hand Exposure: No; Do You Dip or Chew Tobacco: No; Tobacco Cessation Education Requested by Patient: No Hx Alcohol Use: No Hx Substance Use: No Preferred Language: Yoruba Communication Ability: Effective Electron Beam Photo Mask Maker Required: No Beliefs That Will Affect Care: None marital status: Current Living Situation: Spouse current occupational status: employed 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
[2024-05-21] MEDS ORDERED: LIDOCAINE 2% 2 ML VIAL/AMP(20MG/ML) INFIL ONE (12:37)
[2024-05-21] MEDS ORDERED: fentaNYL citrate PF 100 MCG/2 ML VIAL ONE ×2 (12:37→14:28)
[2024-05-21] MEDS ORDERED: PROPOFOL IV EMULSION 10 MG/ML 20 ML VIAL IV ONE (12:37)
[2024-05-21] MEDS ORDERED: ONDANSETRON INJ 2 MG/ML 2 ML VIAL ONE (12:37)
--- NOTE | 2024-05-21 13:30 | History & Physical Bridge Note ---
Date of Service May 21, 2024 History & Physical Bridge Note I have examined the patient, reviewed the History & Physical and in the interval since the performance of the History & Physical I have noted the following changes of clinical significance: no changes noted
[2024-05-21] MEDS ORDERED: ePHEDrine sulfate 50 MG/ML AMP IV PRN (13:37)
[2024-05-21] MEDS ORDERED: ATROPINE SULFATE 0.1 MG/ML 10ML SYR IV PRN (13:37)
[2024-05-21] MEDS ORDERED: PROMETHAZINE HCL 6.25 MG in SODIUM CHLORIDE 0.9% 50 ML IV PRN (13:37)
[2024-05-21] MEDS ORDERED: fentaNYL citrate PF 100 MCG/2 ML VIAL IV PRN (13:37)
[2024-05-21] MEDS ORDERED: ONDANSETRON INJ 2 MG/ML 2 ML VIAL IV PRN (13:37)
[2024-05-21] MEDS ORDERED: PHENYLEPHRINE 100MCG/ML 10ML SYR IV ONE ×2 (13:45→15:37)
[2024-05-21] MEDS ORDERED: PHENYLEPHRINE HCL 25 MG/250 ML NSS IV ONE (13:45)
[2024-05-21] MEDS: CEFAZOLIN 2,000 MG/15 ML SYR IV SCH (14:17)
[2024-05-21] MEDS ORDERED: HEPARIN SOD (PORCINE) 1000 UNIT/ML ONE (14:31)
[2024-05-21] MEDS ORDERED: ROCURONIUM BROMIDE 10 MG/ML 5 ML VIAL IV ONE (14:31)
--- OUTSIDE RECORDS SUMMARY | 2024-05-21 14:39 | External Medical Summary | Continuity of Care Document ---
Author Name Unknown Organization [facility] [address] Address [address] [place] [place], [place] [id number] Care Team Providers Care Special Officer Name Role Phone Duc Marin III Primary Care Physician [phone] [id number] Date(s): 05/16/24 - 05/16/[address] [place], [place] [id number] [place] Discharge Disposition: Home or Self Care Attending Physician: MD [facility] Referring Physician: DO Loyd Ryan M Allergies, Adverse Reactions, Alerts No Known Medication [...] PO, Daily Start Date: 03/10/21 Status: Ordered Seymour-3 oral capsule Start: 03/10/21 3:38:00 PM EDT, [...] Referring Member Role: Primary Care Provider Address: [address] [address] [place] Name: GUILLERMINA Morgan Lynn Position: Physician Supervisor Metal Hanging Exempt - Vasc Surg Member Role: Lifetime Relationship Address: [address] [place] [address] [place]
[2024-05-21] MEDS ORDERED: GLYCOPYRROLATE 0.2 MG/ML VIAL ONE (14:40)
[2024-05-21] MEDS ORDERED: ePHEDrine sulfate 50 MG/5 ML SYR ONE (14:41)
[2024-05-21] MEDS ORDERED: SUGAMMADEX SODIUM 200 MG/2 ML VIAL IV ONE (14:51)
[2024-05-21] MEDS ORDERED: ATROPINE SULFATE 0.4 MG/ML 2ML SYR IV ONE (15:15)
[2024-05-21] MEDS ORDERED: PROTAMINE SULFATE 10 MG/ML 5 ML VIAL IV ONE (15:25)
[2024-05-21] MEDS: THROMBIN FOR SOLN 20000 UNIT KIT ONE (15:28)
[2024-05-21] MEDS: GELATIN SPONGE SZ 100 ONE (15:28)
[2024-05-21] MEDS: ceFAZolin 330 MG/ML 1 GM VIAL ONE (15:35)
[2024-05-21] MEDS: VISIPAQUE IV PRN (15:36)
[2024-05-21] MEDS: BUPIVACAINE/EPINEPHRINE 0.5% MPF 1:200,000 30 ML VIAL ONE (15:38)
--- NOTE | 2024-05-21 15:46 | Post Operative Brief Note ---
Immediate Post Op Note Date of Surgery May 21, 2024 Pre & Post Diagnosis Operation Date: 05/21/24 13:00 Pre-Op Diagnosis: Symptomatic Right Carotid Stenosis Post-Op Diagnosis: Symptomatic Right Carotid Stenosis I identified the patient and participated in the time-out.: Yes Procedure Operation Date: 05/21/24 13:00 Actual Procedures p Right Transcarotid Artery Revascularization(Right), Ultrasound localization of right common femoral vein - Nicola Rucker MD Surgeon Nicola Rucker MD Cytology Laboratory Manager MD Sameer Estimated Blood Loss 10 Findings Consistent with Post-Op Diagnosis Anesthesia Type General Complications none Disposition Accompanied Patient To Recovery: No Disposition: Recovery Room
--- NOTE | 2024-05-21 15:56 | Operative Report ---
Post Operative Report Pre & Post Diagnosis Operation Date: 05/21/24 13:00 Pre-Op Diagnosis: Symptomatic Severe Right Carotid Artery Stenosis Post-Op Diagnosis: Symptomatic Severe Right Carotid Artery Stenosis I identified the patient and participated in the time-out.: Yes Procedure Operation Date: 05/21/24 13:00 Actual Procedures p Right transcarotid artery revascularization, ultrasound right common vein.(Right) - Nicola Rucker MD Surgeon Nicola Rucker MD Marine Engine Machinist Apprentice MD Sameer Estimated Blood Loss 10 Findings See Below Right common and internal carotid artery stenosis visualized on angiogram, improved after balloon angioplasty and stent. Specimens None Drains None Anesthesia Type General Complications None Disposition Accompanied Patient To Recovery: Yes Indications 78 year old male with multiple episodes of TIA who was found to have severe right carotid artery stenosis. He was a candidate for transcarotid artery revascularization and after risks and benefits were discussed, consented to the procedure. Description of Procedure The patient was brought to the operating room, where lines were placed and general anesthesia was accomplished by anesthesia team. A shoulder roll was placed and the neck was rotated towards the left side of the patient. The right neck and bilateral groins were prepped and patient was draped in the usual sterile fashion. A timeout was performed identifying the correct patient by name, procedure, and location of procedure and all were in agreement. A 4cm transverse incision was made between the sternal and clavicular heads of the sternocleidomastoid muscle. The muscle heads were retracted to each side and the carotid sheath was identified. Using blunt dissection, the carotid sheath was opened and 3cm of common carotid artery (CCA) were isolated. Umbilical tape was placed around the proximal CCA under direct visualization. A 5-0 prolene U- stitch was pre-placed in the anterior wall of the CCA to facilitate hemostasis after removal of the arterial sheath at completion of the procedure. The patient was given 8,000 units of IV heparin. The contralateral (left) common femoral vein was accessed under ultrasound guidance, using an access needle and a wire. However, there was resistance met with the wire after a few centimeters of wire was introduced. We removed the left femoral vein access needle and held manual pressure. On the ipsilateral (right) groin, the femoral vein was right behind the common femoral artery and the access needle was introduced into the common femoral artery while attempting to access the femoral vein. A wire was placed in the artery and a 4F sheath placed, given patient was already on therapeutic heparin. We then obtained access into the right common femoral vein lower down in the groin. The venous return sheath was advanced into the right common femoral vein over the 0.035" w max. Blood was aspirated from the flow line and the sheath was flushed with heparinized saline.The sheath was secured to the patient's skin with a 2-0 silk stitch to maintain position in the vessel. ACT was confirmed to be above 250 seconds prior to carotid access. A 4-Iraqi non-stiffened micropuncture set was used, puncturing the artery with a 21G needle through the pre-placed U-stitch while holding gentle traction on the umbilical tape to stabilize the CCA within the incision. The micropuncture wire was advanced 3-4cm into the CCA and the 21G needle removed. The micropuncture sheath was advanced 3cm into the CCA and the wire and dilator were removed. A cerebral angiogram was obtained after ensuring there were no air bubbles in the system. The J-tipped guidewire was inserted and we stopped short of the plaque at the common femoral artery. After micropuncture sheath removal, the transcarotid arterial sheath was advanced to the 3cm marker and the 0.035" wire and dilator were removed. Arterial sheath position was assessed under fluoroscopy. The arterial sheath was sutured to the patient at two sites. The Flow Controller was connected to the transcarotid arterial sheath, prepared by passively allowing arterial blood to backfill the line and then it was connected to the venous return sheath. The CCA was clamped proximally to ensure active flow reversal. Heparinized saline was delivered into the venous flow line to confirm adequate flow reversal. A TCAR timeout was performed, heart rate was >70bpm and systolic BP was >140mmHg. Patient had been pretreated with glycopyrrolate and atropine was available. The lesion was crossed with an 0.014" guidewire and pre-dilation balloon angioplasty was performed with a 5x35mm [employer] rapid exchange balloon to 12 atmospheres for about 3 seconds. An 8- 6x40mm tapered ENROUTE transcarotid stent was placed, sized to the right CCA and ICA. Post-dilation balloon angioplasty was performed with a 5x25mm balloon. A completion angiogram was performed showing appropriate stent position with good wall apposition. At TCAR case completion, antegrade flow was restored by releasing the clamp on the CCA and closing the stopcocks to the flow lines. The total clamp time was 12 minutes. The transcarotid arterial sheath was removed and the pre-placed suture was tied. 25mg of protamine were given. A repeat ACT was obtained and was <140. The venous return sheath on the right groin was removed and hemostasis achieved with manual compression. Subsequently, the right common femoral artery 4F sheath was removed and manual pressure held until adequate hemostasis was obtained. The neck incision was irrigated with antibiotic solution and was hemostatic before closure. 12cc of 0.25% marcaine with epinephrine were used for local anesthesia around skin edges. The platysma was approximated with 3-0 Vicryl running suture and the skin was closed with 4-0 running Vicryl suture and covered with Dermabond. The patient tolerated the procedure well and was extubated in the operating room. He was moving all four extremities to command prior to transfer to the recovery room. All counts were correct at the end of the procedure. Fluoroscopy time was 4.3minutes, radiation dose was 33.4 mGy and 15cc of contrast were used. Dr. Rucker was present and scrubbed for the entire procedure. I attest to the content of the Intraoperative Record and any orders documented therein. Any exceptions are noted below.
--- NOTE | 2024-05-21 16:49 | Anesthesiology Progress Note ---
Date of Service May 21, 2024 Anesthesia Post Procedure Vital Signs Vital Signs: Temp Pulse Resp BP BP Pulse Ox O2 Del Method 05/21/24 11:36 36.7 C 71 20 165/76 H 138/75 98 Room Air Transfer of Care Handoff Completed per policy Notes Mental Status: alert / awake / arousable Patient Amnestic to Procedure: Yes Nausea / Vomiting: adequately controlled Pain: adequately controlled Airway Patency, RR, SpO2: stable & adequate BP & HR: stable & adequate Hydration State: stable & adequate Anesthetic Complications: no major complications apparent
[2024-05-21 16:57] LABS: Hematocrit (blood only) 30.3 % (42.0-52.0); Hemoglobin 10.1 g/dl (14.0-18.0)
[2024-05-21] MEDS: PHENYLEPHRINE/NSS 25 MG/250 ML BAG IV PRN (18:20)
[2024-05-21] MEDS ORDERED: STAT IV Infusion **Titration per Protocol STA (18:40)
[2024-05-21] MEDS: LACTATED RINGER'S 1,000 ML IV SCH (18:52)
[2024-05-21] MEDS: ceFAZolin 2000MG 2,000 MG/15 ML SYR IV SCH (21:07)
[2024-05-22] MEDS: LEVOTHYROXINE SODIUM 75 MCG TABLET PO SCH (06:23)
[2024-05-22] MEDS: CALCITRIOL 0.25 MCG CAPSULE PO SCH (08:40)
[2024-05-22] MEDS: CLOPIDOGREL BISULFATE 75 MG TAB PO SCH (08:40)
[2024-05-22] MEDS: OMEGA-3 (PURIFIED FISH OIL) 1 GM CAP PO SCH (08:41)
[2024-05-22] MEDS: ATORVASTATIN 40 MG TAB PO SCH (08:41)
[2024-05-22] MEDS: CEROVITE ADV FORMULA TAB PO SCH (08:42)
[2024-05-22] MEDS: ASPIRIN 81 MG CHEW PO SCH (08:42)
[2024-05-22] MEDS: PSEUDOEPHEDRINE HCL 30 MG TAB PO SCH (08:43)
[2024-05-22] MEDS: lisinopril 5 MG TAB PO SCH (10:33)
--- NOTE | 2024-05-22 11:04 | Surgery Progress Note ---
Date of Service May 22, 2024 Assessment & Plan (1) Carotid arterial disease: Plan: Pt now POD #1 after R TCAR, doing well postop. Still with persistent hypotension and mild bradycardia. Phenylephrine drip being titrated, oral sudafed ordered. Admission and Anticipated Discharge Date Admission Date: May 21, 2024 Subjective 78 yo m POD #1 after R TCAR, seen in f/u today. Pt states feeling tired, mild pain in R neck incision. Taking PO well, no nausea, chest pain, SOB, other complaints. Has been hypotensive since procedure yesterday, currently on phenylephrine, titrating off. Review of Systems Review of Systems: All systems reviewed & are unremarkable except as noted in HPI & below Physical Exam Constitutional: WD/WN, vitals as above cooperative; not in distress Neck: R supraclavicular incision C/D/I, mild local ecchymosis, edema, tenderness. No large hematoma noted. Respiratory: normal respiratory effort Auscultation: lungs clear to auscultation bilaterally and + diminished lung sounds Cardiovascular: Rate/Rhythm: regular rhythm and + bradycardic (mild) Vessels: posterior tibial pulses present, dorsalis pedis pulses present and radial pulses present; + abnormal peripheral pulses Extremities: normal capillary refill; no edema Gastrointestinal (Abdomen): Inspection/Auscultation: abdomen normal to inspection and normal bowel sounds Percussion/Palpation: abdomen soft; abdomen nontender Musculoskeletal: no cyanosis or clubbing, extremities motor strength 5/5 Skin: no rashes, warm and dry L groin puncture soft, no firm hematoma noted. R groin puncture soft, no hematoma Neurologic: moves all extremities and awake; no focal motor deficits and not confused Psychiatric: A+Ox3, euthymic affect Results & Data Vital Signs (Past 12 Hours) Vital Signs Temp Pulse Pulse Resp BP BP BP 05/22/24 10:30 57 L 18 05/22/24 10:00 60 19 05/22/24 10:00 36.9 C 51 L 18 106/32 L 05/22/24 09:33 52 L 18 05/22/24 09:30 93/41 L 05/22/24 09:27 53 L 20 05/22/24 09:24 56 L 18 05/22/24 09:12 49 L 19 05/22/24 09:09 45 L 19 05/22/24 09:00 85/38 L 05/22/24 09:00 05/22/24 08:33 46 L 19 05/22/24 08:30 100/40 L 05/22/24 08:00 94/44 L 05/22/24 08:00 50 L 05/22/24 08:00 36.9 C 49 L 05/22/24 07:00 49 L 18 05/22/24 07:00 89/37 L 05/22/24 07:00 36.9 C 60 20 90/42 L 05/22/24 06:30 52 L 19 120/31 L 05/22/24 06:00 36.5 C 50 L 19 110/30 L 05/22/24 05:00 55 L 17 110/35 L 05/22/24 04:00 36.5 C 54 L 23 102/39 L 115/36 L 05/22/24 03:30 51 L 18 124/36 L 05/22/24 03:00 52 L 18 92/40 L 118/36 L 05/22/24 02:30 55 L 19 114/37 L 05/22/24 02:00 48 L 19 108/43 L 113/34 L 05/22/24 01:30 53 L 16 140/43 L 05/22/24 01:00 36.5 C 54 L 18 100/42 L 114/33 L 05/22/24 00:30 51 L 20 96/46 L 05/22/24 00:00 36.8 C 61 19 05/21/24 23:33 50 L 05/21/24 23:23 56 L 19 05/21/24 23:02 54 L 17 Pulse Ox O2 Del Method 05/22/24 10:30 98 05/22/24 10:00 98 05/22/24 10:00 98 Room Air 05/22/24 09:33 99 05/22/24 09:30 05/22/24 09:27 98 05/22/24 09:24 98 05/22/24 09:12 99 05/22/24 09:09 99 05/22/24 09:00 05/22/24 09:00 Room Air 05/22/24 08:33 97 05/22/24 08:30 05/22/24 08:00 05/22/24 08:00 05/22/24 08:00 05/22/24 07:00 98 05/22/24 07:00 05/22/24 07:00 97 Room Air 05/22/24 06:30 97 Room Air 05/22/24 06:00 98 Room Air 05/22/24 05:00 100 Room Air 05/22/24 04:00 98 Room Air 05/22/24 03:30 98 Room Air 05/22/24 03:00 99 Room Air 05/22/24 02:30 98 Room Air 05/22/24 02:00 99 Room Air 05/22/24 01:30 98 Room Air 05/22/24 01:00 97 Room Air 05/22/24 00:30 99 05/22/24 00:00 98 05/21/24 23:33 05/21/24 23:23 99 05/21/24 23:02 98
[2024-05-22] MEDS: oxyCODONE/ACETAMINOPHEN 5mg/325mg TAB PO PRN (22:44)
[2024-05-23 05:26] VITALS: RESP 18
[2024-05-23 06:27] VITALS: TEMP 97.7
[2024-05-23 08:13] VITALS: O2SAT 96
--- NOTE | 2024-05-23 08:51 | Surgery Progress Note ---
Date of Service May 23, 2024 Assessment & Plan (1) Carotid arterial disease: Plan: Pt now POD #2 after R TCAR, doing well postop. Now off of pressors. Will D/C today with sudafed for 10 days. Admission and Anticipated Discharge Date Admission Date: May 21, 2024 Subjective 78 yo m POD #2 after R TCAR, seen in f/u today. He has no complaints. No focal deficits. Physical Exam Constitutional: WD/WN, vitals as above Neck: trachea midline Respiratory: normal respiratory effort; no respiratory distress Cardiovascular: RRR, no murmur, no edema Skin: + incision (dry and clean) Neurologic: CN's II-XI intact bilaterally and moves all extremities Psychiatric: A+Ox3, euthymic affect Results & Data Vital Signs (Past 12 Hours) Vital Signs Temp Pulse Pulse Resp BP BP Pulse Ox 05/23/24 07:00 59 L 18 96 05/23/24 06:00 61 20 05/23/24 06:00 36.5 C 70 18 110/50 L 98 05/23/24 05:00 88/42 L 05/23/24 05:00 88/42 L 05/23/24 05:00 88/42 L 05/23/24 05:00 58 L 18 95 05/23/24 05:00 57 L 18 112/37 L 98 05/23/24 04:30 89/42 L 05/23/24 04:30 62 18 05/23/24 04:00 88/44 L 05/23/24 04:00 88/44 L 05/23/24 04:00 88/44 L 05/23/24 04:00 62 17 94 05/23/24 04:00 60 20 105/35 L 95 05/23/24 03:30 92/45 L 05/23/24 03:30 92/45 L 05/23/24 03:06 64 20 94 05/23/24 03:00 61 20 95 05/23/24 03:00 84/44 L 05/23/24 03:00 60 20 108/36 L 95 05/23/24 02:30 89/46 L 05/23/24 02:01 106/56 L 05/23/24 02:01 106/56 L 05/23/24 02:01 106/56 L 05/23/24 02:00 64 21 94 05/23/24 02:00 63 18 110/35 L 96 05/23/24 01:30 89/40 L 05/23/24 01:15 82 19 93 05/23/24 01:03 62 18 94 05/23/24 01:00 90/49 L 05/23/24 01:00 90/49 L 05/23/24 01:00 90/49 L 05/23/24 01:00 74 16 113/42 L 96 05/23/24 00:36 67 21 94 05/23/24 00:30 94/45 L 05/23/24 00:09 72 19 94 05/23/24 00:03 68 21 94 05/23/24 00:00 88/47 L 05/23/24 00:00 88/47 L 05/23/24 00:00 88/47 L 05/23/24 00:00 36.6 C 65 18 105/57 L 95 05/22/24 23:57 69 24 94 05/22/24 23:56 63 05/22/24 23:30 95/53 L 05/22/24 23:30 95/53 L 05/22/24 23:30 95/53 L 05/22/24 23:30 95/53 L 05/22/24 23:03 63 21 95 05/22/24 23:00 95/51 L 05/22/24 23:00 95/51 L 05/22/24 23:00 95/51 L 05/22/24 23:00 72 15 113/37 L 97 05/22/24 22:51 66 20 95 05/22/24 22:30 94/45 L 05/22/24 22:30 94/45 L 05/22/24 22:24 69 21 97 05/22/24 22:03 73 20 97 05/22/24 22:00 92/44 L 05/22/24 22:00 66 20 110/36 L 95 05/22/24 21:00 36.6 C 64 21 119/33 L 98 O2 Del Method 05/23/24 07:00 05/23/24 06:00 05/23/24 06:00 Room Air 05/23/24 05:00 05/23/24 05:00 05/23/24 05:00 05/23/24 05:00 05/23/24 05:00 Room Air 05/23/24 04:30 05/23/24 04:30 05/23/24 04:00 05/23/24 04:00 05/23/24 04:00 05/23/24 04:00 05/23/24 04:00 Room Air 05/23/24 03:30 05/23/24 03:30 05/23/24 03:06 05/23/24 03:00 05/23/24 03:00 05/23/24 03:00 Room Air 05/23/24 02:30 05/23/24 02:01 05/23/24 02:01 05/23/24 02:01 05/23/24 02:00 05/23/24 02:00 Room Air 05/23/24 01:30 05/23/24 01:15 05/23/24 01:03 05/23/24 01:00 05/23/24 01:00 05/23/24 01:00 05/23/24 01:00 Room Air 05/23/24 00:36 05/23/24 00:30 05/23/24 00:09 05/23/24 00:03 05/23/24 00:00 05/23/24 00:00 05/23/24 00:00 05/23/24 00:00 Room Air 05/22/24 23:57 05/22/24 23:56 05/22/24 23:30 05/22/24 23:30 05/22/24 23:30 05/22/24 23:30 05/22/24 23:03 05/22/24 23:00 05/22/24 23:00 05/22/24 23:00 05/22/24 23:00 Room Air 05/22/24 22:51 05/22/24 22:30 05/22/24 22:30 05/22/24 22:24 05/22/24 22:03 05/22/24 22:00 05/22/24 22:00 Room Air 05/22/24 21:00 Room Air
--- NOTE | 2024-05-23 09:00 | Discharge Summary ---
Date of Service May 23, 2024 Admission HPI Per Admitting Provider Name: KIRK MAST Patient Number: [id number] : 1945 Date of Service: 05/14/2024 Chief Complaint: _Consultation for right ICA stenosis HPI: _Mr. Mast is a notedly male who presents to Dr. Rucker's vascular surgery clinic today as a new patient in consultation for right ICA stenosis and a recent CVA. Patient states that he had no prior knowledge of any carotid stenosis. He unfortunately developed numbness and tingling to the left side of his face 1 week ago, and decided to go to the [facility] emergency department the following morning. Imaging performed at that time indicated a 95% right ICA stenosis, as well as a right sided infarct. Patient never had symptoms similar to this in the past. Patient states that he occasionally still gets some slight numbness left side of his face, but that it has improved considerably since last week. He denies any amaurosis, unilateral extremity weakness numbness or tingling, difficulty speaking or swallowing, or visible facial droop. He denies any changes in his cognitive status. This is confirmed by his . He denies significant headache, fever, chest pain, shortness of breath, bone pain, nausea, vomiting, rest pain, claudication, nonhealing wounds or ulcers, other complaints. He was seen by Dr. Rucker in the remote past regarding varicose veins of the bilateral lower extremities. Patient states that he continues to do well wearing the compression stockings as prescribed. Review of systems: A total of 14 systems were reviewed and are negative aside from what is related in his HPI Imaging: A CT angiogram performed at [facility] on 05/08/2024 demonstrates 95% stenosis of the right ICA as well as a chronic occlusion of right vertebral artery. An MRI of the brain performed on 05/08/2024 at [facility] demonstrates tiny embolic strokes to the right frontal lobe. Current Home Meds: (Last Updated 05/14 09:17) aspirin (aspirin 81 mg oral delayed release tablet) 81 mg PO Daily atorvastatin (atorvastatin 40 mg oral tablet) TAKE 1 TABLET BY MOUTH IN THE MORNING FOR 3 MONTHS. calcitriol (calcitriol 0.5 mcg oral capsule) 0.5 mcg PO Daily cholecalciferol (Vitamin D3) 5,000 Int_Unit PO Daily chondroitin-glucosamine (Osteo Bi-Flex) ciprofloxacin (ciprofloxacin 500 mg oral tablet) TAKE 1 TABLET BY MOUTH EVERY 12 HOURS FOR 3 DAYS clopidogrel (clopidogrel 75 mg oral tablet) TAKE 1 TABLET BY MOUTH EVERY DAY levothyroxine (levothyroxine 75 mcg (0.075 mg) oral tablet) 75 mcg PO Daily lisinopril (lisinopril 5 mg oral tablet) TAKE 1 TABLET BY MOUTH EVERY DAY multivitamin 1 tab PO Daily omega-3 polyunsaturated fatty acids ([place]-3 oral capsule) Allergies and Sensitivities: No Known Medication Allergies Past Medical History: Problems: Bilateral carotid artery stenosis Pulmonary HTN Aortic stenosis Complicated varicose veins Venous reflux Burning sensation of feet Hypothyroidism Hypertension Hyperparathyroidism Surgical history: Positive for cholecystectomy Family history: Positive for hypertension, cancer, carotid stenosis, stroke Social history: Negative for tobacco alcohol or drug use. He is and lives with his . OBJECTIVE Vitals: Last Updated 05/14/24 09:31 Date Temp BP Location Pulse RR SpO2 Pain 05/14/24 0 05/14/24 120/54 Right Arm 05/14/24 122/60 Left Arm 77 96 Vital Signs are the last 3 documented. No Orthostatic Data Available Height and Weight: Last Updated 04/22/24 10:56 Date BMI Wt(kg) Wt(lb) Method Ht(cm) (ft-in) Method 04/22/24 71.4 157 Standing Scale 03/25/24 71.4 157 Standing Scale 12/10/23 73 161 Standing Scale Heights and Weights are the last 3 documented. Physical Exam Constitutional: In general patient is a healthy appearing for age well-nourished well-developed elderly male no distress. He is alert and oriented without any focal deficits. His right and left carotid arteries do demonstrate a sound which is likely a projected aortic stenosis murmur. I am unable to appreciate a bruit. His heart is regular with a loud systolic ejection murmur. His lungs are decreased slightly but clear throughout. His abdomen is soft and nontender with normoactive bowel sounds in all 4 quadrants. Brachial and radial pulses are +3. Femoral pulses are +3. Lower extremity distal pulses are +2. He has brisk capillary refill and no sign of distal ischemia. ASSESSMENT: _ PLAN: _ 1 ) _severe right ICA stenosis with CVA Patient did have a CVA last week, and his symptoms are nearly resolved. He has a severe stenosis of the right ICA, which is likely the cause of his symptoms, as a ulceration is noted in the plaque. His imaging was reviewed by Dr. Rucker, who recommends that patient consider undergoing surgical intervention. The options of carotid endarterectomy versus transcarotid artery revascularization were discussed at length with the patient and his . The patient decides to proceed with TCAR. The risks benefits and alternatives, including but not limited to bleeding, infection, stroke, myocardial infarction, nerve damage, blood clots, and , were discussed at length with the patient, he expresses understanding and agreement to proceed. This will occur within the next week or so. Patient was already started on the aspirin Plavix and statin regimen that will be required to maintain patency of his stent. He was advised to continue taking these medications for at least a year postoperatively, and not to stop these medications for his upcoming TCAR procedure. Patient and his were given an informational pamphlet as well, and advised to call our office if they have any further questions. They are in agreement to this plan. Thank you for letting us participate in the care of this patient. I have personally spent__48_ minutes performing [id number] and [id number]-[id number]-[id number] activities on this date of service.Time does not include separately reported services. Activities Include: _x_ review of the medical record _x_ obtaining a history _x_ physical exam/evaluation x__ review labs x__ review radiology reports _x_ counseling/educating patient/family/caregiver __ discussion/referral to other healthcare professional x_ documenting care in the medical record __ independent interpretation of results _x_ communication of results to patient/family/caregiver x__ coordination of care Signature Line Electronic Signature on File CC: Duc Marin MD [address] [place] [id number] * CC: Ricardo De La Fuente DO [address] [facility] [address] [place] [address] Electronically Reviewed/Signed by: Sheridan Morgan PA-C Author Signature Dt/Tm:05/14/2024 01:[address] [facility] [place] [address] [facility] [address] [place] [id number] LM Result Type: HVI Outpt Note Date of Service: May 14, 2024 12:57 EDT Authorization Status: Final Author or Import Date: GUILLERMINA Morgan Lynn on May 14, 2024 13:09 EDT Verified By: GUILLERMINA Morgan Lynn on May 14, 2024 13:09 EDT Encounter info: [id number], [facility], Clinic, 05/14/2024 - 05/14/2024 Admission Exam Per Admitting Provider Constitutional: In general patient is a healthy appearing for age well-nourished well-developed elderly male no distress. He is alert and oriented without any focal deficits. His right and left carotid arteries do demonstrate a sound which is likely a projected aortic stenosis murmur. I am unable to appreciate a bruit. His heart is regular with a loud systolic ejection murmur. His lungs are decreased slightly but clear throughout. His abdomen is soft and nontender with normoactive bowel sounds in all 4 quadrants. Brachial and radial pulses are +3. Femoral pulses are +3. Lower extremity distal pulses are +2. He has brisk capillary refill and no sign of distal ischemia. Principal Diagnosis Symptomatic right internal carotid artery stenosis Discharge Exam Constitutional WD/WN, vitals as above Neck trachea midline Respiratory normal respiratory effort; no respiratory distress Cardiovascular RRR, no murmur, no edema Skin + incision (dry and clean) Neurologic CN's II-XI intact bilaterally and moves all extremities Psychiatric A+Ox3, euthymic affect Discharge Data Allergies Allergy/AdvReac Type Severity Reaction Status Date / Time No Known Allergies Allergy Verified 05/21/24 11:33 Procedures Performed Operation Date: 05/21/24 13:00 Actual Procedures p Right transcarotid artery revascularization, ultrasound right common vein.(Right) - Nicola Rucker MD Ordered Studies 05/21/24 07:15 EV angio carotid cerv RT Routine US EV guide vascular access Routine Hospital Course (1) Carotid arterial disease: Pt now POD #2 after R TCAR, doing well postop. Now off of pressors. Will D/C today with sudafed for 10 days. Total Time Total Time Spent Total Time Spent (In Minutes): 0 Discharge Plan Discharge Items Patient Disposition: Home - Self-Care Reason For Visit: Right Carotid Stenosis Discharge Diagnosis: Symptomatic right carotid stenosis Activity: Per Instructions section Non-emergency contact: Surgeon Call non-emergency contact if: your temperature is above 101.5, your wound has increased redness, your wound has increased drainage and your wound pain has increased Follow-up/Referrals: Hakan Marin [Primary Care Provider] - Diet: Heart Healthy Addtl Attending Provider Instructions: SPECIAL CARE INSTRUCTIONS: Medications: * Continue to take Aspirin, plavix and statin as directed. Incision Care: * You may shower, but do not rub incision. You may let the warm soapy water run over it. Be sure to dry the incision well after bathing. * Do not shave directly over the incision until it is healed. * DO NOT IMMERSE THE INCISION IN A TUB/POOL/etc. UNTIL HEALED. Restrictions: * Do not drive for at least one week or if you are still taking any narcotic pain medication. * Do not lift anything heavier than a gallon of milk for one week after going home. Possible Complications: * Numbness - It is normal to have some numbness around the incision. Numbness can extend beyond the incision to areas of the neck, ear and face. The numbness is due to bruising of nerves during the surgery and will gradually improve over a period of months. * Hoarseness/Difficulty Speaking and Swallowing - The bruising of nerves in the neck can also cause a hoarse voice, difficulty speaking or swallowing. This may improve over time, HOWEVER, if it continues for more than a few days please contact our office ([phone]). * Excessive Swelling - There will be some swelling immediately after surgery which usually resolves within one week. If you notice that the swelling is g etting worse, notify your surgeon ([phone]). * Drainage/Bleeding - If there is any drainage or bleeding, it should be a very small amount (less than a teaspoon per day). If you have excessive bleeding or drainage from the incision, call your surgeon ([phone]) right away. ACTIVATION OF EMERGENCY MEDICAL SYSTEM: Call 911, immediately, if you experience any of the following: Warning Signs and Symptoms of Stroke: * Sudden numbness or weakness of the face, arm or leg, especially on one side of the body * Sudden confusion, trouble speaking or understanding * Sudden trouble seeing in one or both eyes * Sudden trouble walking, dizziness, loss of balance or coordination * Sudden severe headache with no cause Do not delay calling 911 if you experience any warning signs or symptoms of a stroke. Delay in seeking medical attention may affect what treatments can be given to you. Risk Factors for Stroke: You can reduce your chances of stroke by working with your medical provider to adopt a healthy lifestyle. Some specific ways to lower your chance of stroke are: * If you are a smoker, now is the time to stop smoking cigarettes * If you are diabetic, improve the control of your blood sugars * Avoid excessive amounts of alcohol * Control high blood pressure * Lose weight if you are overweight * Be sure to lead an active lifestyle * Eat a healthy diet low in salt, cholesterol and fat You should know about other risk factors for stroke that you are unable to control. These include: * Age 55 years or older * Male gender * Certain racial groups: , or / * Family History of Stroke, Mini stroke or Heart Attack * Sickle Cell Disease You will be receiving a call from the Vascular Surgery Nurse after you are discharged. FOLLOW UP VISIT: It is important for you to keep your follow up appointments with your medical provider. Keep any scheduled doctor appointments. Call [phone] to schedule a follow up appointment if one not already sc heduled. Pending Studies at Discharge: No Stand-Alone Forms: My [facility] [employer] [employer], Smoking Cessation Medications and DC Order Prescriptions: New oxycodone-acetaminophen [Percocet] 5-325 mg tablet 1 tab PO Q8H PRN (Reason: pain) Qty: 10 0RF pseudoephedrine HCl [Sudafed 12 Hour] 120 mg tablet extended release 120 mg PO Q12H Qty: 10 0RF Continued aspirin 81 mg tablet,chewable 1 tab PO QAM Centrum Silver 0.4-300-250 mg-mcg-mcg tablet 1 tab PO QAM Rx Instructions: ON HOLD FOR SURGERY glucosamine-chondroitin 250-200 mg tablet 1 tab PO QAM Rx Instructions: ON HOLD FOR SURGERY levothyroxine 75 mcg tablet 75 mcg PO QAM Qty: 90 1RF atorvastatin 40 mg Tablet 40 mg PO QAM 90 Days Qty: 90 0RF clopidogrel 75 mg tablet 75 mg PO QAM lisinopril 5 mg tablet 5 mg PO QAM calcitriol [Rocaltrol] 0.25 mcg capsule 0.25 mcg PO QAM omega-3 fatty acids 1,000 mg Capsule 1,000 mg PO QAM Rx Instructions: ON HOLD FOR SURGERY Discharge Orders: Discharge Order (Routine); Ordered 05/23/24 Ordered By: Nicola Rucker Admission Data Admit Date/Time: 05/21/24 13:30 Attending Provider: Nicola Rucker Admit Provider: Nicola Rucker Primary Care Provider: Hakan Marin
[2024-05-23 10:40] VITALS: BP 110/50
[2024-05-23 10:58] VITALS: PULSE 65
== END 2024-05-23 13:05 | disposition home or self-care (01) | DRG 36 ==
LOC: ASU 10:45 → 1E 13:30
PROC: EV.TCAR (2024-05-21 13:00)

== ENCOUNTER 2025-05-11 08:18 | Observation (INO) ==
--- NOTE | 2025-05-11 10:22 | Pre Anesthesia Assessment ---
Date of Service May 11, 2025 Pre Sedation Assessment Vital Signs Temp Pulse Resp BP Pulse Ox O2 Del Method 05/11/25 08:35 98.2 F 63 18 139/71 98 Room Air Cardiovascular + regular rate Respiratory + respiratory effort normal Pre-Sedation Airway Assessment Smoking Status: Never smoker Short, Thick Neck: No Thyromental Distance: < 3.5 Finger Breadths Oral Cavity: + WNL Mallampati Class: II ASA: ASA2 NPO Status Date of Last Intake of Fluids: 05/10/25 Time of Last Intake of Fluids: 21:00 Date of Last Intake of Solid Food: 05/10/25 Time of Last Intake of Solid Foods: 21:00 Procedure Planning Contraindications for Sedation: none Current Medications Reviewed: Yes Notes The planned sedation has been discussed with the patient. Informed Consent was obtained. I have identified the patient, determined the appropriateness of sedation and have assessed the patient immediately prior to the procedure. All medicine(s) and interventions are by my order.
--- NOTE | 2025-05-11 10:23 | History & Physical Bridge Note ---
Date of Service May 11, 2025 History & Physical Bridge Note I have examined the patient, reviewed the History & Physical and in the interval since the performance of the History & Physical I have noted the following changes of clinical significance: no changes noted
[2025-05-11] MEDS: MIDAZOLAM HCL 1 MG/ML 2ML VIAL ONE (11:54)
[2025-05-11] MEDS: HEPARIN (PORCINE) 1000 UNIT/ML 10 ML (CATH LAB USE ONLY) ONE ×2 (11:54→11:57)
[2025-05-11] MEDS: OPTIRAY 350 ONE (11:54)
[2025-05-11] MEDS: niCARdipine 2,000 MCG/20 ML SYR ONE (11:56)
[2025-05-11] MEDS: NITROGLYCERIN/D5W 100MCG/ML 20ML SYR ONE (11:57)
[2025-05-11] MEDS: ASPIRIN 81 MG CHEW ONE (11:57)
[2025-05-11] MEDS: CLOPIDOGREL BISULFATE 300 MG TAB ONE (11:57)
--- NOTE | 2025-05-11 12:09 | Post Anesthesia Assessment ---
Date of Service May 11, 2025 Post Sedation Assessment Vital Signs Temp Pulse Resp BP Pulse Ox O2 Del Method 05/11/25 08:35 98.2 F 63 18 139/71 98 Room Air Recovery Score Activity: Moves 4 extremities Respiration: Deep Breath/Cough Circulation: +/-20% PreAnes Value Consciousness: Fully Awake Oxygen Saturation: O2 needed for >90% Discharge Sedation Level of Care: Fast Track Phase II
[2025-05-11] MEDS ORDERED: ACETAMINOPHEN 325 MG TAB PO PRN (16:51)
--- NOTE | 2025-05-11 17:41 | Cardiac Catheterization ---
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 Cardiac Status Clinical evaluation leading to the procedure CAD Presenation: Sx unlikely to be ischemic Diagnostic Physicians Name: Wilfredo López MD Closure Device Recommendations: PCI without planned CABG Cardiac Cath Procedure Full Procedure Date May 11, 2025 Pre-Procedure Diagnosis Pre-Procedure Diagnosis: Valvular Disease AUC Score AUC Score: 7 Post-Procedure Diagnosis Post-Procedure Diagnosis: Severe CAD and Successful PCI Procedure(s) Performed Procedure(s) Performed: Coronary Angiography, Drug Eluting Stent and Fractional Flow [place] [employer] 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 Remainder of vessel tortuous without significant disease. Medium D2 with 70-80% proximal stenosis. Circumflex -large caliber, 40-50% ostial, mid segment luminal irregularities. Large PLB's without significant disease. RCA -dominant, large caliber, 30-40% proximal, 80-90% earlymid stenosis, 40% diffuse distal disease. RPDA and PLB without significant disease. IFR of ostial circumflex, mid LAD Left main cannulated with JL 3.5 guide Dove Omniwire normalized and directed into mid circumflex IFR 0.97 left circumflex Wire pulled back into left main and redirected into LAD across mid LAD disease IFR 0.95 of mid LAD Wire removed and no apparent coronary complications -- PCI -- Antithrombotic therapy: Heparin, clopidogrel Procedure: RCA cannulated with JR4 guide Pre-procedure flow IRASEMA 3 [place] blue wire passed across lesion into distal vessel Dove IVUS catheter placed to mid RCA to determine extent of disease and for vessel sizing. Pullback revealed diffuse disease with severe earlymid stenosis and eccentric calcified plaque in proximal segment. Mid RCA lesion predilated with 2.5 compliant balloon Dilated lesion stented with 3.0 x 28 mm Xience drug-eluting stent Stent post-dilated with 4.0 noncompliant balloon IC vasodilators administered for spasm Post procedure IRASEMA 3 flow, stent well expanded with minimal residual stenosis and no apparent cardiac complications. Arterial Closure: TR band Summary: 1. Multivessel coronary artery disease - 80-90% earlymid RCA stenosis. 40% diffuse distal RCA disease 45% ostial circumflex (negative IFR 0.97) 50% mid LAD (negative IFR 0.95). 75% proximal D2 2. Successful PCI of proximal to mid RCA with single drug-eluting stent (3.0 x 28 mm Xience; postdilated with 4.0 NC). 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 Hemodynamics Rest Ao:: 105// Final Ao: 105//89 LV: -- Recommendations Recommendations: PCI without planned CABG Radiation Exposure (mGy) 1589 Contrast (mls) 125 Anesthesia Moderate 1128-1233 Procedural Complication(s) None Disposition PCU I attest to the content of the Intraoperative Record and any orders documented therein. Any exceptions are noted below. [facility] Card Cath Procedure Codes Cardiac Catheterization Procedure 1: Cardiovascular Cath Procedures: 42651 Coronaries Procedure 2: Cardiovascular Cath Procedures: 21533 (Doppler) Pressure Wire Therapeutic Services & Ancillary Procedure 1: Cardiovascular Tx and Anc Procedures: 05594 IV Ultrasound (Coronary or Graft) Moderate Sedation Procedure 1: Sedation/Anesthesia: 08019 Mod Sedation by the same physician;Init15 Min Child Age 5 & Up Procedure 2: Sedation/Anesthesia: 33138 Mod Sedation by the same physician; Ea [id number] Minutes Stenting Procedure 1: Cardiovascular Stent Procedures: 41653 Perc transcatheter placement of intracoronary stent(s), with ang PG Care Time/CCT Total # of Minutes Spent Total Time Spent with Patient: Total time spent is greater than 50% in coordination of care (as documented) at patient's floor/unit and/or counseling patient:
[2025-05-11] MEDS: PRAVASTATIN SOD 20 MG TAB PO SCH (19:26)
[2025-05-12 04:04] VITALS: RESP 18; O2SAT 97
[2025-05-12] MEDS: LEVOTHYROXINE SODIUM 75 MCG TABLET PO SCH (05:06)
[2025-05-12] MEDS: CLOPIDOGREL BISULFATE 75 MG TAB PO SCH (07:49)
[2025-05-12] MEDS: CHLORTHALIDONE 25 MG TAB PO SCH (07:49)
[2025-05-12] MEDS: METOPROLOL SUCC 25MG EXT REL TAB PO SCH (07:49)
[2025-05-12 11:18] VITALS: BP 102/56; PULSE 59; TEMP 97.3
--- NOTE | 2025-05-12 12:40 | Discharge Summary ---
Date of Service May 12, 2025 Admission HPI Per Admitting Provider Mr. Mast is a very pleasant 79-year-old man with a history of prior CVA, right TCAR, hypertension and severe aortic stenosis. He was referred for coronary angiography as part of TAVR evaluation. Discharge Data Procedures Performed Operation Date: 05/11/25 09:30 Actual Procedures p Cineradiography w/Routine Exam - Wilfredo López MD p Cath, Coronaries ONLY (no LV) - Wilfredo López MD s IVUS Coronary Single Vessel - Wilfredo López MD s Drug Eluting Stent SGl Vessel - Wilfredo López MD s Fraction Flow [place] Addl Ves - Wilfredo López MD s Fraction Flow [place] SGL Ves - Wilfredo López MD Hospital Course (1) CAD (coronary artery disease): Patient underwent cardiac catheterization via right radial artery: Summary: 1. Multivessel coronary artery disease - 80-90% earlymid RCA stenosis. 40% diffuse distal RCA disease 45% ostial circumflex (negative IFR 0.97) 50% mid LAD (negative IFR 0.95). 75% proximal D2 2. Successful PCI of proximal to mid RCA with single drug-eluting stent (3.0 x 28 mm Xience; postdilated with 4.0 NC). Postprocedure was admitted for observation. He remained chest pain-free overnight and electrically stable on telemetry. On postprocedure day 1 no apparent access site complications and was feeling well walking the halls. Discharged home on DAPT with aspirin, clopidogrel. Follow-up with [facility] valve clinic for consideration of TAVR will be arranged. Continued follow-up with [facility] cardiology, Dr. Leisa Junior. Discharge Instructions Home Medications glucosamine-chondroitin 250 mg-200 mg tablet 1 tab PO QAM 12/06/19 [History Confirmed 04/05/25] [id number]-[id number]-urtbe acid 0.4 mg-lycopene 300 mcg-lutein 250 mcg tablet (Centrum Silver) 1 tab PO QAM 12/06/19 [History Confirmed 04/05/25] clopidogrel 75 mg tablet 75 mg PO QAM 05/14/24 [History Confirmed 04/05/25] lisinopril 5 mg tablet 5 mg PO QAM 05/14/24 [History Confirmed 07/21/25] omega-3 fatty acids 1,000 mg capsule 1,000 mg PO QAM 05/14/24 [History Confirmed 04/05/25] chlorthalidone 50 mg tablet 50 mg PO DAILY #30 tabs 08/31/24 [Rx Confirmed 04/05/25] calcitriol 0.25 mcg capsule 0.25 mcg PO QAM #90 caps 09/22/24 [Rx Confirmed 04/05/25] methenamine hippurate 1 gram tablet 1 g PO BID #180 tabs 04/05/25 [Rx Confirmed 04/05/25] metoprolol succinate 25 mg tablet,extended release 24 hr mg PO DAILY 04/05/25 [History Confirmed 04/05/25] pravastatin 20 mg tablet mg PO QPM 04/05/25 [History Confirmed 04/05/25] levothyroxine 75 mcg tablet 75 mcg PO QAM #90 tabs 04/20/25 [Rx] aspirin 81 mg tablet 81 mg PO DAILY #90 tabs 05/12/25 [Rx] Coding Level of Care Code 59813 IN/OBS DISCH 30 MIN/LESS Diagnoses CAD (coronary artery disease) I25.10
[2025-05-12] MEDS: ASPIRIN 81 MG ECTAB PO SCH (12:52)
--- NOTE | 2025-05-14 06:09 | Electrocardiogram Report ---
Test Reason : Blood Pressure : */* mmHG Vent. Rate : 54 BPM Atrial Rate : 54 BPM P-R Int : 158 ms QRS Dur : 152 ms QT Int : 478 ms P-R-T Axes : 69 63 9 degrees QTcB Int : 453 ms Sinus bradycardia Right bundle branch block Abnormal ECG When compared with ECG of 16-May-2024 18:40, No significant change was found Confirmed by Arvin Rodriguez ([id number]) on 05/14/2025 6:09:03 AM Referred By: Betzaida Alicea Confirmed By: Arvin Rodriguez
== END 2025-05-12 13:30 | disposition home or self-care (01) ==
LOC: 4W 08:18 → CC 08:18
PROC: CLB.CCO (2025-05-11 09:30)
DX: Z79.890 Hormone replacement therapy; I10 Essential (primary) hypertension; E78.5 Hyperlipidemia, unspecified; I08.2 Rheumatic disorders of both aortic and tricuspid valves; Z79.82 Long term (current) use of aspirin; I25.84 Coronary atherosclerosis due to calcified coronary lesion; Z86.73 Personal history of transient ischemic attack (TIA), and cerebral infarction without residual deficits; I45.10 Unspecified right bundle-branch block; I25.10 Atherosclerotic heart disease of native coronary artery without angina pectoris; Z79.02 Long term (current) use of antithrombotics/antiplatelets; I27.20 Pulmonary hypertension, unspecified; Z79.899 Other long term (current) drug therapy